=== PATIENT | male | born 1970 | race Caucasian/White ===

== ENCOUNTER 2020-06-03 10:32 | Emergency (ER) | payer BC, SELFPAY ==
[2020-06-03 11:26] VITALS: BP 144/78; PULSE 78; RESP 14; TEMP 37.1; O2SAT 98; BMI 35.6
--- NOTE | 2020-06-03 11:29 | HMH.EDUTC ---
[facility] – [place] Disposition Clinical Impression: Exposure to COVID-19 virus Disposition: Home, Self-Care Condition on Discharge: Good Instructions: DI for COVID-19 (Suspected or Confirmed ), Coronavirus Disease 2019, COVID-19: Testing and Tracing, Preventing the Spread of Coronavirus Discharge Instructions Additional Instructions: *Monitor Temp, Over the counter Motrin or Tylenol as directed/as needed Tylenol every 4 hours and Motrin every 6 hours (as long as your family doctor has told you that you can take it) for fever or pain. and straight to ER if unable to lower temp less than 101.0 after medication given Follow up IMMEDIATELY for new or worsening symptoms or no Noticeable improvement over the next 48-72 hours. 911 for difficulty breathing or swallowing You were tested for today for COVID19 your test result should be back in the next 24-48 hours, you may call to the [facility] to see if your test results are back in the next 48 hours [phone] [facility] hours are 9am-9pm You was given a handout with instructions for Self Quarantine and Self isolation for while you wait on test results and what to do if they are positive If you are positive the Health Dept will be contacting you also Referrals: Carlitos Robledo JR, MD [Primary Care Provider] - Forms: Work/School Release Time of Disposition: 11:30 Medical Decision Making - Gilmer Inquiry Pt receiving controlled substance: No Gilmer was queried for this patient: No Vital Signs: 06/03/20 11:26 06/03/20 11:37 Temperature 98.7 F 98 F Temperature Source Oral Pulse Rate 78 Pulse Rate [Right] 78 Respiratory Rate 14 16 Blood Pressure 144/78 H Blood Pressure [Right Arm] 144/78 H Blood Pressure Mean [Right Arm] 100 Blood Pressure Source Automatic Cuff Blood Pressure Source [Right Arm] Automatic Cuff Blood Pressure Position Sitting Blood Pressure Position [Right Arm] Sitting 02 Sat by Pulse Oximetry 98 Oxygen Delivery Method Room Air Orders (Tests/Meds): ORDERS Category Date Time Status Covid-19 Nasal PCR ([facility]) Routine Lab 06/03/20 11:05 Received [facility] – [place] HPI - General Stated complaint: covid exposure Time Seen by Provider: 06/03/20 11:29 Mode of Arrival: Ambulatory Source of Information: Patient Limitations: No Limitations Description of Symptoms (Recalled from Triage Doc. by RN): covid exposure, no symtpoms HEENT Symptoms (Recalled from RN notes): No Resp Symptoms (Recalled from RN notes): No Skin Symptoms (Recalled from RN notes): No MS Symptoms (Recalled from RN notes): No Functional Status (Recalled from RN notes): na - History of Present Illness Provider Complaint: Patient states that he was recently about someone that tested positive for COVID State that he is not having any symptoms but due to close exposure he wanted to get tested - Worker's Comp Is this a Worker's Comp case?: No H History - Hepatitis A Screen Drug use history?: No High risk sexual behaviors?: No History of sexually transmitted infection?: No Currently employed?: No Childcare worker?: No Do you have indoor plumbing?: Yes Do you have electricity?: Yes Attestation statement:: This patient has been screened for Hepatitis A risk factors. I have reviewed the patient's past medical history: Yes ROS Obtained: Yes All systems reviewed & no additional complaints, Yes Systems reviewed as appropriate & no additional complaints - Constitutional Constitutional: Reports system reviewed and no additional complaints, except as docu, Denies body ache, Denies chills, Denies fever(s), Denies headache(s) - ENT Ears, Nose, Mouth, and Throat: Reports system reviewed and no additional complaints, except as docu - Cardiovascular Cardiovascular: Reports system reviewed and no additional complaints, except as docu - Respiratory Respiratory: Yes system reviewed and no additional complaints, except as docu - Gastrointestinal Gastrointestingal: Reports: system reviewed and no additional
[2020-06-03 11:37] VITALS: BP 144/78; PULSE 78; RESP 16; TEMP 36.6; O2SAT 98
== END 2020-06-03 11:38 | disposition home or self-care (01) ==
PROVIDERS: Emergency Provider Nurse Practitioner; PCP Family Medicine
DX: Z20.822 Contact with and (suspected) exposure to COVID-19 (principal)
CPT/HCPCS: 99202; G0463; U0003

== ENCOUNTER 2020-06-09 10:29 | Emergency (ER) | payer BC, SELFPAY ==
[2020-06-09 10:29] VITALS: BP 148/84; PULSE 85; RESP 14; TEMP 36.8; O2SAT 98; BMI 36.3
--- NOTE | 2020-06-09 11:22 | HMH.EDUTC ---
[facility] – [place] Clinical Impression: Exposure to COVID-19 virus Disposition: Home, Self-Care Condition on Discharge: Good Instructions: DI for COVID-19 (Suspected or Confirmed ), Preventing the Spread of Coronavirus Discharge Instructions Additional Instructions: *Monitor Temp, Over the counter Motrin or Tylenol as directed/as needed Tylenol every 4 hours and Motrin every 6 hours (as long as your family doctor has told you that you can take it) for fever or pain. and straight to ER if unable to lower temp less than 101.0 after medication given Follow up IMMEDIATELY for new or worsening symptoms or no Noticeable improvement over the next 48-72 hours. 911 for difficulty breathing or swallowing You were tested for today for COVID19 your test result should be back in the next 24-48 hours, you may call to the [facility] to see if your test results are back in the next 48 hours [phone] [facility] hours are 9am-9pm You was given a handout with instructions for Self Quarantine and Self isolation for while you wait on test results and what to do if they are positive If you are positive the Health Dept will be contacting you also Referrals: Carlitos Robledo JR, MD [Primary Care Provider] - Time of Disposition: 11:47 Medical Decision Making - Medical Records Medical records reviewed: No: I reviewed the patient's medical records. - Gilmer Inquiry Pt receiving controlled substance: No Vital Signs: 06/09/20 10:29 06/09/20 11:51 Temperature 98.3 F 98.5 F Temperature Source Oral Oral Pulse Rate 85 Pulse Rate [Right] 85 Respiratory Rate 14 14 Blood Pressure 148/84 H Blood Pressure [Right Arm] 148/84 H Blood Pressure Mean [Right Arm] 105 02 Sat by Pulse Oximetry 98 [facility] [place] HPI - General Stated complaint: covid re test Time Seen by Provider: 06/09/20 11:22 Mode of Arrival: Ambulatory Source of Information: Patient Limitations: No Limitations Description of Symptoms (Recalled from Triage Doc. by RN): pt request covid test pt c/o of cough HEENT Symptoms (Recalled from RN notes): No Resp Symptoms (Recalled from RN notes): Yes Skin Symptoms (Recalled from RN notes): No MS Symptoms (Recalled from RN notes): No Functional Status (Recalled from RN notes): wnl - History of Present Illness Provider Complaint: He is here needing a covid test to be allowed to go back to work. He denies any symptoms. - Related Data Allergies Allergy/AdvReac Type Severity Reaction Status Date / Time No Known Allergies Allergy Verified 06/09/20 10:57 - Worker's Comp Is this a Worker's Comp case?: No Is this an [facility] Worker's Comp?: No Is this a [facility] Worker's Comp?: No [facility] History - Hepatitis A Screen Drug use history?: No High risk sexual behaviors?: No History of sexually transmitted infection?: No Currently employed?: No Childcare worker?: No Do you have indoor plumbing?: Yes Do you have electricity?: Yes Attestation statement:: This patient has been screened for Hepatitis A risk factors. I have reviewed the patient's past medical history: Yes ROS Obtained: Yes All systems reviewed & no additional complaints - Constitutional Constitutional: Reports system reviewed and no additional complaints, except as docu - Eyes Eyes: Reports system reviewed and no additional complaints, except as docu - ENT Ears, Nose, Mouth, and Throat: Reports system reviewed and no additional complaints, except as docu - Cardiovascular Cardiovascular: Reports system reviewed and no additional complaints, except as docu - Respiratory Respiratory: Reports system reviewed and no additional complaints, except as docu - Gastrointestinal Gastrointestingal: Reports: system reviewed and no additional complaints, except as docu Physical Exam - General General appearance: alert, in no apparent distress - Head Head exam: atraumatic, normocephalic, normal inspection - Eye Eye exam: Present: normal appearance, PERRL, EOMI - ENT ENT exam:
[2020-06-09 11:51] VITALS: BP 148/84; PULSE 85; RESP 14; TEMP 36.9; O2SAT 98
== END 2020-06-09 11:53 | disposition home or self-care (01) ==
PROVIDERS: Emergency Provider Nurse Practitioner Family; PCP Family Medicine
DX: Z20.822 Contact with and (suspected) exposure to COVID-19 (principal)
CPT/HCPCS: 99202; G0463; U0003

== ENCOUNTER 2020-09-14 11:15 | Emergency (ER) | payer BC, SELFPAY ==
[2020-09-14 11:20] VITALS: BP 146/94; PULSE 110; RESP 14; TEMP 37.5; O2SAT 96; BMI 35.6
[2020-09-14 11:40] LABS: UTC Influenza A Antigen Negative (Negative); UTC Influenza B Antigen Negative (Negative)
--- NOTE | 2020-09-14 11:55 | HMH.EDUTC ---
[facility] – [place] Disposition Clinical Impression: Exposure to COVID-19 virus, Viral syndrome Disposition: Home, Self-Care Condition on Discharge: Good Instructions: DI for Viral Syndrome, DI for COVID-19 (Suspected or Confirmed ), Preventing the Spread of Coronavirus Discharge Instructions Additional Instructions: Drink plenty of fluids. Take tylenol for pain or fever. Return if you begin to have difficulty breathing. Follow up with your regular doctor. GO TO THE ER FOR ANY WORSENING SYMPTOMS Prescriptions: Benzonatate [Tessalon Perle 100mg Cap] 100 mg PO TIDP PRN #30 cap PRN Reason: Cough Transmission Status: Received by [facility] Azithromycin [Z-Angel 250mg Tab*] 250 mg PO UD DOSE PK #6 tab Transmission Status: Received by [facility] Referrals: PCP,No [Primary Care Provider] - Forms: Work/School Release Time of Disposition: 12:03 Medical Decision Making - Medical Records Medical records reviewed: No: I reviewed the patient's medical records. - Gilmer Inquiry Pt receiving controlled substance: No Vital Signs: 09/14/20 11:20 09/14/20 12:02 Temperature 99.5 F 99.5 F Temperature Source Oral Pulse Rate 110 H Pulse Rate [Right Brachial] 110 H Respiratory Rate 14 14 Blood Pressure 146/94 H Blood Pressure [Right Arm] 146/94 H Blood Pressure Mean [Right Arm] 111 Blood Pressure Source [Right Arm] Automatic Cuff Blood Pressure Position [Right Arm] Sitting 02 Sat by Pulse Oximetry 96 Oxygen Delivery Method Room Air - Lab Data Lab results reviewed: Yes: I reviewed the patient's lab results. Lab Results 09/14/20 11:29: Influenza Type A Ag Negative, Influenza Type B Ag Negative [facility] [place] HPI - General Stated complaint: covid test Time Seen by Provider: 09/14/20 11:56 Mode of Arrival: Ambulatory Source of Information: Patient Limitations: No Limitations Description of Symptoms (Recalled from Triage Doc. by RN): PATIENT C/O BODY ACHES AND HEADACHE SINCE YESTERDAY AFTERNOON AND HAD FEVER LAST NIGHT. HEENT Symptoms (Recalled from RN notes): No Resp Symptoms (Recalled from RN notes): No Skin Symptoms (Recalled from RN notes): No MS Symptoms (Recalled from RN notes): Yes Functional Status (Recalled from RN notes): WNL - History of Present Illness Provider Complaint: He states that for the past 2 daays he has had fever up to 101, and body aches. He denies any known sick contacts. - Related Data Previous Rx's Medication Instructions Recorded Azithromycin [Z-Angel 250mg Tab*] 250 mg PO UD DOSE PK #6 tab 09/14/20 Benzonatate [Tessalon Perle 100mg 100 mg PO TIDP PRN #30 cap 09/14/20 Cap] Allergies Allergy/AdvReac Type Severity Reaction Status Date / Time No Known Allergies Allergy Verified 06/09/20 10:57 - Worker's Comp Is this a Worker's Comp case?: No [facility] History - Hepatitis A Screen Drug use history?: No High risk sexual behaviors?: No History of sexually transmitted infection?: No Currently employed?: No Childcare worker?: No Do you have indoor plumbing?: Yes Do you have electricity?: Yes Attestation statement:: This patient has been screened for Hepatitis A risk factors. I have reviewed the patient's past medical history: Yes - Social History Alcohol Intake: never Occupational Status: other ROS Obtained: Yes All systems reviewed & no additional complaints - Constitutional Constitutional: Reports system reviewed and no additional complaints, except as docu - Eyes Eyes: Reports system reviewed and no additional complaints, except as docu - ENT Ears, Nose, Mouth, and Throat: Reports system reviewed and no additional complaints, except as docu - Cardiovascular Cardiovascular: Reports system reviewed and no additional complaints, except as docu - Respiratory Respiratory: Reports system reviewed and no additional complaints, except as docu - Gastrointestinal Gastrointestingal: Reports: system reviewed and no additional complaints
[2020-09-14 12:02] VITALS: BP 146/94; PULSE 110; RESP 14; TEMP 37.5; O2SAT 96
== END 2020-09-14 12:07 | disposition home or self-care (01) ==
PROVIDERS: Emergency Provider Nurse Practitioner Family
DX: Z20.822 Contact with and (suspected) exposure to COVID-19 (principal); B34.9 Viral infection, unspecified
CPT/HCPCS: 87804; 99202; G0463; U0003

== ENCOUNTER 2021-04-13 14:46 | Emergency (ER) | payer BC, SELFPAY ==
--- NOTE | 2021-04-13 14:57 | XR_ITS ---
PROCEDURE: XR ANKLE LT MIN 3V CLINICAL INDICATION: rolled COMPARISON: No exams were available for comparison FINDINGS: No fracture or dislocation. No lytic or blastic change. There is normal mineralization. Mild hypertrophic change of the lateral malleolus. Mild spurring of the anterior distal tibia. Small calcaneal spur. Other findings:None. IMPRESSION: Degenerative changes, no acute finding. Dictated by: Doroteo Freedman MD 04/13/2021 15:44 Doroteo Freedman MD in [place] 04/13/2021 15:44
--- NOTE | 2021-04-13 15:32 | HMH.EDUTC ---
[facility] – [place] Disposition Clinical Impression: Left ankle sprain Qualifiers: Encounter type: initial encounter Involved ligament of ankle: unspecified ligament Qualified Code(s): S93.402A - Sprain of unspecified ligament of left ankle, initial encounter Disposition: Home, Self-Care Condition on Discharge: Good Instructions: Ankle Sprain, DI for Ankle Sprain Additional Instructions: Rest the extremity, apply ice for 15 minutes as tolerated three or four times per day, Wear the stephenie wrap for compression, Elevate the extremity as tolerated while you are resting. Take ibuprofen for pain. I sent in a prescription to your pharmacy. Follow up with Dr. Kebede (podiatry). Sometimes there can be fractures that don't show up well on the first set of x-rays. So, you should follow up if you continue to have symptoms. I put in a referral but you need to call his office and schedule an appointment. Follow up with your regular doctor. GO TO THE ER FOR ANY WORSENING SYMPTOMS Prescriptions: Ibuprofen [Ibuprofen 600mg Tablet] 600 mg PO Q6HP PRN #30 tab PRN Reason: Mild Pain Transmission Status: Received by [id number] Referrals: Carlitos Robledo JR, MD [Primary Care Provider] - Jayshree Kebede DPM [Staff Physician] - Forms: Work/School Release Time of Disposition: 15:35 Medical Decision Making - Medical Records Medical records reviewed: No: I reviewed the patient's medical records. - Gilmer Inquiry Pt receiving controlled substance: No Vital Signs: 04/13/21 16:49 04/13/21 17:53 Temperature 98.3 F 98.3 F Temperature Source Oral Pulse Rate 77 Pulse Rate [Left] 77 Respiratory Rate 16 16 Blood Pressure 154/96 H Blood Pressure [Right Arm] 154/96 H Blood Pressure Mean [Right Arm] 115 02 Sat by Pulse Oximetry 96 - Radiology Data #1 Image(s): Ankle Image Reviewed: Yes I reviewed the patient's radiology image Preliminary Findings: Abnormal, No Fracture Seen PROCEDURE: XR ANKLE LT MIN 3V CLINICAL INDICATION: rolled COMPARISON: No exams were available for comparison FINDINGS: No fracture or dislocation. No lytic or blastic change. There is normal mineralization. Mild hypertrophic change of the lateral malleolus. Mild spurring of the anterior distal tibia. Small calcaneal spur. Other findings:None. IMPRESSION: Degenerative changes, no acute finding. Dictated by: Doroteo Freedman MD 04/13/2021 15:44 Doroteo Freedman MD in [place] 04/13/2021 15:44 [facility] [place] HPI - General Stated complaint: AO 1110, left ankle pain Time Seen by Provider: 04/13/21 15:32 - History of Present Illness Provider Complaint: He states that he was at work when he twisted his left ankle. This caused him to begin having left ankle pain and swelling. He states that walking and bearing weight on it make it worse. - Related Data Previous Rx's Medication Instructions Recorded Azithromycin [Z-Angel 250mg Tab*] 250 mg PO UD DOSE PK #6 tab 09/14/20 Benzonatate [Tessalon Perle 100mg 100 mg PO TIDP PRN #30 cap 09/14/20 Cap] Ibuprofen [Ibuprofen 600mg 600 mg PO Q6HP PRN #30 tab 04/13/21 Tablet] Allergies Allergy/AdvReac Type Severity Reaction Status Date / Time No Known Allergies Allergy Verified 06/09/20 10:57 [facility] History - Hepatitis A Screen Attestation statement:: This patient has been screened for Hepatitis A risk factors. I have reviewed the patient's past medical history: Yes - Social History Alcohol Intake: never Occupational Status: other ROS Obtained: Yes All systems reviewed & no additional complaints - Constitutional Constitutional: Denies chills, Denies fever(s) - Musculoskeletal Musculoskeletal: Reports as per HPI - Integumentary/Breasts Skin/Breast: Denies redness, Denies rash, Denies wounds Physical Exam - General General appearance: alert, in no apparent distress - Head Head exam: atraumatic, normocephalic, normal inspection - Eye Eye exam: Pre
[2021-04-13 16:49] VITALS: BP 154/96; PULSE 77; RESP 16; TEMP 36.8; O2SAT 96; BMI 33.3
[2021-04-13 17:53] VITALS: BP 154/96; PULSE 77; RESP 16; TEMP 36.8
== END 2021-04-13 17:54 | disposition home or self-care (01) ==
PROVIDERS: Emergency Provider Nurse Practitioner Family; PCP Family Medicine
DX: S93.402A Sprain of unspecified ligament of left ankle, initial encounter (principal); X50.1XXA Overexertion from prolonged static or awkward postures, initial encounter; Y92.69 Other specified industrial and construction area as the place of occurrence of the external cause; Y99.0 Civilian activity done for income or pay
CPT/HCPCS: 29515; 73610; 99202; G0463

== ENCOUNTER 2021-07-18 09:13 | Emergency (ER) | payer BC, SELFPAY ==
[2021-07-18 09:15] VITALS: BP 158/81; PULSE 103; RESP 17; TEMP 37.4; O2SAT 98; BMI 36.3
--- NOTE | 2021-07-18 09:38 | HMH.EDUTC ---
[facility] [place] Clinical Impression: Otitis media Qualifiers: Otitis media type: unspecified Laterality: left Qualified Code(s): H66.92 - Otitis media, unspecified, left ear Disposition: Home, Self-Care Condition on Discharge: Good Instructions: Sinusitis, DI for Sinusitis, Meclizine Additional Instructions: *Monitor Temp, Over the counter Motrin or Tylenol as directed/as needed Tylenol every 4 hours and Motrin every 6 hours (as long as your family doctor has told you that you can take it) for fever or pain. and straight to ER if unable to lower temp less than 101.0 after medication given *Warm salt water gargles may help to soothe the throat *Throat Lozenges *Warm fluids like tea with honey may help to soothe the throat *Sleep elevated *Humidifier/Vaporizer Follow up IMMEDIATELY for new or worsening symptoms or no Noticeable improvement over the next 48-72 hours. 911 for difficulty breathing or swallowing You were tested for today for COVID19 your test result should be back in the next 24-48 hours, you may check your results on the [facility] [employer] health Portal if you have trouble logging on or seeing your results you may call support If you are positive someone from the hospital will be calling you Make sure to take your Vitamins Vit. C Vit D and Zinc if you can take them Prescriptions: Meclizine HCl [Meclizine 25mg Tab] 25 mg PO Q8HP PRN #15 tab PRN Reason: Dizziness Transmission Status: [facility] Amoxicillin/Potassium Clav [Augmentin 875-125 Tablet] 1 tab PO Q12H 10 Days #20 tab Transmission Status: Pending to [id number] methylPREDNISolone [Medrol 4mg tab] 4 mg PO DIRECTED #21 tab Transmission Status: Pending to [id number] Referrals: Carlitos Robledo JR, MD [Primary Care Provider] - As needed Forms: Work/School Release Time of Disposition: 09:50 Medical Decision Making - Gilmer Inquiry Pt receiving controlled substance: No Gilmer was queried for this patient: No Vital Signs: 07/18/21 09:15 Temperature 99.4 F Temperature Source Oral Pulse Rate [Right Brachial] 103 H Respiratory Rate 17 Blood Pressure [Right Arm] 158/81 H Blood Pressure Mean [Right Arm] 106 Blood Pressure Source [Right Arm] Automatic Cuff Blood Pressure Position [Right Arm] Sitting 02 Sat by Pulse Oximetry 98 Oxygen Delivery Method Room Air - Lab Data Lab results reviewed: Yes: I reviewed the patient's lab results. Orders (Tests/Meds): ORDERS Category Date Time Status Covid-19 Nasal PCR ([facility]) Routine Lab 07/18/21 09:22 Received [facility] [place] - General Stated complaint: fever, sporadic dizziness Time Seen by Provider: 07/18/21 09:38 Mode of Arrival: Ambulatory Source of Information: Patient Limitations: No Limitations Description of Symptoms (Recalled from Triage Doc. 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
[2021-07-18 09:50] VITALS: BP 158/81; PULSE 103; RESP 17; TEMP 37.4; O2SAT 98
[2021-07-18 09:52] LABS: UTC Influenza A Antigen Negative (Negative)
[2021-07-18 09:53] LABS: UTC Influenza B Antigen Negative (Negative)
== END 2021-07-18 09:56 | disposition home or self-care (01) ==
PROVIDERS: Emergency Provider Nurse Practitioner; PCP Family Medicine
DX: H66.92 Otitis media, unspecified, left ear (principal); R42 Dizziness and giddiness; R00.0 Tachycardia, unspecified; J01.90 Acute sinusitis, unspecified; R50.9 Fever, unspecified; M79.10 Myalgia, unspecified site; R23.2 Flushing; Z20.822 Contact with and (suspected) exposure to COVID-19; Z79.899 Other long term (current) drug therapy
CPT/HCPCS: 87804; 99202; 99212; 99213; C9803; G0463; U0003; U0005

== ENCOUNTER 2021-10-29 19:09 | Emergency (ER) | payer BC, SELFPAY ==
--- NOTE | 2021-10-29 19:19 | XR_ITS ---
PROCEDURE INFORMATION: Exam: XR Left Ribs with PA Chest Exam date and time: 10/29/2021 7:16 PM Age: 51 years old Clinical indication: Injury or trauma; Fall; Rib area, left side; Blunt trauma TECHNIQUE: Imaging protocol: XR Left ribs with PA chest. Views: 3 views COMPARISON: No relevant prior studies available. FINDINGS: Lungs: Visualized lungs are clear. Pleural spaces: No pleural effusion. No pneumothorax. Heart/Mediastinum: Within normal limits. Bones/joints: No acute fracture or malalignment. Soft tissues: Unremarkable. IMPRESSION: No acute findings. No evidence of displaced rib fracture.
[2021-10-29 19:50] VITALS: BP 138/90; PULSE 89; RESP 19; TEMP 36.8; O2SAT 96; BMI 34.2
--- NOTE | 2021-10-29 20:25 | HMH.EDUTC ---
[facility] [place] Disposition Clinical Impression: Rib pain on left side Disposition: Home, Self-Care Condition on Discharge: Good Instructions: DI for Rib Contusion, How To Perform RICE (Rest, Ice, Compress, Elevate), Acetaminophen (Alternative Therapy) Additional Instructions: *Ibuprofen cory 6 hours with meal as needed for pain/inflammation if you can take it if not take Tylenol *Not additional anti-inflammatory like motrin, aleve, advil with the above amount of ibuprofen. You can still take Tylenol every 4 hours as needed if you need something else for pain *Ice 20 minutes every 2 hours for the first 48 hours after the initial injury followed by moist heat every 20 minutes 3-4 times a day to affected area *Keep this area active, no movement leads to more stiffness, However take it easy and avoid heavy lifting pushing or pulling *Follow up with you family doctor if no improvement for further treatment Over the counter Lidocaine patches may help with pain and discomfort Referrals: Carlitos Robledo JR, MD [Primary Care Provider] - As needed Time of Disposition: 20:34 Medical Decision Making - Gilmer Inquiry Pt receiving controlled substance: No Gilmer was queried for this patient: No Vital Signs: 10/29/21 19:50 Temperature 98.3 F Temperature Source Oral Pulse Rate [Right Brachial] 89 Respiratory Rate 19 Blood Pressure [Right Arm] 138/90 Blood Pressure Mean [Right Arm] 106 Blood Pressure Source [Right Arm] Automatic Cuff Blood Pressure Position [Right Arm] Sitting 02 Sat by Pulse Oximetry 96 Oxygen Delivery Method Room Air - Radiology Data #1 Image(s): Chest (with left ribs) Image Reviewed: Yes I have reviewed radiologist's interpretation IMPRESSION: No acute findings. No evidence of displaced rib fracture. [facility] [place] HPI - General Stated complaint: AO fell 1530 hurt rib Time Seen by Provider: 10/29/21 20:25 Mode of Arrival: Ambulatory Source of Information: Patient Limitations: No Limitations Description of Symptoms (Recalled from Triage Doc. by RN): PATIENT STATES THAT HE WAS TAKING OUT THE TRASH AND SOMETHING HIT HIM IN HIS LEFT RIB AREA HEENT Symptoms (Recalled from RN notes): No Resp Symptoms (Recalled from RN notes): No Skin Symptoms (Recalled from RN notes): No MS Symptoms (Recalled from RN notes): Yes Functional Status (Recalled from RN notes): wnl - History of Present Illness Provider Complaint: Patient states that he was taking the trash out this evening when he hit his left ribs on the edge of the trash can States that he has been having pain in left ribs ever since about 4pm that is worse when he moves certain ways Denies any other injury Denies chest pain - Related Data Previous Rx's Medication Instructions Recorded Amoxicillin/Potassium Clav 1 tab PO Q12H 10 Days #20 tab 07/18/21 [Augmentin 875-125 Tablet] Meclizine HCl [Meclizine 25mg Tab] 25 mg PO Q8HP PRN #15 tab 07/18/21 methylPREDNISolone [Medrol 4mg 4 mg PO DIRECTED #21 tab 07/18/21 tab] Allergies Allergy/AdvReac Type Severity Reaction Status Date / Time No Known Allergies Allergy Verified 06/09/20 10:57 - Worker's Comp Is this a Worker's Comp case?: No [facility] History - Hepatitis A Screen Attestation statement:: This patient has been screened for Hepatitis A risk factors. I have reviewed the patient's past medical history: Yes - Social History Alcohol Intake: never Occupational Status: other ROS Obtained: Yes All systems reviewed & no additional complaints, Yes Systems reviewed as appropriate & no additional complaints - Constitutional Constitutional: Reports system reviewed and no additional complaints, except as docu, Denies body ache, Denies chills, Denies fever(s) - Eyes Eyes: Reports system reviewed and no additional complaints, except as docu - ENT Ears, Nose, Mouth, and Throat: Reports system reviewed and no additional complaints, except as docu - Cardiovascular Cardiovascular: Reports sy
[2021-10-29 20:36] VITALS: BP 138/90; PULSE 89; RESP 19; TEMP 36.8; O2SAT 96
== END 2021-10-29 20:40 | disposition home or self-care (01) ==
PROVIDERS: Emergency Provider Nurse Practitioner; PCP Family Medicine
DX: S20.212A Contusion of left front wall of thorax, initial encounter (principal); W22.8XXA Striking against or struck by other objects, initial encounter; Y92.018 Other place in single-family (private) house as the place of occurrence of the external cause
CPT/HCPCS: 71101; 99212; G0463

== ENCOUNTER 2021-10-31 18:51 | Emergency (ER) | payer BC, SELFPAY ==
--- NOTE | 2021-10-31 19:09 | HMH.EDUTC ---
[facility] [place] Disposition Clinical Impression: Exposure to COVID-19 virus Disposition: Home, Self-Care Condition on Discharge: Good Instructions: DI for COVID-19 (Suspected or Confirmed ), Preventing the Spread of Coronavirus Discharge Instructions Additional Instructions: Drink plenty of fluids. Take tylenol for pain or fever. Return if you begin to have difficulty breathing. Follow up with your regular doctor. GO TO THE ER FOR ANY WORSENING SYMPTOMS Quarantine until you know the results of your covid-19 test. If it is positive, the health department should call you and give you further instructions about your length of Quarantine and other things. Notify your school or workplace of your results and follow their instructions regarding return to work/school. Referrals: Carlitos Robledo JR, MD [Primary Care Provider] - Time of Disposition: 19:37 Medical Decision Making - Medical Records Medical records reviewed: No: I reviewed the patient's medical records. - Gilmer Inquiry Pt receiving controlled substance: No Vital Signs: 10/31/21 19:21 10/31/21 19:41 Temperature 98.5 F 98.5 F Temperature Source Oral Pulse Rate 81 Pulse Rate [Left Radial] 81 Respiratory Rate 18 18 Blood Pressure 156/87 H Blood Pressure [Right Arm] 156/87 H Blood Pressure Mean [Right Arm] 110 02 Sat by Pulse Oximetry 94 L Orders (Tests/Meds): ORDERS Category Date Time Status Covid-19 Nasal PCR ([facility]) Routine Lab 10/31/21 19:12 Received [facility] [place] HPI - General Stated complaint: covid test Time Seen by Provider: 10/31/21 19:09 - History of Present Illness Provider Complaint: A member of his family tested positive for covid-19 today. He denies any symptoms. - Related Data Previous Rx's Medication Instructions Recorded Amoxicillin/Potassium Clav 1 tab PO Q12H 10 Days #20 tab 07/18/21 [Augmentin 875-125 Tablet] Meclizine HCl [Meclizine 25mg Tab] 25 mg PO Q8HP PRN #15 tab 07/18/21 methylPREDNISolone [Medrol 4mg 4 mg PO DIRECTED #21 tab 07/18/21 tab] Allergies Allergy/AdvReac Type Severity Reaction Status Date / Time No Known Allergies Allergy Verified 06/09/20 10:57 [facility] History - Hepatitis A Screen Attestation statement:: This patient has been screened for Hepatitis A risk factors. I have reviewed the patient's past medical history: Yes - Social History Alcohol Intake: never Occupational Status: other ROS Obtained: Yes All systems reviewed & no additional complaints - Constitutional Constitutional: Denies chills, Denies fever(s) - Eyes Eyes: Denies eye discharge - ENT Ears, Nose, Mouth, and Throat: Denies dizziness, Denies otalgia, Denies sore throat Physical Exam - General General appearance: alert, in no apparent distress - Head Head exam: atraumatic, normocephalic, normal inspection - Eye Eye exam: Present: normal appearance, PERRL, EOMI - ENT ENT exam: Present: normal exam, normal oropharynx, mucous membranes moist, TM's normal bilaterally, normal external ear exam - Neck Neck exam: Present: normal inspection, full ROM, trachea midline. Absent: meningismus, lymphadenopathy - Chest Chest inspection: Present: normal inspection, symmetric chest wall rise. Absent: tenderness - Respiratory Respiratory exam: Present: normal lung sounds bilaterally. Absent: respiratory distress - Cardiovascular Cardiovascular exam: Present: regular rate, normal rhythm. Absent: JVD - Abdominal Exam Abdominal exam: Present: soft, normal bowel sounds. Absent: distention, tenderness, guarding - Extremities Exam Extremities exam: Present: normal inspection, full ROM, normal capillary refill. Absent: calf tenderness - Back Exam Back exam: Present: normal inspection. Absent: tenderness - Neurological Exam Neurological exam: Present: alert, oriented X3 - Psychiatric Psychiatric exam: Present: normal affect, normal mood - Skin Skin exam: Present: warm
[2021-10-31 19:21] VITALS: BP 156/87; PULSE 81; RESP 18; TEMP 36.9; O2SAT 94; BMI 33.9
[2021-10-31 19:41] VITALS: BP 156/87; PULSE 81; RESP 18; TEMP 36.9
== END 2021-10-31 19:46 | disposition home or self-care (01) ==
PROVIDERS: Emergency Provider Nurse Practitioner Family; PCP Family Medicine
DX: Z20.822 Contact with and (suspected) exposure to COVID-19 (principal)
CPT/HCPCS: 99212; C9803; G0463; U0003; U0005

== ENCOUNTER 2022-02-20 14:12 | Emergency (ER) | payer BC, SELFPAY ==
--- NOTE | 2022-02-20 14:33 | XR_ITS ---
FINAL REPORT CLINICAL HISTORY: rolled right ankle, pain COMPARISON: April 13, 2021 FINDINGS: LEFT ANKLE: Three views of the left ankle were obtained. There is no acute fracture or dislocation. The joint spaces and mortise are intact. There is soft tissue edema particularly over the lateral malleolus. An ankle joint effusion is present. There is a small plantar spur. IMPRESSION: No acute bony abnormality. Reviewed, Interpreted and Dictated by Beltran Mccloud MD Transcribed by Chilango Kim Authenticated and [facility]
--- NOTE | 2022-02-20 14:33 | XR_ITS ---
FINAL REPORT CLINICAL HISTORY: rolled right ankle, pain FINDINGS: 3 views of the left foot were obtained. There is no acute fracture or dislocation. There is moderate joint space narrowing at the 1st IP joint. There is a small plantar spur. A moderate ankle joint effusion is noted. IMPRESSION: No acute bony abnormality. Reviewed, Interpreted and Dictated by Beltran Mccloud MD Transcribed by Chilango Kim Authenticated and . [facility]
[2022-02-20 14:40] VITALS: BP 159/91; PULSE 101; RESP 18; TEMP 36.9; O2SAT 98; BMI 33.7
--- NOTE | 2022-02-20 14:41 | EXP.UTC ---
Discharge Plan Disposition Patient Disposition: Home, Self-Care Condition: Good Prescriptions Prescriptions: New ibuprofen [IBU] 800 mg tablet 800 mg PO Q8HP PRN (Reason: Moderate Pain) Qty: 30 0RF No Action methylprednisolone 4 MG tablet 4 mg PO DIRECTED Qty: 21 0RF Rx Instructions: Take as directed on package instructions amoxicillin-pot clavulanate 1 EACH tablet 1 tab PO Q12H 10 Days Qty: 20 0RF meclizine 25 MG tablet,chewable 25 mg PO Q8HP PRN (Reason: Dizziness) Qty: 15 0RF Referrals Follow up/Referrals: Provider,Referral, MD [Primary Care Provider] - See instructions Activity Restrictions/Add. Instructions Additional Instructions/Restrictions: Rest the extremity, apply ice for 15 minutes as tolerated three or four times per day, Wear the stephenie wrap for compression, Elevate the extremity as tolerated while you are resting. Take ibuprofen for pain. I sent in a prescription to your pharmacy. Follow up with Dr. Kebede (podiatry). Sometimes there can be fractures that don't show up well on the first set of x-rays. So, you should follow up if you continue to have symptoms. I put in a referral but you need to call her office and schedule an appointment. Follow up with your regular doctor. GO TO THE ER FOR ANY WORSENING SYMPTOMS Clinical Impressions Clinical Impression: Left ankle sprain Discharge ED Provider: Howard Chamberlain [facility] General Stated complaint: LEFT ANKLE ROLLED IT Time Seen by Provider: 02/20/22 14:41 History of Present Illness Provider Complaint: He states that he twisted his left ankle yesterday. He is having left ankle and foot pain. Related Data Previous Rx's Medication Instructions Recorded amoxicillin 875 mg-potassium 1 tab PO Q12H 10 days #20 tabs 07/18/21 clavulanate 125 mg tablet meclizine 25 mg chewable tablet 25 mg PO Q8HP PRN Dizziness #15 07/18/21 tabs methylprednisolone 4 mg tablet 4 mg PO DIRECTED #21 tabs 07/18/21 ibuprofen 800 mg tablet (IBU) 800 mg PO Q8HP PRN Moderate Pain 02/20/22 #30 tabs Allergies Allergy/AdvReac Type Severity Reaction Status Date / Time No Known Allergies Allergy Verified 06/09/20 10:57 [facility] Social History Smoking Status: Never smoker alcohol intake: never current occupational status: other Travel in the last 8 weeks: None ROS Obtained: Yes All systems reviewed & no additional complaints except as documented Constitutional Constitutional: Denies chills and Denies fever(s) Integumentary/Breasts Skin/Breast: Denies redness, Denies rash and Denies wounds Neurologic Neurologic: Denies paresthesias Physical Exam General General appearance: alert and in no apparent distress Head Head exam: atraumatic, normocephalic and normal inspection Eye Eye exam: Present normal appearance, PERRL and EOMI ENT ENT exam: Present normal exam, normal oropharynx, mucous membranes moist, TM's normal bilaterally and normal external ear exam Neck Neck exam: Present normal inspection, full ROM and trachea midline; Absent meningismus or lymphadenopathy Chest Chest inspection: Present normal inspection and symmetric chest wall rise; Absent tenderness Respiratory Respiratory exam: Present normal lung sounds bilaterally; Absent respiratory distress Cardiovascular Cardiovascular exam: Present regular rate and normal rhythm; Absent JVD Abdominal Exam Abdominal exam: Present soft and normal bowel sounds; Absent distention, tenderness or guarding Extremities Exam Extremities exam: Present normal capillary refill; Absent calf tenderness Expanded Lower Extremity Exam Left: Ankle exam: Present full ROM and tenderness; Absent swelling, abrasion, laceration, ecchymosis, deformity, crepitus, dislocation, erythema, tenderness over talofibular lig or anterior draw sign Foot/toe exam: Present full ROM and tenderness; Absent swelling, abrasion, laceration
[2022-02-20 15:40] VITALS: BP 159/91; PULSE 101; RESP 18; TEMP 36.9; O2SAT 98
== END 2022-02-20 15:40 | disposition home or self-care (01) ==
PROVIDERS: Emergency Provider Nurse Practitioner Family
DX: S93.402A Sprain of unspecified ligament of left ankle, initial encounter (principal)
CPT/HCPCS: 73610; 73630; 99213; G0463

== ENCOUNTER 2022-06-24 12:40 | Emergency (ER) | payer OTHER, SELFPAY ==
--- NOTE | 2022-06-24 12:48 | XR_ITS ---
PROCEDURE INFORMATION: Exam: XR Right Shoulder Exam date and time: 06/24/2022 12:54 PM Age: 51 years old Clinical indication: Injury or trauma; Fall; Blunt trauma (contusions or hematomas); Shoulder; Right TECHNIQUE: Imaging protocol: Radiologic exam of the Right shoulder. Views: 2 or more views. COMPARISON: No relevant prior studies available. FINDINGS: Bones/joints: No acute fracture. Small ossicle at the acromial clavicular joint. No significant degenerative joint disease. Soft tissues: Soft tissue swelling overlying the shoulder. IMPRESSION: 1. No acute fracture. Small ossicle at the acromial clavicular joint. No significant degenerative joint disease. 2. Soft tissue swelling overlying the shoulder.
[2022-06-24 13:15] VITALS: BP 146/86; PULSE 76; RESP 19; TEMP 36.7; O2SAT 98; BMI 34.4
--- NOTE | 2022-06-24 13:58 | EXP.UTC ---
Discharge Plan Disposition Patient Disposition: Home, Self-Care Condition: Good Prescriptions Prescriptions: New ibuprofen [IBU] 800 mg tablet 800 mg PO TIDP PRN (Reason: Moderate Pain) Qty: 20 0RF methocarbamol 500 mg tablet 500 mg PO Q8H PRN (Reason: muscle spasm) Qty: 15 0RF No Action methylprednisolone 4 MG tablet 4 mg PO DIRECTED Qty: 21 0RF Rx Instructions: Take as directed on package instructions amoxicillin-pot clavulanate 1 EACH tablet 1 tab PO Q12H 10 Days Qty: 20 0RF meclizine 25 MG tablet,chewable 25 mg PO Q8HP PRN (Reason: Dizziness) Qty: 15 0RF ibuprofen [IBU] 800 mg tablet 800 mg PO Q8HP PRN (Reason: Moderate Pain) Qty: 30 0RF Referrals Follow up/Referrals: Provider,Referral, MD [Primary Care Provider] - See instructions Activity Restrictions/Add. Instructions Additional Instructions/Restrictions: *Ibuprofen cory 6 hours with meal as needed for pain/inflammation *Not additional anti-inflammatory like motrin, aleve, advil with the above amount of ibuprofen. You can still take Tylenol every 4 hours as needed if you need something else for pain *Ice 20 minutes every 2 hours for the first 48 hours after the initial injury followed by moist heat every 20 minutes 3-4 times a day to affected area *Muscle relaxer every 8 hours as needed for muscle spasms but remember, it WILL cause drowsiness You cannot take it and drive, operate machinery or care for small children. *Keep this area active, no movement leads to more stiffness, However take it easy and avoid heavy lifting pushing or pulling *Follow up with you family doctor if no improvement for further treatment Clinical Impressions Clinical Impression: Right shoulder pain Instructions Patient Instructions: DI for Shoulder Pain, DI for Muscle Spasm, Ibuprofen Discharge ED Provider[place] Miranda Zav[place] [facility] [place] Stated complaint: AO@home 06/23 RT shoulder pain Mode of Arrival: Ambulatory Source of Information: Patient Limitations: No Limitations Time Seen by Provider: 06/24/22 13:59 Description of Symptoms (Recalled from Triage Doc. by RN): PATIENT REPORTS FALLING LAST NIGHT AND LANDING ON RIGHT SHOULDER HEENT Symptoms (Recalled from RN notes): No Resp Symptoms (Recalled from RN notes): No Skin Symptoms (Recalled from RN notes): No MS Symptoms (Recalled from RN notes): Yes Functional Status (Recalled from RN notes): WNL History of Present Illness Provider Complaint: Patient states that he fell last night and landed on his right shoulder states that since then he has been having spasm like pain in his shoulder that at times will shoot down his arm States that he has been still able to move it just hurts at times when he does Related Data Previous Rx's Medication Instructions Recorded amoxicillin 875 mg-potassium 1 tab PO Q12H 10 days #20 tabs 07/18/21 clavulanate 125 mg tablet meclizine 25 mg chewable tablet 25 mg PO Q8HP PRN Dizziness #15 07/18/21 tabs methylprednisolone 4 mg tablet 4 mg PO DIRECTED #21 tabs 07/18/21 ibuprofen 800 mg tablet (IBU) 800 mg PO Q8HP PRN Moderate Pain 02/20/22 #30 tabs ibuprofen 800 mg tablet (IBU) 800 mg PO TIDP PRN Moderate Pain 06/24/22 #20 tabs methocarbamol 500 mg tablet 500 mg PO Q8H PRN muscle spasm #15 06/24/22 tabs Allergies Allergy/AdvReac Type Severity Reaction Status Date / Time No Known Allergies Allergy Verified 06/09/20 10:57 Worker's Comp Is this a Worker's Comp case?: No [facility] Disclaimer: The information contained in this section may have been updated after the patient was seen, as this information can be updated by other users. Social History (Updated 02/20/22 @ 23:11 by Howard Chamberlain APRN) Smoking Status: Never smoker alcohol intake: never current occupational status: other Travel in the last 8 weeks: None ROS Obtained: Yes All systems reviewed & no additional complaints except as documented and Yes Systems reviewed a
[2022-06-24 14:14] VITALS: BP 146/86; PULSE 76; RESP 19; TEMP 36.7; O2SAT 98
== END 2022-06-24 14:16 | disposition home or self-care (01) ==
PROVIDERS: Emergency Provider Nurse Practitioner
DX: M25.511 Pain in right shoulder (principal); W19.XXXA Unspecified fall, initial encounter
CPT/HCPCS: 73030; 99212; 99213; G0463

== ENCOUNTER → 2022-07-19 12:43 | Outpatient (CLI) | payer OTHER, SELFPAY ==
[2022-07-19 13:58] VITALS: BMI 33.5
--- NOTE | 2022-07-25 15:03 | DIET.NUTRFU ---
Patient called RD to review BS over the last couple days 110-130 with today being 155 and he seemed concerned. He was also complaining of a HARDIN and not feeling well which may have contributed to increase BS. provider did give him a goal of 110-130 but definitely below 200, the is RD agreed. Also reviewed low BS, call provide if 40 or below. Has blood draw for A1c in August
== END ==
PROVIDERS: PCP Nurse Practitioner Family; Visit Provider Nurse Practitioner Family
DX: Z71.3 Dietary counseling and surveillance (principal); E78.00 Pure hypercholesterolemia, unspecified
CPT/HCPCS: 97802

== ENCOUNTER 2022-07-31 17:55 | Emergency (ER) | payer OTHER, SELFPAY ==
[2022-07-31 18:30] VITALS: BP 158/83; PULSE 74; RESP 20; TEMP 37.5; O2SAT 96; BMI 32.8
[2022-07-31 18:56] LABS: UTC Influenza A Antigen Negative (Negative); UTC Influenza B Antigen Negative (Negative)
--- NOTE | 2022-07-31 19:32 | EXP.UTC ---
Discharge Plan Disposition Patient Disposition: Home, Self-Care Condition: Good Prescriptions Prescriptions: New benzonatate 100 mg capsule 100 mg PO TID PRN (Reason: cough) Qty: 30 0RF fluticasone propionate [Flonase Allergy Relief] 50 mcg/actuation spray,suspension 1 spray intranasal DAILY Qty: 16 0RF Rx Instructions: administer into each nostril Referrals Follow up/Referrals: Shayla Peterson APRN [Primary Care Provider] - See instructions Activity Restrictions/Add. Instructions Additional Instructions/Restrictions: *Monitor Temp, Over the counter Motrin or Tylenol as directed/as needed Tylenol every 4 hours and Motrin every 6 hours (as long as your family doctor has told you that you can take it) for fever or pain. and straight to ER if unable to lower temp less than 101.0 after medication given *Warm salt water gargles may help to soothe the throat *Throat Lozenges? *Warm fluids like tea with honey may help to soothe the throat? *Sleep elevated *Humidifier/Vaporizer *Flonase 2 sprays in each nostril daily but be aware that it may take 2-3 days before you notice improvement Follow up IMMEDIATELY for new or worsening symptoms or no Noticeable improvement over the next 48-72 hours. 911 for difficulty breathing or swallowing You were tested for today for Upper Respiratory Panel with COVID19 your test result should be back in the next 24-48 hours, you may check your results on the [facility] Clinical Impressions Clinical Impression: Viral syndrome Instructions Patient Instructions: Cough, DI for Cough -- Adult, DI for Viral Upper Respiratory Infection -- Adult Discharge ED Provider: Miranda Zavala [facility] [place] General Stated complaint: cough Fever Chills Mode of Arrival: Ambulatory Source of Information: Patient Limitations: No Limitations Time Seen by Provider: 07/31/22 19:32 Description of Symptoms (Recalled from Triage Doc. by RN): PATIENT C/O BODY ACHES, CHILLS AND FEVER HEENT Symptoms (Recalled from RN notes): No Resp Symptoms (Recalled from RN notes): No Skin Symptoms (Recalled from RN notes): No MS Symptoms (Recalled from RN notes): No Functional Status (Recalled from RN notes): WNL History of Present Illness Provider Complaint: Patient states that for the last week he has been having body aches, chills and fever States that he has had a bad cough and seen his PCP 2 days ago and was dx with URI and given Prometh DM but it hasnt helped much State that he is staying up due to the cough so today he came back in again to get checked worried he may have flu or something Related Data Previous Rx's Medication Instructions Recorded benzonatate 100 mg capsule 100 mg PO TID PRN cough #30 caps 07/31/22 fluticasone propionate 50 1 spray intranasal DAILY #16 grams 07/31/22 mcg/actuation nasal spray,suspension (Flonase Allergy Relief) Allergies Allergy/AdvReac Type Severity Reaction Status Date / Time No Known Allergies Allergy Verified 06/09/20 10:57 Worker's Comp Is this a Worker's Comp case?: No PFSH PFS Disclaimer: The information contained in this section may have been updated after the patient was seen, as this information can be updated by other users. Social History (Updated 02/20/22 @ 23:11 by Howard Chamberlain APRN) Smoking Status: Never smoker alcohol intake: never current occupational status: other Travel in the last 8 weeks: None ROS Obtained: Yes All systems reviewed & no additional complaints except as documented and Yes Systems reviewed as appropriate & no additional complaints except as documented Constitutional Constitutional: Reports system reviewed and no additional complaints, except as documented, Reports as per HPI, Reports body ache, Reports chills and Reports fever(s) ENT Ears, Nose, Mouth, and Throat: Reports system reviewed and no additional complaints, except as documented and Reports as per HPI Cardiovascular
[2022-07-31 19:33] VITALS: BP 158/83; PULSE 74; RESP 20; TEMP 37.5; O2SAT 96
== END 2022-07-31 19:55 | disposition home or self-care (01) ==
PROVIDERS: Emergency Provider Nurse Practitioner; PCP Nurse Practitioner Family
DX: B34.9 Viral infection, unspecified (principal); R05.9 Cough, unspecified; R50.9 Fever, unspecified
CPT/HCPCS: 87804; 99212; 99213; C9803; G0463; U0003; U0005

== ENCOUNTER → 2022-08-16 12:58 | Outpatient (CLI) | payer OTHER, SELFPAY ==
--- NOTE | 2022-08-16 13:05 | XR_ITS ---
FINAL REPORT CLINICAL HISTORY: COUGH COMPARISON: 10/29/2021 FINDINGS: Two views of the chest were obtained. The heart size and pulmonary vascularity are within normal limits. The mediastinum is normal. No acute pulmonary abnormality is identified. There is no pneumothorax. The bony thorax is intact. IMPRESSION: No active cardiopulmonary disease. Reviewed, Interpreted and Dictated by Sylvester Doyle III, MD Transcribed by Shayla Oneal Authenticated and [facility]
== END ==
PROVIDERS: PCP Nurse Practitioner Family; Visit Provider Nurse Practitioner Family
DX: R05.9 Cough, unspecified (principal)
CPT/HCPCS: 71046

== ENCOUNTER 2022-08-19 18:40 | Observation (INO) | payer OTHER, SELFPAY ==
--- NOTE | 2022-08-19 | ECG_ITS ---
APPROVED REPORT Exam: Resting ECG HR:108 bpm ECG Measurements Heart Rate 108 AXES AL 150 P 60 QRSd 125 QRS -66 QT 343 T 88 QTc 407 Conclusion SINUS TACHYCARDIA LEFT ANTERIOR FASCICULAR BLOCK [QRS AXIS <= -45, QR IN I, RS IN II] LEFT VENTRICULAR HYPERTROPHY AND ST-T CHANGE [VOLTAGE CRITERIA PLUS ST/T ABNORMALITY] POSSIBLE SEPTAL MYOCARDIAL INFARCTION , OF INDETERMINATE AGE [30 ms Q WAVE IN V1/V2] ABNORMAL ECG UNCONFIRMED REPORT Electronically signed by : Zach Faust MD 08/20/2022 17:28:44
[2022-08-19 18:57] VITALS: BP 124/103; PULSE 109; RESP 16; TEMP 36.7; O2SAT 97; BMI 29.5
--- NOTE | 2022-08-19 18:57 | PC.NURSE ---
covid swab to lab
--- NOTE | 2022-08-19 18:57 | PC.NURSE ---
Dr. Najera at BS
[2022-08-19 19:00] LABS: POC Glucose,Bedside 153 (70-110)
--- NOTE | 2022-08-19 19:03 | XR_ITS ---
PROCEDURE INFORMATION: Exam: XR Chest Exam date and time: 08/19/2022 7:28 PM Age: 51 years old Clinical indication: Cough; Additional info: Cough, AMS TECHNIQUE: Imaging protocol: Radiologic exam of the chest. Views: 1 view. COMPARISON: CR XR CHEST 2V 08/16/2022 1:12 PM FINDINGS: Lungs: Unremarkable. No consolidation. Pleural spaces: Unremarkable. No pleural effusion. No pneumothorax. Heart/Mediastinum: Unremarkable. No cardiomegaly. Bones/joints: Unremarkable. IMPRESSION: No acute findings.
--- NOTE | 2022-08-19 19:03 | CT_ITS ---
PROCEDURE INFORMATION: Exam: CT Head Without Contrast Exam date and time: 08/19/2022 7:20 PM Age: 51 years old Clinical indication: Stroke-like symptoms; Altered mental status/memory loss; Additional info: AMS TECHNIQUE: Imaging protocol: Computed tomography of the head without contrast. Radiation optimization: All CT scans at this facility use at least one of these dose optimization techniques: automated exposure control; mA and/or kV adjustment per patient size (includes targeted exams where dose is matched to clinical indication); or iterative reconstruction. Other technique: STROKE PROTOCOL was implemented. REPORTING DATA: Count of CT and Cardiac NM exams in prior 12 months: This patient has received 0 known CTs and 0 known cardiac nuclear medicine studies in the 12 months prior to the current study. COMPARISON: No relevant prior studies available. FINDINGS: Brain: There is no evidence of infarct, carrizales-white matter differentiation is preserved. There is no hemorrhage or extra-axial collection. There is no mass. Cerebral ventricles: There is no hydrocephalus. 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 No hydrocephalus. Paranasal sinuses: Visualized sinuses are unremarkable. No fluid levels. Mastoid air cells: Visualized mastoid air cells are well aerated. Bones/joints: Unremarkable. No acute fracture. Soft tissues: Unremarkable. IMPRESSION: 1. 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 2. No acute intracranial lesion or injury ASSESSMENT: ASPECTS ([place] Stroke Program Early CT Score) is 10.
--- NOTE | 2022-08-19 19:05 | HMH.EDGENADL ---
Discharge Plan Disposition Patient Disposition: Admitted as Observation Condition: Fair Prescriptions Prescriptions: No Action benzonatate 200 mg capsule 200 mg PO TIDP PRN (Reason: Cough) Label Comments: TAKE 1 CAPSULE BY MOUTH THREE TIMES DAILY FOR 7 DAYS NEEDED metformin 500 mg tablet 500 mg PO DAILY Label Comments: TAKE 1 TABLET BY MOUTH ONCE DAILY cetirizine 10 mg tablet 10 mg PO DAILY Label Comments: TAKE 1 TABLET BY MOUTH ONCE DAILY FOR 30 DAYS fluticasone propionate 50 mcg/actuation spray,suspension 1 spray INTRANASAL DAILY Label Comments: USE 1 SPRAY(S) IN EACH NOSTRIL ONCE DAILY Jardiance 10 mg tablet 10 mg PO DAILY Label Comments: TAKE 1 TABLET BY MOUTH ONCE DAILY vitamin A 3,000 mcg (10,000 unit) Capsule 3,000 mcg PO DAILY Referrals Follow up/Referrals: Shayla Peterson APRN [Primary Care Provider] - See instructions Clinical Impressions Clinical Impression: Encephalopathy, Hyponatremia Discharge ED Provider: Arthur Najera General Adult HPI General Chief complaint: Altered Mental Status Stated complaint: confusion, resp virus on diagnosed on 08/16 Time Seen by Provider: 08/19/22 18:55 History of Present Illness HPI narrative: History obtained from patient and . Chief complaint is altered mental status and generalized weakness that started today. He has been sick for the past 3 weeks. He has had a nonproductive cough. The week before last he had high fevers, but those resolved. He saw his primary care provider last . He was diagnosed with a respiratory virus. He was prescribed an antihistamine but did not start taking it until today. His does not know whether these current symptoms started after that medication was started from before. He did not start the medication until today because he was already taking an ural-sou-jsmpjhi histamine which he has run out of. Denies headache. Denies any pain including neck pain, chest pain, abdominal pain. 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 He is diabetic. states he is not eating or drinking much today. Recent prescriptions are for cetirizine and benzonatate. Related Data Home Medications Medication Instructions Recorded Confirmed benzonatate 200 mg capsule 200 mg PO TIDP PRN Cough 08/19/22 08/19/22 cetirizine 10 mg tablet 10 mg PO DAILY Allergic rhinitis 08/19/22 08/19/22 empagliflozin 10 mg tablet 10 mg PO DAILY Diabetes 08/19/22 08/19/22 (Jardiance) fluticasone propionate 50 1 spray intranasal DAILY Allergic 08/19/22 08/19/22 mcg/actuation nasal rhinitis spray,suspension metformin 500 mg tablet 500 mg PO DAILY Diabetes 08/19/22 08/19/22 vitamin A 3,000 mcg (10,000 unit) 3,000 mcg PO DAILY Supplement 08/19/22 08/19/22 capsule Allergies Allergy/AdvReac Type Severity Reaction Status Date / Time No Known Allergies Allergy Verified 06/09/20 10:57 [facility] Disclaimer: The information contained in this section may have been updated after the patient was seen, as this information can be updated by other users. Social History Smoking Status: Never smoker alcohol intake: never current occupational status: other Travel in the last 8 weeks: None ROS Obtained: Yes Systems reviewed as appropriate & no additional complaints except as documented Constitutional Constitutional: Reports fever(s), Denies headache(s), Reports malaise and Reports weakness ENT Ears, Nose, Mouth, and Throat: Denies headache(s), Denies nasal discharge and Denies sore throat Cardiovascular Cardiovascular: Denies chest pain Respiratory Respiratory: Denies shortness of breath, Reports cough and Reports non-productive cough Gastrointestinal Gastrointestingal: Denies abdominal pain, constipation, diarrhea or vomiting Genitourinary Male Genitourinary: Denies d
[2022-08-19 19:07] LABS: Coronavirus 19, PCR Not Detected (NotDetected); Influenza A, PCR Not Detected (NotDetected); Influenza B, PCR Not Detected (NotDetected)
[2022-08-19 19:11] LABS: Basophils # 0.2 K/mm3 (0-0.2); Basophils % 1.8 % (0.1-2.0); Eosinophils # 0.2 K/mm3 (0.0-0.4); Eosinophils % 1.8 % (0.1-12.0); Hematocrit 48.1 % (42.0-52.0); Hemoglobin 15.9 g/dL (14.1-18.0); Lymphocytes # 2.7 K/mm3 (0.7-4.5); Lymphocytes % 27.9 % (10-50); Mean Corpuscular Hemoglobin 30.5 pg (27.0-31.2); Mean Corpuscular Volume 92.4 fl (80-94); Mean Platelet Volume 7.9 fl (7.4-10.4); Monocytes # 0.6 K/mm3 (0.1-1.0); Neutrophils % 62.5 % (37.0-80.0); Platelet Count 441 K/mm3 (142-424); Red Blood Count 5.21 M/mm3 (4.60-6.20); Red Cell Distribution Width 13.7 % (11.5-17.5); White Blood Count 9.6 K/mm3 (4.8-10.8)
[2022-08-19 19:13] LABS: Chloride 102 mmol/L (98-107)
[2022-08-19 19:14] LABS: Potassium 3.9 mmoL/L (3.5-5.1); Sodium 127 mmol/L (136-145)
--- NOTE | 2022-08-19 19:15 | PC.NURSE ---
Pt gone to RAD via stretcher
[2022-08-19 19:16] LABS: Alanine Aminotransferase 33 U/L (12-78); Alkaline Phosphatase 141 U/L (38-126); Aspartate Amino Transferase 31 U/L (17-59); Bilirubin,Total 0.5 mg/dl (0.2-1.3); Blood Urea Nitrogen 16 mg/dl (9-20); Creatinine Clearance Estimated 140 mL/min (50-200); Estimated Glomerular Filt Rate 88 ml/min (>60); GFR (African American) 107 ML/MIN (>60)
[2022-08-19 19:17] LABS: Albumin Level 4.2 g/dl (3.5-5.0); Albumin/Globulin Ratio 0.9 (1.1-1.8); Anion Gap -2.1 mEq/L (5-15); Calcium 8.5 mg/dl (8.4-10.2); Carbon Dioxide 31 mmol/L (22.0-30.0); Globulin 4.7 g/dL (1.3-3.2); Glucose 152 mg/dl (74-100); Total Protein,Serum 8.9 g/dl (6.3-8.2)
[2022-08-19 19:22] LABS: Ethyl Alcohol < 10 mg/dl (0-10)
--- NOTE | 2022-08-19 19:25 | PC.NURSE ---
Pt back from RAD
[2022-08-19 19:28] LABS: Ammonia < 9 umol/L (9-30)
[2022-08-19 19:30] LABS: Troponin I < 0.01 ng/ml (0.00-0.034)
[2022-08-19 19:31] VITALS: BP 138/81; PULSE 111; RESP 19; O2SAT 92
--- NOTE | 2022-08-19 19:41 | PC.NURSE ---
Dr. Najera s/w FRANCISCO
[2022-08-19 19:48] LABS: C-Reactive Protein 8.7 mg/L (0-4)
--- NOTE | 2022-08-19 19:49 | PC.NURSE ---
Assisted patient to bedside with urinal. Steadily unsteady with x1 assist. Patient had to be directed with each step from standing to using the urinal. This is not his baseline according to spouse at bedside.
[2022-08-19 19:50] LABS: Microscopic, Urine URINE MICROSCOPIC (MICROSCOPIC)
[2022-08-19 19:53] LABS: NT Pro Brain Natriuretic Pep. 52.9 pg/mL (0-125)
[2022-08-19 19:57] LABS: Erythrocyte Sedimentation Rate 11 mm/hr (0-20)
[2022-08-19 19:57] LABS: Appearance,Urine CLEAR (Clear); Bilirubin,Urine Negative (Negative); Blood, Urine Negative (Negative); Color,Urine YELLOW (Yellow); Glucose,Urine (UA) 3+ (Negative); Ketones,Urine Negative (Negative); Leukocyte Esterase,Urine Negative (Negative); Nitrate,Urine Negative (Negative); Protein,Urine Negative (Negative); Urobilinogen,Urine 0.2 EU/dl (0.2)
--- NOTE | 2022-08-19 19:59 | PC.NURSE ---
Dr. Christianne rehman
[2022-08-19 20:00] VITALS: BP 138/81; PULSE 103; RESP 24; O2SAT 95
[2022-08-19 20:01] LABS: Procalcitonin 0.104 ng/mL (0.0-2.0)
--- NOTE | 2022-08-19 20:02 | PC.NURSE ---
Dr. Najera speaking with Dr. Faust
[2022-08-19 20:09] LABS: Barbiturates Screen,Urine Negative ng/ml (<200)
[2022-08-19 20:10] LABS: Amphetamine/Metha Screen,Urine Negative ng/ml (<1000); Benzodiazepines Screen,Urine Negative ng/ml (<200)
[2022-08-19 20:11] LABS: Cannabinoid Screen,Urine Negative ng/ml (<50)
[2022-08-19 20:12] LABS: Cocaine Screen,Urine Negative ng/ml (<300); Methadone Screen,Urine Negative ng/ml (<300)
[2022-08-19 20:13] LABS: Opiate Screen,Urine Negative ng/ml (<300)
[2022-08-19 20:14] LABS: Phencyclidine Screen,Urine Negative ng/ml (<25)
--- NOTE | 2022-08-19 20:24 | PC.NURSE ---
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
[2022-08-19 20:33] VITALS: BP 121/77; PULSE 97; RESP 20; TEMP 36.6; O2SAT 96
[2022-08-19 20:44] LABS: Bacteria,Urine Trace /lpf; Squamous Epithelial Cell,Urine Occasional #/hpf (0-5)
[2022-08-19 20:50] VITALS: BP 135/82; PULSE 101; RESP 18; TEMP 36.5; O2SAT 96; BMI 29.0
[2022-08-19 21:16] LABS: POC Glucose,Bedside 163 (70-110)
[2022-08-19 22:38] VITALS: O2SAT 98
--- NOTE | 2022-08-19 23:21 | PC.NURSE ---
Pt. asked to have his scuds removed. Pt's states she wants the bed alarm off while she is in the room to help. She states she is aware of the reasoning for its use.
--- NOTE | 2022-08-20 03:21 | PC.NURSE ---
DR. Faust text to be made aware pt. hasn't urinated since 21:00 last night. Bladderscan shows 527 ml in bladder.
--- NOTE | 2022-08-20 03:38 | PC.NURSE ---
Pt. urinated 300 ml out.
--- NOTE | 2022-08-20 03:58 | PC.NURSE ---
Pt's stayed the night to help redirect his confusion. He has been up several times to urinate and couldn't. This is documented in my previous note. He seems to be a little better at following some directions this am. No other changes noted.
[2022-08-20 04:00] VITALS: BP 114/62; PULSE 94; RESP 20; TEMP 36.8; O2SAT 90; BMI 29.0
[2022-08-20 05:47] LABS: POC Glucose,Bedside 144 (70-110)
[2022-08-20 06:28] LABS: Anion Gap 10.2 mEq/L (5-15); Blood Urea Nitrogen 13 mg/dl (9-20); Calcium 8.4 mg/dl (8.4-10.2); Carbon Dioxide 26 mmol/L (22.0-30.0); Chloride 104 mmol/L (98-107); Creatinine Clearance Estimated 155 mL/min (50-200); Estimated Glomerular Filt Rate 101 ml/min (>60); GFR (African American) 122 ML/MIN (>60); Glucose 146 mg/dl (74-100); Potassium 4.2 mmoL/L (3.5-5.1); Sodium 136 mmol/L (136-145)
--- NOTE | 2022-08-20 07:10 | HMH.PHAINT1 ---
Pharmacy Intervention Comments: MEDICATION RECONCILIATION COMPLETED ON PATIENT USING EXTERNAL FILL HISTORY FROM PHARMACY. -DWAYNE FERNANDEZ, JOCELYND
[2022-08-20 08:00] VITALS: BP 136/76; PULSE 89; RESP 18; TEMP 35.9; O2SAT 92
--- NOTE | 2022-08-20 08:18 | FL_ITS ---
FINAL REPORT CLINICAL HISTORY: . MS CHANGES 50 SECONDS FLUORO TIME FINDINGS: LUMBAR PUNCTURE AND FLUOROSCOPY HISTORY: Altered mental status ATTENDING PHYSICIAN: Dr. Mccloud PHYSICIAN RIVET BUCKER: Griffin Aragon PA-C PROCEDURE: After informed consent was obtained and timeout procedure performed, the patient was placed in the prone position in the fluoroscopic suite. The L4-L5 level of the lumbar spine was localized under fluoroscopic guidance and marked on the skin appropriately. The patient was then prepped and draped in the usual sterile fashion and the skin was anesthetized with 1% Lidocaine. A lumbar puncture was then performed under direct fluoroscopic guidance at the L4-L5 level using a 20-gauge 3 1/2'' needle. The patient was subsequently rolled into the left lateral decubitus position and opening pressure was measured at 9 cm of water. Approximately 12 ml of clear cerebrospinal fluid was removed and sent to the laboratory for studies. The patient tolerated the procedure well and there were no immediate complications. IMPRESSION: Technically successful lumbar puncture as above. Reviewed, Interpreted and Dictated by Beltran Mccloud MD Transcribed by SYDNEE West Authenticated and [facility]
--- NOTE | 2022-08-20 08:22 | EXP.HP ---
History of Present Illness *Admission Date: 08/19/22 *Reason for visit:: Mental status changes *History of present illness: 51-year-old male with type 2 diabetes, Usher syndrome with legal blindness and history of recent upper respiratory infection presented to the emergency department yesterday with a 24-hour history of increasing confusion and diminished activity levels. His notes that he did been in normal state of somewhat compromised health until a couple of days ago when she noticed that he was not talking much. They went to a restaurant for filomena yesterday and she had to guide him about the restaurant because he simply did not know where to walk, above and beyond his normal visual acuity problems. 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 She is noticed no seizure activity, facial asymmetry, arm or leg asymmetry, but he was unable to answer basic questions and she brought him to the emergency department. In the ER work-up revealed mild hyponatremia but really otherwise work-up was negative except for the fact that he was confused and disoriented. Admitted to hospital for further evaluation. reports that he had a cough for a couple of weeks, has been treated with supportive care including promethazine with codeine cough syrup, Tessalon Perles, Zyrtec, and his cough is somewhat better, the Zyrtec is the newest medicine that was started a couple of days ago. He also began Jardiance therapy on August 16 for uncontrolled diabetes, this was added to his metformin. [facility] Disclaimer: The information contained in this section may have been updated after the patient was seen, as this information can be updated by other users. Social History (Updated 08/19/22 @ 21:33 by David Kemp RN) Smoking Status: Never smoker alcohol intake: never current occupational status: other Travel in the last 8 weeks: None Review of Systems Review of Systems Review of systems:: unable to obtain Constitutional Constitutional: Denies headache(s) and Reports weakness ENT Ears, Nose, Mouth, and Throat: Denies headache(s) *Musculoskeletal Musculoskeletal: Denies numbness *Neurologic Neurologic: Reports confusion, Denies headache(s), Denies numbness and Reports weakness Psychiatric Psychiatric: Reports confusion Meds Home Medications and Allergies Home Medications Medication Instructions Recorded Confirmed Type benzonatate 200 mg capsule 200 mg PO TIDP PRN Cough 08/19/22 08/19/22 History cetirizine 10 mg tablet 10 mg PO DAILY Allergy symptoms 08/19/22 08/19/22 History empagliflozin 10 mg tablet 10 mg PO DAILY Diabetes 08/19/22 08/19/22 History (Jardiance) fluticasone propionate 50 1 spray intranasal DAILY Allergy 08/19/22 08/19/22 History mcg/actuation nasal symptoms spray,suspension metformin 500 mg tablet 500 mg PO DAILY Diabetes 08/19/22 08/19/22 History vitamin A 3,000 mcg (10,000 unit) 3,000 mcg PO DAILY Supplement 08/19/22 08/19/22 History capsule promethazine-DM 6.25 mg-15 mg/5 mL 5 ml PO Q6HP PRN Cough 08/20/22 08/20/22 History oral syrup New Prescriptions to Start Prescriptions: Allergies Allergy/AdvReac Type Severity Reaction Status Date / Time No Known Allergies Allergy Verified 06/09/20 10:57 Exam Data for Last 24 hours Vital signs and Labs for Last 24 Hours: Temp Pulse Resp BP Pulse Ox 96.7 F L 89 18 136/76 92 L 08/20/22 08:00 08/20/22 08:00 08/20/22 08:00 08/20/22 08:00 08/20/22 08:00 Laboratory Results - last 24 hr 08/19/22 18:52: POC Glucose 153 H 08/19/22 18:54: SARS-CoV-2 (PCR) Not detected, Influenza A Untype (PCR) Not detected, Influenza Type B (PCR) Not detected 08/19/22 18:54: WBC 9.6, RBC 5.21, Hgb 15.9, Hct 48.1, MCV 92.4, MCH 30.5, MCHC 33.0, RDW 13.7, Plt Count 441 H, MPV 7.9, Neut % (Auto) 62.5, Lymph % (A
[2022-08-20 09:09] LABS: Vitamin B12 385 pg/mL (239-931)
[2022-08-20 09:40] LABS: Glucose,CSF 78 mg/dl (40-70)
--- NOTE | 2022-08-20 10:01 | MR_ITS ---
FINAL REPORT CLINICAL HISTORY: MS CHANGES COMPARISON: CT performed 08/19/2022 FINDINGS: Multi planar MR imaging was obtained through the brain without contrast. Again seen is ermelinda cisterna magna. The midline structures appear intact. There is no evidence of Chiari malformation. On T2 and flair axial images the brain parenchyma is homogeneous. On diffusion-weighted images there is no evidence of restricted diffusion. The visualized paranasal sinuses demonstrate normal signal voids. The seventh and eighth nerve root complexes are intact. IMPRESSION: No acute intracranial abnormality. Reviewed, Interpreted and Dictated by Beltran Mccloud MD Transcribed by Wendy Rod Authenticated and [facility]
[2022-08-20 11:56] LABS: Appearance,CSF Clear (Clear); Volume,CSF 3 mL
[2022-08-20 11:57] LABS: Red Blood Cell,CSF 391 cells/uL (0); White Blood Cell,CSF 7 cells/uL (0-5)
[2022-08-20 11:58] LABS: Mononuclear WBCs,CSF 3 %
[2022-08-20 11:59] LABS: Polynuclear WBCs,CSF 1 %
[2022-08-20 12:02] LABS: Appearance,CSF Clear (Clear); Red Blood Cell,CSF 225 cells/uL (0); Volume,CSF 4 mL; White Blood Cell,CSF 8 cells/uL (0-5)
[2022-08-20 12:05] LABS: Mononuclear WBCs,CSF 0 %; Polynuclear WBCs,CSF 0 %
[2022-08-20 12:31] LABS: POC Glucose,Bedside 136 (70-110)
[2022-08-20 14:41] VITALS: BMI 28.8
[2022-08-20 15:43] VITALS: BP 126/85; PULSE 103; RESP 20; TEMP 37.7; O2SAT 92
--- NOTE | 2022-08-20 18:27 | PC.NURSE ---
Attempted to in and out cath twice but unsuccessful as patient is confused and uncooperative. Dr. Faust notified. UA obtained after patient able to clean in clean urinal and sent to lab. VS stable, patient remained on room air. Patient still confused to place, time and situation but alert. Lung sounds clear, no other changes noted.
[2022-08-20 20:00] VITALS: BP 137/86; PULSE 108; RESP 18; TEMP 36.4; O2SAT 93
[2022-08-20 21:53] LABS: POC Glucose,Bedside 144 (70-110)
[2022-08-21 04:00] VITALS: BP 133/76; PULSE 100; RESP 18; TEMP 36.4; O2SAT 94; BMI 29.9
--- NOTE | 2022-08-21 05:01 | PC.NURSE ---
The patient is still confused and disoriented with minimal verbal communication. He is able to ambulate to the bathroom with x1 assist. He is on room air and vital signs have remained stable throughout the shift. He is still getting normal saline infusion to correct hyponatremia. He is on a diabetic diet but feeding remains difficult due to his altered mental status.
[2022-08-21 06:41] LABS: Basophils # 0.2 K/mm3 (0-0.2); Basophils % 1.5 % (0.1-2.0); Eosinophils # 0.1 K/mm3 (0.0-0.4); Eosinophils % 0.9 % (0.1-12.0); Hematocrit 48.2 % (42.0-52.0); Hemoglobin 15.2 g/dL (14.1-18.0); Lymphocytes # 2.2 K/mm3 (0.7-4.5); Lymphocytes % 22.3 % (10-50); Mean Corpuscular HGB Conc 31.5 g/dL (31.8-35.4); Mean Corpuscular Hemoglobin 30.3 pg (27.0-31.2); Mean Platelet Volume 7.9 fl (7.4-10.4); Monocytes # 0.7 K/mm3 (0.1-1.0); Monocytes % 6.6 % (1.7-9.3); Neutrophils # 6.9 K/mm3 (1.8-7.8); Neutrophils % 68.8 % (37.0-80.0); Platelet Count 369 K/mm3 (142-424); Red Blood Count 5.02 M/mm3 (4.60-6.20); Red Cell Distribution Width 13.6 % (11.5-17.5); White Blood Count 10.1 K/mm3 (4.8-10.8)
[2022-08-21 06:49] LABS: Anion Gap 11.9 mEq/L (5-15); Blood Urea Nitrogen 14 mg/dl (9-20); Calcium 8.4 mg/dl (8.4-10.2); Carbon Dioxide 25 mmol/L (22.0-30.0); Chloride 104 mmol/L (98-107); Creatinine Clearance Estimated 160 mL/min (50-200); Estimated Glomerular Filt Rate 101 ml/min (>60); GFR (African American) 122 ML/MIN (>60); Glucose 162 mg/dl (74-100); Potassium 3.9 mmoL/L (3.5-5.1); Sodium 137 mmol/L (136-145)
[2022-08-21 07:44] LABS: POC Glucose,Bedside 149 (70-110)
--- NOTE | 2022-08-21 07:45 | EXP.DC.SUM ---
General Admission date:: 08/19/22 Discharge date: 08/21/22 HPI HPI HPI: 51-year-old male with type 2 diabetes, Usher syndrome with legal blindness and history of recent upper respiratory infection presented to the emergency department yesterday with a 24-hour history of increasing confusion and diminished activity levels. His notes that he did been in normal state of somewhat compromised health until a couple of days ago when she noticed that he was not talking much. They went to a restaurant for filomena yesterday and she had to guide him about the restaurant because he simply did not know where to walk, above and beyond his normal visual acuity problems. 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 She is noticed no seizure activity, facial asymmetry, arm or leg asymmetry, but he was unable to answer basic questions and she brought him to the emergency department. In the ER work-up revealed mild hyponatremia but really otherwise work-up was negative except for the fact that he was confused and disoriented. Admitted to hospital for further evaluation. reports that he had a cough for a couple of weeks, has been treated with supportive care including promethazine with codeine cough syrup, Tessalon Perles, Zyrtec, and his cough is somewhat better, the Zyrtec is the newest medicine that was started a couple of days ago. He also began Jardiance therapy on August 16 for uncontrolled diabetes, this was added to his metformin. Hospital Course Hospital Course Hospital Course: Patient was admitted, confusion noted. Extensive work-up was undertaken including a multiplicity of lab testing, CSF testing and MRI of brain. These were nondiagnostic. Some cultures are still pending, but he was noted to have a mild hypothyroidism. He was also noted to have very mild hyponatremia. This was corrected with saline infusions. He had had a new medication, several doses of Benadryl and some Zyrtec at home and this was discontinued. The patient improved as noted by nursing staff and per my exam. This morning he is almost back to his baseline. Plan will be get him home so he is in a more comfortable environment and so his visual and hearing impairments will not be as upsetting to him. We will follow him up in 5 days in the office. My working diagnosis is that the antihistamines caused a significant mental status change on top of his mild hypothyroidism. We will start Synthroid 50 mcg daily. His has already cleared out all antihistamines in the house and I am gone over with her what constitutes an antihistamine and that if he has cold symptoms he can take plain Mucinex or Robitussin without other ingredients. I will also asked them to hold Jardiance-although I do not think this was an offending agent-it certainly was new and we can reevaluate this in the office. Exam Data for Last 24 hours Vital signs and Labs for Last 24 Hours: Temp Pulse Resp BP Pulse Ox 97.6 F 100 H 18 133/76 94 L 08/21/22 04:00 08/21/22 04:00 08/21/22 04:00 08/21/22 04:00 08/21/22 04:00 Laboratory Results - last 24 hr 08/20/22 05:52: Vitamin B12 385, TSH 12.80 H 08/20/22 09:09: CSF Volume 3, CSF Appearance Clear, CSF WBC 7 H, CSF RBC 391, CSF Mononuclear WBCs % 3, CSF Polynuclear WBCs % 1 08/20/22 09:09: CSF Volume 4, CSF Appearance Clear, CSF WBC 8 H, CSF RBC 225, CSF Mononuclear WBCs % 0, CSF Polynuclear WBCs % 0 08/20/22 09:09: CSF Glucose 78 H, CSF Total Protein 88.0 H 08/20/22 11:29: POC Glucose 136 H 08/20/22 21:09: POC Glucose 144 H 08/21/22 06:10: WBC 10.1, RBC 5.02, Hgb 15.2, Hct 48.2, MCV 96.0 H, MCH 30.3, MCHC 31.5 L, RDW 13.6, Plt Count 369, MPV 7.9, Neut % (Auto) 68.8, Lymph % (Auto) 22.3, [place] % (Auto) 6.6, Eos % (Auto) 0.9, Baso % (Auto) 1.5, Neut # (Auto) 6.9, Lymph # (Auto) 2.2, [place] # (Auto) 0.7, Eos # (Au
--- NOTE | 2022-08-21 08:43 | PC.NURSE ---
PT D/C THIS MORNING, LEFT FLOOR WITH AND STAFF VIA W/C AT 0823. NO C/O OR QUESTIONS NOTED AFTER D/C INSTRUCTIONS PROVIDED.
[2022-08-21 16:44] LABS: Treponema pallidum Ab (FTA-ABS Non Reactive (Non Reactive)
--- NOTE | 2022-08-22 13:09 | CARE MANAGER ---
Spoke with patient for post-discharge phone interview. MD told patient to not use antihistamines, gave patient some promthazine DM at home, encouraged her to use Mucinex per MD recommendation. She verbalized understanding of the same.
[2022-08-22 14:15] LABS: CAP Mandated Reflex to Culture Not Indicated (.); Cryptococcus Antigen, CSF Negative (Negative)
[2022-08-24 07:55] LABS: Enterovirus,CSF PCR Negative (Negative)
[2022-08-28 10:17] LABS: Vitamin A 37.5 ug/dL (20.1-62.0)
== END 2022-08-21 08:23 | disposition home or self-care (01) ==
LOC: ER 20:07 → 2ND 20:26
PROVIDERS: Admitting Provider Internal Medicine Adolescent Medicine; Emergency Provider Emergency Medicine; PCP Nurse Practitioner Family; Visit Provider Internal Medicine Adolescent Medicine
DX: G93.40 Encephalopathy, unspecified (principal); E87.1 Hypo-osmolality and hyponatremia; E11.65 Type 2 diabetes mellitus with hyperglycemia; H35.52 Pigmentary retinal dystrophy; Z79.84 Long term (current) use of oral hypoglycemic drugs; E03.9 Hypothyroidism, unspecified; Z79.899 Other long term (current) drug therapy; L10.4 Pemphigus erythematosus
CPT/HCPCS: 36415; 62270; 70450; 70551; 71045; 80048; 80053; 80305; 81001; 82140; 82607; 82945; 82962; 83880; 84145; 84155; 84443; 84484; 84590; 85025; 85651; 86140; 86780; 87040; 87070; 87086; 87205; 87252; 87498; 87899; 89051; 93005; 99285; C9803; G0378; U0003; U0005

== ENCOUNTER → 2022-12-27 12:27 | Outpatient (CLI) | payer OTHER, SELFPAY | PROVIDERS: PCP Internal Medicine Adolescent Medicine; Visit Provider Nurse Practitioner Family | DX: R94.6 Abnormal results of thyroid function studies (principal) ==

== ENCOUNTER → 2022-12-28 08:47 | Outpatient (CLI) | payer OTHER, SELFPAY ==
--- NOTE | 2022-12-28 09:12 | MR_ITS ---
FINAL REPORT CLINICAL HISTORY: ABNORMAL LAB RESULTS hyperthyroid 22ml prohance COMPARISON: 08/20/2022 FINDINGS: MRI BRAIN WITHOUT AND WITH CONTRAST, ATTENTION PITUITARY FOSSA TECHNIQUE: Multiplanar imaging was performed of the brain with and without Gadolinium infusion. Study included high-resolution imaging of the sella, without and with contrast administration. Diffusion sequences show no signal abnormalities to indicate acute infarct or other process. Imaging of the pituitary fossa shows normal size of the pituitary gland. No abnormal signal changes are seen. There is no abnormal enhancement. Pituitary stalk is essentially midline. Optic chiasm is unremarkable. Visualized brain parenchyma displays normal signal without evidence of mass, hemorrhage or edema. No extra-axial abnormal findings are seen. The ventricles and cisterns appear normal. No abnormal enhancing lesions are identified on the post infusion images. IMPRESSION: Unremarkable MRI with special attention to the pituitary gland without lesion Reviewed, Interpreted and Dictated by Mahad Valverde MD Transcribed by Winter Calzada Authenticated and [facility]
[2022-12-28 09:22] LABS: Blood Urea Nitrogen 20 mg/dl (9-20); Estimated Glomerular Filt Rate 78 ml/min (>60); GFR (African American) 94 ML/MIN (>60)
[2022-12-28 10:16] LABS: Triiodothryronine (T3) Uptake 40 % (23.5-40.5)
[2022-12-28 10:53] LABS: Free Thyroxine Index 2.6 ug/dL (5.93-13.13); T4 (Thyroxine) 6.6 ug/dl (5.53-11.0)
[2022-12-29 08:16] LABS: Prolactin 12.2 ng/mL (4.0-15.2); Thyroid Peroxidase Antibodies >600 IU/mL (0-34)
[2022-12-29 13:09] LABS: Adrenocorticotropic Hormone 14.1 pg/mL (7.2-63.3)
[2022-12-31 16:06] LABS: Thyroglobulin Level 18.7 IU/mL (0.0-0.9)
== END ==
PROVIDERS: PCP Nurse Practitioner Family; Visit Provider Nurse Practitioner Family
DX: R56.9 Unspecified convulsions (principal); R94.6 Abnormal results of thyroid function studies
CPT/HCPCS: 36415; 70553; 82024; 82533; 82565; 84146; 84436; 84443; 84479; 84520; 86376; 86800; A9576

== ENCOUNTER 2023-09-11 16:10 | Outpatient (CLI) | payer OTHER, SELFPAY ==
--- NOTE | 2023-09-11 16:15 | XR_ITS ---
FINAL REPORT CLINICAL HISTORY: Right shoulder pain COMPARISON: None FINDINGS: RIGHT SHOULDER: 3 views of the right shoulder were obtained. There is no acute fracture or dislocation. There is mild AC joint degenerative change. There is a 7 mm loose body superior to the AC joint. There is no soft tissue abnormality. IMPRESSION: No acute bony abnormality. Reviewed, Interpreted and Dictated by Sylvester Doyle III, MD Transcribed by Shayla Oneal Authenticated and [facility]
--- NOTE | 2023-09-11 16:15 | XR_ITS ---
FINAL REPORT CLINICAL HISTORY: Right upper arm pain COMPARISON: None FINDINGS: Two views of the right humerus were obtained. There is no acute fracture or dislocation. The joint spaces are well preserved. There is no acute soft tissue abnormality. IMPRESSION: No acute abnormality identified. Reviewed, Interpreted and Dictated by Sylvester Doyle III, MD Transcribed by Shayla Oneal Authenticated and . [facility]
== END 2023-09-11 23:59 | disposition home or self-care (01) ==
LOC: RAD 16:11
PROVIDERS: PCP Internal Medicine Adolescent Medicine; Visit Provider Internal Medicine Adolescent Medicine
DX: M25.511 Pain in right shoulder (principal)
CPT/HCPCS: 73030; 73060

== ENCOUNTER 2023-10-23 09:51 | Emergency (ER) | payer OTHER, SELFPAY ==
[2023-10-23 10:43] VITALS: BP 0/0; PULSE 0; RESP 0; TEMP -17.7; TEMP 0
== END 2023-10-23 10:43 | disposition left against medical advice (07) ==
PROVIDERS: Emergency Provider Nurse Practitioner Family; PCP Internal Medicine Adolescent Medicine
DX: Z53.21 Procedure and treatment not carried out due to patient leaving prior to being seen by health care provider (principal)

== ENCOUNTER 2023-11-08 16:03 | Outpatient (CLI) | payer OTHER, SELFPAY ==
--- NOTE | 2023-11-08 16:08 | MR_ITS ---
FINAL REPORT CLINICAL HISTORY: ARTHRITIS OF RIGHT SHOULDER REGION. FELL ON SHOULDER 3 WKS AGO. LIMITED ROM FINDINGS: Multiplanar MR imaging of the right shoulder was performed without contrast.There is motion artifact on many sequences. There is an intrasubstance tear of the distal supraspinatus tendon measuring less than 50%. No full-thickness tendon tear identified. There is mild AC joint arthrosis with a small amount of fluid in the subacromial/subdeltoid bursa. There is abnormal signal in the superior labrum worrisome for SLAP tear. The long head of the biceps tendon is intact. There is no evidence of fracture, bone bruise or marrow edema. A small glenohumeral joint effusion is identified. The musculature is intact. There is no evidence of soft tissue mass. IMPRESSION: Intrasubstance tear of the distal supraspinatus tendon measuring less than 50%. No full-thickness tendon tear identified. Mild AC joint arthrosis with subacromial/subdeltoid bursitis. Abnormal signal in the superior labrum worrisome for SLAP tear. Reviewed, Interpreted and Dictated by Sylvester Doyle III, MD Transcribed by Wendy Rod Authenticated and [facility]
== END 2023-11-08 23:59 | disposition home or self-care (01) ==
LOC: RAD 16:04
PROVIDERS: PCP Internal Medicine Adolescent Medicine; Visit Provider Internal Medicine Adolescent Medicine
DX: M25.511 Pain in right shoulder (principal); M24.011 Loose body in right shoulder; M19.011 Primary osteoarthritis, right shoulder
CPT/HCPCS: 73221

== ENCOUNTER 2024-02-20 16:00 | Outpatient (RCR) | payer OTHER, SELFPAY | END 2024-02-20 16:05 | disposition home or self-care (01) | LOC: PT 16:00 | PROVIDERS: Visit Provider Orthopaedic Surgery | DX: M75.01 Adhesive capsulitis of right shoulder (principal) | CPT/HCPCS: 97014; 97016; 97110; 97140; 97163; 97164; G0283 ==

== ENCOUNTER 2024-03-20 07:00 | Outpatient (CLI) | payer OTHER, SELFPAY ==
[2024-03-20 07:51] LABS: Hemoglobin A1C 7.7 % (4.0-6.0)
[2024-03-20 08:09] LABS: Albumin Level 4.5 g/dl (3.5-5.0); Chloride 100 mmol/L (98-107); Sodium 139 mmol/L (136-145)
[2024-03-20 08:10] LABS: Potassium 4.4 mmoL/L (3.5-5.1)
[2024-03-20 08:12] LABS: Alanine Aminotransferase 42 U/L (12-78); Albumin/Globulin Ratio 1.4 (1.1-1.8); Alkaline Phosphatase 129 U/L (38-126); Anion Gap 12.4 mEq/L (5-15); Aspartate Amino Transferase 28 U/L (17-59); Bilirubin,Total 0.7 mg/dl (0.2-1.3); Blood Urea Nitrogen 13 mg/dl (9-20); Calcium 9.6 mg/dl (8.4-10.2); Carbon Dioxide 31 mmol/L (22.0-30.0); Cholesterol 112 mg/dl (140-200); Estimated Glomerular Filt Rate 78 ml/min (>60); GFR (African American) 94 ML/MIN (>60); Globulin 3.3 g/dL (1.3-3.2); Glucose 188 mg/dl (74-100); Total Protein,Serum 7.8 g/dl (6.3-8.2); Triglycerides 217 mg/dl (30-150); VLDL Cholesterol 43 mg/dL (0-40)
[2024-03-20 08:13] LABS: Chol/HDL Ratio 5.6 (1-3.5); HDL Cholesterol 20 mg/dl (40-60)
[2024-03-20 08:24] LABS: Direct LDL Cholesterol 60.61 mg/dL (100-129)
[2024-03-20 08:43] LABS: Thyroid Stimulating Hormone 4.82 uIU/mL (0.465-4.68)
== END 2024-03-20 23:59 | disposition home or self-care (01) ==
LOC: LAB 07:04
PROVIDERS: PCP Nurse Practitioner Family; Visit Provider Nurse Practitioner Family
DX: E03.9 Hypothyroidism, unspecified (principal); E06.3 Autoimmune thyroiditis; E11.9 Type 2 diabetes mellitus without complications; E78.2 Mixed hyperlipidemia; Z79.84 Long term (current) use of oral hypoglycemic drugs
CPT/HCPCS: 36415; 80053; 80061; 83036; 84443

== ENCOUNTER 2024-09-18 09:31 | Outpatient (CLI) | payer MEDICARE, SELFPAY ==
--- OUTSIDE RECORDS SUMMARY | 2024-09-18 09:34 | XMS_ITS ---
Care Plan - [facility], [facility] Created on: September 18, 2024 Lai Caballero : 1970 Sex: Male Author Organization [facility] , [facility] Address [address] [place] [id number] Phone Care Team Providers Care Asset Protection Lead Name Role Phone Chantal MONTES, Bulmaro Coughlin Unavailable [phone]
--- OUTSIDE RECORDS SUMMARY | 2024-09-18 09:34 | XMS_ITS ---
Author Organization [facility] , [facility] Address [address] [place] [id number] Phone Care Team Providers Care Weekend Caregiver Name Role Phone Chantal MONTES, Bulmaro Coughlin Unavailable [phone] Problems Includes: Active, inactive, and resolved Problems All Visits Onset Date Resolved Date Provider Condition S tatus Joint Pain, Localized in the Right Shoulder 12/16/2023 Bulmaro rendon MD Active Last Documented On 4 1:52PM ; [facility] Plan of Treatment Instructions to patient Lose weight Last Documented On 4 8:26AM ; [facility] Lose weight Last Documented On 4 2:24PM ; [facility] Assessments Includes: Assessments for all patient encounters Findings Encounter Date Overweight Follow Up with Bulmaro agustin MD 02/22/2024 Last Documented On 4 1:53PM ; [facility] Overweight Physician Specified with Bulmaro Cornejo MD 12/16/2023 Last Documented On 4 1:38PM ; [facility] Instructions Includes: Instructions for all patient encounters Instructions to patient Lose weight Last Documented On 4 8:26AM ; [facility] Lose weight Last Documented On 4 2:24PM ; [facility] Medical Equipment - Implanted Devices Includes: Current and historical Devices No Medical Equipment Recorded Medications Includes: Current and historical Medications Current Medications (continue as prescribed) Rosuvastatin Calcium 10 MG O ral Tablet 12/13/2023 Provider: Shayla tan APRN Diagnosis: Last Documented On 4 1:53PM By Erin Donnelly ; [facility] metFORMIN HCl 500 MG Oral Tablet 12/09/2023 Provider : Shayla Elli Kristen WHISTLE [place]UNK Diagnosis: Last Documented On 4 1:53PM By Erin Donnelly ; [facility] hydrOXYzine HCl 25 MG Oral Tablet 12/01/2023 Provide r: Shayla Peterson WH[place]UNK Diagnosis: Last Documented On 4 1:53PM By Erin Donnelly ; [facility] FreeStyle Lite Test In Vitro Strip 11/24/2023 Provid er: Shayla Peterson ADI Diagnosis: Last Documented On 4 1:53PM By Erin Donnelly ; [facility] Levothyroxine Sodium 175 MCG Oral Tablet 11/17/2023 Provider: LEBRON ESTEVES MD (E) Diagnosis: Last Documented On 4 1:53PM By Erin Donnelly ; [facility] Sertraline HCl 50 MG Oral Tablet 11/10/2023 Provider : Shayla Peterson APRN Diagnosis: Last Documented On 4 1:53PM By Erin Donnelly ; [facility] Cetirizine HCl 10 MG Oral Tablet 11/06/2023 Provider : Diagnosis: Last Documented On 4 1:53PM By Erin Donnelly ; [facility] Past Medications on file Cetirizine HCl 10 MG Oral Tablet 12/06/2023 - 12/16/19 Provider: Diagnosis: Last Documented On 4 1:53PM By Erin Donnelly ; [facility] Sertraline HCl 50 MG Oral Tablet 12/06/2023 - 12/16/2023 Provider: Shayla cash WHISTLE [place]UNK Diagnosis: Last Documented On 4 1:53PM By Erin Donnelly ; [facility] Medications Administered Includes: Administered Medications in patient's chart No Administered Medications Recorded Vital Signs Includes: Vital Signs from 09/19/2023 through 09/18/2024 Vital Name 02/22/2024 08:31A 12/16/2023 02: 10P Height (in) 72 72 Weight (lb) 250 240 Body Mass Index 33.9 32.5 Body Surface Area 2.3 2.3 Note: ab kld Last Documented: On 02/22/2024 8:31AM ; [facility], [facility] On 12/16/2023 2:10PM ; [facility], [facility] Results Includes: Results from 09/19/2023 through 09/18/2024 No Results Recorded For Specified Dates History of Present Illness History of Present Illness not supported for this document type No History of Present Illness Recorded Social History Description Last Updated Alcohol use 12/16/2023 Last Documented On 4 1:38PM ; [facility], [facility] Caffeine use 12/16/2023 Last Documented On 4 1:38PM ; [facility] Not a current smoker. 12/16/2023 Last Documented On 4 1:38PM ; [facility] Not exercising regularly 12/16/2023 Last Documented On 4 1:38PM ; [facility] Not using drugs 12/16/2023 Last Documented On 4 1:38PM ; [facility], [facility] Recent change in diet low sugar/carb Last Documented On 4 1:38PM ; [facility], [facility] Smoking Status Unknown Procedures and Surgical History Includes: Procedures from 09/19/2023 through 09/18/2024 Procedures Code Diagnosis Performing Provider Service Location Service Date DRAIN/INJECT, JOINT/BURSA (RIGHT) Adhesive capsulitis of right shoulder Bulmaro Cornejo MD [facility] 12/16/2023 Last Documented On 4 10:49AM ; [facility] Triamcinolone/Kenalog, 10mg per cc [id number] Adhesive capsulitis of right shoulder Bulmaro Cornejo MD [facility] 12/16/2023 Last Documented On 4 10:49AM ; [facility] Surgical History Last Updated History of hernia repair 12/16/2023 Last Documented On 4 1:38PM ; [facility], [facility] Medical History Includes: Medical History in patient's chart Description Last Updated History of depression 12/16/2023 Last Documented On 4 1:38PM ; [facility], [facility] History of diabetes mellitus 12/16/2023 Last Documented On 4 1:38PM ; [facility] History of Heartburn / Acid Reflux 12/15 Last Documented On 4 1:38PM ; [facility] History of Thyroid Disease 12/16/2023 Last Documented On 4 1:38PM ; [facility], [facility] Family History Includes: Family History in patient's chart Description Last Updated Diabetes mellitus 12/16/2023 Last Documented On 4 1:38PM ; [facility] Family history of cancer 12/16/2023 Last Documented On 4 1:38PM ; [facility] Review of Systems Review of Systems not supported for this document type No Review of Systems Recorded Mental Status Description No anxiety Functional Status No Functional Status Recorded Physical Exam Physical Exam not supported for this document type No Physical Exam Recorded Allergies Includes: Active, inactive, and resolved Allergies No Known Allergies Encounters Includes: Encounters from 09/19/2023 through 09/18/2024 Encounter Provider Location Date Check-In Time Check-Out Time Diagnosis Follow Up Bulmaro Cornejo MD [facility] 02/22/20 24 8:26AM 8:39AM Overweight Physician Specified Bulmaro Cornejo MD [facility] 12/16/19 24 1:50PM 2:00PM Overweight Insurance Includes: Active Insurance Policies Plan Name Member ID Group # Subscriber Relationship Effect anabel Dates 1 - [facility] [id number] Lai Caballero Self Clinical Notes Includes: Signed Clinical Notes starting from 05/17/2022 * Progress note Date Encounter Last Documented by 02/22/2024 Follow Up Last documented on 02/26/2024; 1:53 PM, Bulmaro Cornejo MD; [facility] Active Problems & Conditions - Joint Pain, Localized in the Right Shoulder Chief Complaint The Chief Complaint is: Right shoulder pain. Referred Here Referred by Dr. Theodore. History of Present Illness Lai Caballero is a 53 year old male. - Symptoms catching. - Allergy list reviewed - Problem list reviewed - Medication list reviewed - Previous history of new onset pain 10/2023 Injury is not work related or an automotive accident - Sharp pain Symptoms - Patient pain level from 1-10: 8 - Yes, previous treatment. Dr. Faust - - Review of medications documented Patient is here for follow-up of his adhesive capsulitis. He had injection about 2 months ago. He states he is markedly better. His sugars have been improving. With his initial diagnosis he says his sugar, A1c was up in the 11-11.5 range. Is now into the high 80s. He knows he still has significant work to do to improve this. His interval follow-up with his corporate services manager has actually lengthened secondary to this some of his compliance that is ongoing. Current Medication - Cetirizine HCl 10 MG Oral Tablet 30 days, 0 refills - FreeStyle Lite Test In Vitro Strip 50 days, 0 refills - hydrOXYzine HCl 25 MG Oral Tablet 10 days, 0 refills - Levothyroxine Sodium 175 MCG Oral Tablet 30 days, 0 refills - metFORMIN HCl 500 MG Oral Tablet 30 days, 0 refills - Rosuvastatin Calcium 10 MG Oral Tablet 30 days, 0 refills - Sertraline HCl 50 MG Oral Tablet 30 days, 0 refills Past Medical/Surgical History Diagnoses: Heartburn / Acid Reflux Thyroid Disease. Diabetes mellitus. Depression Surgical: - Hernia repair Social History Not a current smoker. Current diet: Recent change in diet low sugar/carb. Caffeine use: Caffeine use. Alcohol: Alcohol use. Drug Use: Not using drugs. Habits: Not exercising regularly. Allergies - No Known Allergies Family History Cancer Diabetes mellitus Review Of Systems Systemic: Not feeling tired, no recent weight loss, and no recent weight gain. Head: No headache and no sinus pain. Eyes: Vision problems. No Cataracts. Glasses/Contacts. No Glaucoma. Otolaryngeal: Hearing loss. No tinnitus. Cardiovascular: No chest pain or discomfort, no palpitations, no Hypertension, and no High Cholesterol. Pulmonary: No daytime asthma symptoms and no chronic cough. No wheezing. Gastrointestinal: No heartburn and no abdominal pain. No Indigestion, no Peptic Ulcer, no GI Stomach Bleed, no Ulcers, and no Acid Reflux. Endocrine: No hot flashes and no muscle weakness. Diabetes. No Hypothyroid. Hyperthyroid. Hematologic: No easy bleeding, no tendency for easy bruising, and no Anemia. Musculoskeletal: No Arthritis and no lower back pain. No soft tissue swelling. Pain localized to one or more joints. Neurological: No dizziness, no convulsions, and no numbness. Psychological: No anxiety and no emotional lability. Depression. No insomnia. Not crying for no reason. Skin: No dry skin. No Ulcers, no Scars, and no rash. Allergic and Immunologic: No complaint of seasonal allergic reaction. Physical Findings - Vitals taken 02/22/2024 08:31 am ab Height 72 in Weight 250 lbs Body Mass Index 33.9 kg/m2 Body Surface Area 2.3 m2 Alert and oriented ? - 3 mood and affect are appropriate. Skin over the shoulder is intact. Active and passive forward elevation are limited. Active and passive external rotation are limited active and passive internal rotation are limited- however markedly improved improved compared to previous. Strength intact to supra and infraspinatus. Subscap testing limited secondary to loss of internal rotation. Fingers are warm and well perfused. Assessment - Overweight Primary idiopathic adhesive capsulitis in a 53-year-old gentleman with concomitant diabetes who is improving his sugar control Previous Tests Imaging: X-Ray: An X-ray was performed. CT Scan: CT scan. Counseling/Education - Tobacco non-user - Use of tobacco assessment performed - Lose weight Plan Plan at this point for him to continue with home-based stretching protocol. I will continue to work on his sugars. I will see him back as needed Notes This dictation was done with voice recognition software and may contain errors and omissions. * Progress note Date Encounter Last Documented by 12/16/2023 Physician Specified Last grace crawley on 12/22/2023; 1:38 PM, Bulmaro Cornejo MD; [facility], [facility] Active Problems & Conditions - Joint Pain, Localized in the Right Shoulder Referred Here Referred by Dr. Theodore. History of Present Illness Lai Caballero is a 53 year old male. - Symptoms catching. - Allergy list reviewed - Problem list reviewed - Medication list reviewed - Previous history of new onset pain 10/2023 Injury is not work related or an automotive accident - Sharp pain Symptoms - Patient pain level from 1-10: 8 - Yes, previous treatment. Dr. Faust - - Review of medications documented Patient is here for his right shoulder. He is noted increasing tightness and stiffness in the shoulder. He has a diabetic. He has noted a improvement in his overall glucose control however he does state that his sugars still present a problem that he is working on and trying to attain better glucose control overall. Current Medication - Cetirizine HCl 10 MG Oral Tablet 30 days, 0 refills - FreeStyle Lite Test In Vitro Strip 50 days, 0 refills - hydrOXYzine HCl 25 MG Oral Tablet 10 days, 0 refills - Levothyroxine Sodium 175 MCG Oral Tablet 30 days, 0 refills - metFORMIN HCl 500 MG Oral Tablet 30 days, 0 refills - Rosuvastatin Calcium 10 MG Oral Tablet 30 days, 0 refills - Sertraline HCl 50 MG Oral Tablet 30 days, 0 refills Past Medical/Surgical History Diagnoses: Heartburn / Acid Reflux Thyroid Disease. Diabetes mellitus. Depression Surgical: - Hernia repair Social History Not a current smoker. Current diet: Recent change in diet low sugar/carb. Caffeine use: Caffeine use. Alcohol: Alcohol use. Drug Use: Not using drugs. Habits: Not exercising regularly. Allergies - No Known Allergies Family History Cancer Diabetes mellitus Review Of Systems Systemic: Not feeling tired, no recent weight loss, and no recent weight gain. Head: No headache and no sinus pain. Eyes: Vision problems. No Cataracts. Glasses/Contacts. No Glaucoma. Otolaryngeal: Hearing loss. No tinnitus. Cardiovascular: No chest pain or discomfort, no palpitations, no Hypertension, and no High Cholesterol. Pulmonary: No daytime asthma symptoms and no chronic cough. No wheezing. Gastrointestinal: No heartburn and no abdominal pain. No Indigestion, no Peptic Ulcer, no GI Stomach Bleed, no Ulcers, and no Acid Reflux. Endocrine: No hot flashes and no muscle weakness. Diabetes. No Hypothyroid. Hyperthyroid. Hematologic: No easy bleeding, no tendency for easy bruising, and no Anemia. Musculoskeletal: No Arthritis and no lower back pain. No soft tissue swelling. Pain localized to one or more joints. Neurological: No dizziness, no convulsions, and no numbness. Psychological: No anxiety and no emotional lability. Depression. No insomnia. Not crying for no reason. Skin: No dry skin. No Ulcers, no Scars, and no rash. Allergic and Immunologic: No complaint of seasonal allergic reaction. Physical Findings - Vitals taken 12/16/2023 02:10 pm kld Height 72 in Weight 240 lbs Body Mass Index 32.5 kg/m2 Body Surface Area 2.3 m2 Alert and oriented ? - 3 mood and affect are appropriate. Skin over the shoulder is intact. Active and passive forward elevation are limited. Active and passive external rotation are limited active and passive internal rotation are limited. Strength intact to supra and infraspinatus. Subscap testing limited secondary to loss of internal rotation. Fingers are warm and well perfused. Tests MRI of the shoulder demonstrates a low-grade partial-thickness supraspinatus tear. There is degenerative signal in the superior labrum consistent with the type 1 slap tear. There is thickening of the rotator interval consistent with frozen shoulder. Assessment - Overweight 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 Previous Tests Imaging: X-Ray: An X-ray was performed. CT Scan: CT scan. Counseling/Education - Tobacco non-user - Use of tobacco assessment performed - Lose weight Plan StartCited - Other Therapy/Physical Therapy: Shoulder Instructions: See PT order attached EndCited Plan will be for an intra-articular injection of corticosteroids. I did tell this patient that it could transiently elevate his sugars in the short term. He states he will be modifying his medications in addition to have strict dietary control to help improve this occurrence. We will also send him physical therapy for capsular stretching and mobility. We will see him back as scheduled Procedure note: Right shoulder: The risk and benefits of the injection were outlined to the patient. They understand these and wished to proceed. The anterior portion of the shoulder over the glenohumeral joint was prepped with alcohol and Betadine. Using a 27-gauge needle and 5 cc syringe I pierced the skin breaching the anterior joint capsule. I then aspirated to confirm no presence of a vascular bed I then injected a solution of 40 mg Kenalog / 2 cc of lidocaine/2 cc of Marcaine into the joint. The patient tolerated this procedure well. Notes This dictation was done with voice recognition software and may contain errors and omissions.
--- OUTSIDE RECORDS SUMMARY | 2024-09-18 09:34 | XMS_ITS | Clinical Summary ---
Author Organization [facility] , [facility] Address [address] [place] [phone] Phone Care Team Providers Care Precision Layout Worker Name Role Phone Chantal MONTES, Bulmaro Coughlin Unavailable Unavail able Reason for Visit and Chief Complaint Physician Specified Problems Includes: Problems addressed during this encounter and other active Problems Current Visit Onset Date Resolved Date Provider Jass Baron Joint Pain, Localized in the Right Shoulder 12/16/2023 Bulmaro rendon MD Active Last Documented On 4 1:52PM ; [facility] Plan of Treatment Plan will be for an intra-articular injection [...] joint. The patient tolerated this procedure well. - Last Documented On 12/22/2023 1:38PM ; [facility], [facility] Pending Tests Order Diagnosis Results Due Ordering P rovider Therapy - Physical Therapy Shoulder 12/16/23 Bulmaro Cornejo MD Last Documented On 4 1:38PM ; [facility], [facility] Instructions to patient Lose weight Last Documented On 4 2:24PM ; [facility], [facility] Assessments Includes: Assessments from this encounter Findings - Overweight - Last Documented On 12/22/2023 1:38PM ; [facility], [facility] 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 - Last Documented On 12/22/2023 1:38PM ; [facility], [facility] Instructions Includes: Instructions from this encounter Instructions to patient Lose weight Last Documented On 4 2:24PM ; [facility], [facility] Medical Equipment - Implanted Devices Includes: Current Devices No Medical Equipment Recorded Medications Includes: Medications discussed during this encounter and other current Medications Discontinued / Stopped on this date on 12/06/2023 Cetirizine HCl 10 MG Oral Tablet Provider : Diagnosis: Last Documented On 4 1:53PM By Erin Donnelly ; [facility], [facility] Sertraline HCl 50 MG Oral Tablet Provider : Shayla Peterson APRN Diagnosis: Last Documented On 4 1:53PM By Erin Donnelly ; [facility], [facility] Current Medications (continue as prescribed) Rosuvastatin Calcium 10 MG O ral Tablet 12/13/2023 Provider: Shayla tan APRN Diagnosis: Last Documented On 4 1:53PM By Erin Donnelly ; [facility], [facility] metFORMIN HCl 500 MG Oral Tablet 12/09/2023 Provider : Shayla Peterson APRN Diagnosis: Last Documented On 4 1:53PM By Erin Donnelly ; [facility], [facility] hydrOXYzine HCl 25 MG Oral Tablet 12/01/2023 Provide r: Shayla Peterson APRN Diagnosis: Last Documented On 4 1:53PM By Erin Donnelly ; [facility], [facility] FreeStyle Lite Test In Vitro Strip 11/24/2023 Provid er: Shayla Peterson APRN Diagnosis: Last Documented On 4 1:53PM By Erin Donnelly ; [facility], [facility] Levothyroxine Sodium 175 MCG Oral Tablet 11/17/2023 Provider: LEBRON ESTEVES MD (E) Diagnosis: Last Documented On 4 1:53PM By Erin Donnelly ; [facility], [facility] Sertraline HCl 50 MG Oral Tablet 11/10/2023 Provider : Shayla Peterson APRN Diagnosis: Last Documented On 4 1:53PM By Erin Donnelly ; [facility] Cetirizine HCl 10 MG Oral Tablet 11/06/2023 Provider : Diagnosis: Last Documented On 4 1:53PM By Erin Donnelly ; [facility] Medications Administered Includes: Administered Medications from this encounter No Administered Medications Recorded Vital Signs Includes: Vital Signs from this encounter Vital Name 12/16/2023 02:10P Height (in) 72 Weight (lb) 240 Body Mass Index 32.5 Body Surface Area 2.3 Note: kld Last Documented: On 12/16/2023 2:10PM ; [facility] Results Includes: Results discussed during this encounter No Results Recorded For Specified Dates History of Present Illness Includes: History of Present Illness from this encounter RUCHI Caballero is a 53 year old male. [...] trying to attain better glucose control overall. Social History Description Last Updated Alcohol use 12/16/2023 Last Documented On 4 1:38PM ; [facility] Caffeine use 12/16/2023 Last Documented On 4 1:38PM ; [facility] Not a current smoker. 12/16/2023 Last Documented On 4 1:38PM ; [facility] Not exercising regularly 12/16/2023 Last Documented On 4 1:38PM ; [facility] Not using drugs 12/16/2023 Last Documented On 4 1:38PM ; [facility] Recent change in diet low sugar/carb Last Documented On 4 1:38PM ; [facility] Smoking Status Unknown Procedures and Surgical History Includes: Procedures from this encounter Procedures Code Diagnosis Performing Provider Service Location Service Date DRAIN/INJECT, JOINT/BURSA (RIGHT) Adhesive capsulitis of right shoulder Bulmaro Cornejo MD [facility] 12/16/2023 Last Documented On 4 10:49AM ; [facility] Triamcinolone/Kenalog, 10mg per cc [id number] Adhesive capsulitis of right shoulder Bulmaro Cornejo MD [facility] 12/16/2023 Last Documented On 4 10:49AM ; [facility] an X-ray was performed [id number] Last Documented On 4 2:22PM ; [facility] [place] scan [id number] Last Documented On 4 2:22PM ; [facility] Surgical History Last Updated History of hernia repair 12/16/2023 Last Documented On 4 1:38PM ; [facility] Medical History Includes: Medical History addressed during this encounter Description Last Updated History of depression 12/16/2023 Last Documented On 4 1:38PM ; [facility] History of diabetes mellitus 12/16/2023 Last Documented On 4 1:38PM ; [facility] History of Heartburn / Acid Reflux 12/15 Last Documented On 4 1:38PM ; [facility] History of Thyroid Disease 12/16/2023 Last Documented On 4 1:38PM ; [facility] Family History Includes: Family History addressed during this encounter Description Last Updated Diabetes mellitus 12/16/2023 Last Documented On 4 1:38PM ; [facility] Family history of cancer 12/16/2023 Last Documented On 4 1:38PM ; [facility] Review of Systems Includes: Review of Systems from this encounter Systemic: Not feeling tired, no recent weight [...] Immunologic: No complaint of seasonal allergic reaction. Mental Status Includes: Mental Status from this encounter Description No anxiety Functional Status Includes: Functional Status from this encounter No Functional Status Recorded Physical Exam Includes: Physical Exam from this encounter Allergies Includes: Active Allergies No Known Allergies Encounters Encounter Provider Location Date Check-In Time Check-Out Time Diagnosis Physician Specified Bulmaro Cornejo MD [facility] 12/16/19 24 1:50PM 2:00PM Overweight Insurance Includes: Active Insurance Policies Plan Name Member ID Group # Subscriber Relationship Effect anabel Dates 1 - [employer] [facility] [id number] Lai Caballero Self Clinical Notes Includes: Clinical Notes from this encounter * Progress note Date Encounter Last Documented by 12/16/2023 Physician Specified Last grace crawley on 12/22/2023; 1:38 PM, Bulmaro Cornejo MD; [facility], [facility] Active Problems & Conditions - Joint [...]
--- OUTSIDE RECORDS SUMMARY | 2024-09-18 09:34 | XMS_ITS | Clinical Summary ---
Author Organization [facility] , [facility] Address [address] [place] [phone] Phone Care Team Providers Care Operations Staff Specialist Security Name Role Phone Chantal MONTES, Bulmaro Coughlin Unavailable Unavail able Reason for Visit and Chief Complaint The Chief Complaint is: right shoulder pain Problems Includes: Problems addressed during this encounter and other active Problems All Visits Onset Date Resolved Date Provider Condition S tatus Joint Pain, Localized in the Right Shoulder 12/16/2023 Bulmaro rendon MD Active Last Documented On 4 1:52PM ; [facility], [facility] Plan of Treatment Plan at this point for him to continue with home-based stretching protocol. I will continue to work on his sugars. 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-old gentleman with concomitant diabetes who is improving his sugar control - Last Documented On 02/26/2024 1:53PM ; [facility], [facility] Instructions Includes: Instructions from this encounter Instructions to patient Lose weight Last Documented On 4 8:26AM ; [facility], [facility] Medical Equipment - Implanted Devices Includes: Current Devices No Medical Equipment Recorded Medications Includes: Medications discussed during this encounter and other current Medications Current Medications (continue as prescribed) Rosuvastatin Calcium 10 MG O ral Tablet 12/13/2023 Provider: Shayla tan APRN Diagnosis: Last Documented On 4 1:53PM By Erin Donnelly ; [facility], [facility] metFORMIN HCl 500 MG Oral Tablet 12/09/2023 Provider : Shayla Peterson APRN Diagnosis: Last Documented On 4 1:53PM By Erin Donnelly ; [facility] hydrOXYzine HCl 25 MG Oral Tablet 12/01/2023 Provide r: Shayla Peterson ADI Diagnosis: Last Documented On 4 1:53PM By Erin Donnelly ; [facility] FreeStyle Lite Test In Vitro Strip 11/24/2023 Provid er: Shayla Calloway Kristen JOSHI Diagnosis: Last Documented On 4 1:53PM By Erin Donnelly ; [facility] Levothyroxine Sodium 175 MCG Oral Tablet 11/17/2023 Provider: LEBRON ESTEVES MD (E) Diagnosis: Last Documented On 4 1:53PM By Erin Donnelly ; [facility] Sertraline HCl 50 MG Oral Tablet 11/10/2023 Provider : Shayla Peterson APRN Diagnosis: Last Documented On 4 1:53PM By Erin Donnelly ; [facility], [facility] Cetirizine HCl 10 MG Oral Tablet 11/06/2023 Provider : Diagnosis: Last Documented On 4 1:53PM By Erin Donnelly ; [facility], [facility] Medications Administered Includes: Administered Medications from this encounter No Administered Medications Recorded Vital Signs Includes: Vital Signs from this encounter Vital Name 02/22/2024 08:31A Height (in) 72 Weight (lb) 250 Body Mass Index 33.9 Body Surface Area 2.3 Note: ab Last Documented: On 02/22/2024 8:31AM ; [facility], [facility] Results Includes: Results discussed during this encounter [...] improve this. His interval follow-up with his business office representative has actually lengthened secondary to this some of his compliance that is ongoing. Social History Description Last Updated Alcohol use 12/16/2023 Last Documented On 4 8:26AM ; [facility], [facility] Caffeine use 12/16/2023 Last Documented On 4 8:26AM ; [facility], [facility] Not a current smoker. 12/16/2023 Last Documented On 4 8:26AM ; [facility], [facility] Not exercising regularly 12/16/2023 Last Documented On 4 8:26AM ; [facility], [facility] Not using drugs 12/16/2023 Last Documented On 4 8:26AM ; [facility], [facility] Recent change in diet low sugar/carb Last Documented On 4 8:26AM ; [facility], [facility] Smoking Status Unknown Procedures and Surgical History Includes: Procedures from this encounter Procedures Code Diagnosis Performing Provider Service L ocation Service Date an X-ray was performed [id number] Last Documented On 4 8:26AM ; [facility], [facility] [place] [id number] Last Documented On 4 8:26AM ; [facility], [facility] Surgical History Last Updated History of hernia repair 12/16/2023 Last Documented On 4 8:26AM ; [facility], [facility] Medical History Includes: Medical History addressed during this encounter Description Last Updated History of depression 12/16/2023 Last Documented On 4 8:26AM ; [facility], [facility] History of diabetes mellitus 12/16/2023 Last Documented On 4 8:26AM ; [facility], [facility] History of Heartburn / Acid Reflux 12/15 Last Documented On 4 8:26AM ; [facility], [facility] History of Thyroid Disease 12/16/2023 Last Documented On 4 8:26AM ; [facility] Family History Includes: Family History addressed during this encounter Description Last Updated Diabetes mellitus 12/16/2023 Last Documented On 4 8:26AM ; [facility] Family history of cancer 12/16/2023 Last Documented On 4 8:26AM ; [facility] Review of Systems Includes: Review of Systems [...] Time Diagnosis Follow Up Bulmaro Cornejo MD [facility] 4 8:26AM 8:39AM Overweight Insurance Includes: Active Insurance Policies Plan Name Member ID Group # Subscriber Relationship Effect anabel Dates 1 - [employer]na [facility] [id number] Lai Caballero Self Clinical Notes Includes: Clinical Notes from this encounter * Progress note Date Encounter Last Documented by 02/22/2024 Follow Up Last documented on 02/26/2024; 1:53 PM, Bulmaro Cornejo MD; [facility], [facility] Active Problems & Conditions - Joint [...] improve this. His interval follow-up with his business office representative has actually lengthened secondary to this some [...]
--- OUTSIDE RECORDS SUMMARY | 2024-09-18 09:34 | XMS_ITS | Data Portability ---
Author Organization [facility] ARTIE Arteaga SEBASTIAN CLOSED Address [address] [facility] [facility] [place] [address] Care Team Providers Care Municipal Court Judge Name Role Phone LISE MAKI Referring Provider [phone] ANTOINETTE PIZARRO Primary Care Provider [phone] Assessment No assessment recorded. Plan of Treatment Reminders Order Date Submit Date Provider Last Modified By Organization Details Last Modified Time Details Appointments None record ed. Lab None record ed. Referral None record ed. Procedures None record ed. Surgeries None record ed. Imaging None record ed. Medication Orders None record ed. Patient TargetsNo targets recorded. Patient Instructions Encounter Date Encounter Id Patient Instructions Last Modified By Organization Details Last Modified Time 09/20/2022 [id number] 1. Trach replace d in office today.?? 2. We will refer to commissary officer at [facility] for their opinion and possible decannulation. estephania Not available 09/20/2022 18:16:23 Extensive discussion with patient and his . Tracheostomy care demonstrated with patient and and both were able to duplicate cannulation with the tracheostomy tube. Trach hygiene was explained [email or web address] Not available 09/20/2022 18:16:51 10/04/2022 [id number] 1. Discussed proper trach hygiene. 2. 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 Problems No Known Problems Procedures Surgical History Date Name Laterality Status Provider Name and Address Organization Details Recorded Time 09/21/19 23 Op Note completed JESSICA PENA MD [facility] [place], [address], [facility] 09/20/2022 18:15:23 09/21/19 23 Laryngoscopy Flex completed JESSICA PENA MD [address] [place], [address], [facility] 09/20/2022 18:13:25 09/08/19 23 Tracheostomy inner cannula completed [facility] 09/20/2022 08:31:18 procedure on finger completed [facility] 09/20/2022 08:31:50 hernia repair completed [facility] 09/20/2022 08:31:57 Imaging Results None recorded. Procedure Notes None recorded. Medical Equipment None Reported. Allergies No known drug allergies Medications Name Sig Start Date Stop Date Status Note LastModified by Organization Details LastModified Time methocarbam ol 500 mg tablet TAKE 1 TABLET BY MOUTH EVERY 8 HOURS NEEDED FOR MUSCLE SPASM 09/20 completed Not Available Not Available Not Available metformin 500 mg tablet TAKE 1 TABLET BY MOUTH ONCE DAILY 09/20 completed Not Available Not Available Not Available promethazin e-DM 6.25 mg-15 mg/5 mL oral syrup TAKE 5 ML BY MOUTH EVERY 6 HOURS NEEDED FOR COUGH FOR 10 DAYS active Not Available Not Available No t Available ipratropium 0.5 mg-albutero l 3 mg (2.5 mg base)/3 mL nebulizatio n soln USE 3ML VIA NEBULIZER EVERY 6 HOURS NEEDED FOR SHORTNESS OF BREATH OR WHEEZING active Not Available Not Available No t Available cetirizine 10 mg tablet TAKE 1 TABLET BY MOUTH ONCE DAILY FOR 30 DAYS active Not Available Not Available No t Available ibuprofen 800 mg tablet TAKE 1 TABLET BY MOUTH THREE TIMES DAILY NEEDED FOR MODERATE PAIN active Not Available Not Available No t Available benzonatate 200 mg capsule TAKE 1 CAPSULE BY MOUTH THREE TIMES DAILY NEEDED FOR 7 DAYS active Not Available Not Available No t Available levetiracet am 500 mg tablet TAKE 1 TABLET BY MOUTH EVERY 12 HOURS active Not Available Not Available No t Available FreeStyle Lancets 28 gauge USE 1 TO CHECK GLUCOSE ONCE DAILY active Not Available Not Available No t Available Euthyrox 100 mcg tablet TAKE 1 TABLET BY MOUTH IN THE MORNING FOR 30 DAYS active Not Available Not Available No t Available alprazolam 0.5 mg tablet TAKE 1 TABLET BY MOUTH TWICE DAILY NEEDED FOR SLEEP OR ANXIETY FOR 7 DAYS active Not Available Not Available No t Available benzonatate 100 mg capsule TAKE 1 CAPSULE BY MOUTH THREE TIMES DAILY NEEDED FOR COUGH active Not Available Not Available No t Available levothyroxi ne 50 mcg tablet TAKE 1 TABLET BY MOUTH ONCE DAILY 09/20 completed Not Available Not Available Not Available pantoprazol e 40 mg tablet,nanda yed release TAKE 1 TABLET BY MOUTH ONCE DAILY FOR 30 DAYS active Not Available Not Available No t Available hydroxyzine HCl 25 mg tablet TAKE 2 TABLETS BY MOUTH EVERY 8 HOURS NEEDED FOR ITCHING FOR 30 DAYS active Not Available Not Available No t Available fluticasone propionate 50 mcg/actuati on nasal spray,suspe nsion USE 1 SPRAY(S) IN EACH NOSTRIL ONCE DAILY active Not Available Not Available No t Available sertraline 50 mg tablet TAKE 1 TABLET BY MOUTH ONCE DAILY FOR 30 DAYS active Not Available Not Available No t Available cyclobenzap rine 5 mg tablet TAKE 1 TABLET BY MOUTH TWICE DAILY NEEDED FOR MUSCLE SPASM FOR 14 DAYS 09/20 completed Not Available Not Available Not Available FreeStyle Lite Meter kit USE DIRECTED active Not Available Not Available No t Available FreeStyle Lite Strips USE 1 STRIP TO CHECK GLUCOSE ONCE DAILY active Not Available Not Available No t Available Jardiance 10 mg tablet TAKE 1 TABLET BY MOUTH ONCE DAILY active Not Available Not Available No t Available Vitals Date Recorded Body height Body mass index (BMI) Body weight Body temperature Provider Name and Address Organization Details Last Updated DateTime 09/20/2022 185.42 cm 29 kg/m2 63542.32 g 97.3 [degF] [facility] 09/20/2022 08:39:55 Date Recorded Body height Body mass index (BMI) Body weight Body temperature Heart rate Systolic blood pressure Diastolic blood pressure Provider Name and Address Organization Details Last Updated DateTime 3 185.42 cm 29.4 kg/m2 437059. 1 g 97.7 [degF] 92 /min 128 mm[Hg] 75 mm[Hg] [facility] 15:18:10 Social History Question Answer Notes LastModified by Organization D etails LastModified Time What Is Your Level Of Alcohol Consumption? None [email or web address] Information not available 09/20/2022 Sex: Unknown Functional Status None recorded. Mental Status None recorded. Family History Relationship Description Onset Age of this Age Resolved Age Notes LastModified by Organization Details LastModified Time Sister Diabetes mellitus [email or web address] Not available 09/20 08:30:10 Sister Disorder of thyroid gland [email or web address] Not available 09/20 08:30:18 Medical History Condition Response Anxiety Disorder Y Diabetes Y Thyroid Problems Y Past Encounters Encounter ID Performer Location Encounter Start Date Encounter Closed Date Diagnosis/Indication Diagnosis SNOMED-CT Code Diagnosis ICD10 Code Diagnosis Note [id number] JESSICA PENA MD [facility] [address] [place] [address] 09/20/2022 08:10:20 09/20/2022 09:40:29 Tracheostomy present 400470668 Z93.0 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 significan t Health Concerns Section Related Observation LastModified by Organization Detai ls LastModified Time None Recorded Concern Status LastModified by Organization Details LastModified Time None Recorded Advance Directives Directive None Recorded Payers Encounter Date Sequence Insurance Name Policy Number Policy Huff Covered Member ID Huff Member ID Guarantor Name 09/20/2022 1 [employer] [facility] (MEDICAID HMO) Lai Caballero [id number] Lai Caballero 10/04/2022 1 [employer] [facility] (MEDICAID HMO) Lai Caballero [id number] Lai Caballero Notes Date Note Type Note Provider Name and Address Organization Details Recorded Time 09/20/2022 text/html Lai was recently seen as a hospital consultation after 2 failed extubations. He is accompanied by his who assists with his history. For some unknown reason he had sudden dyspnea and was intubated. There were some other issues in terms of confusion and other medical problems. Underwent tracheostomy tube placement by general surgery on 09/07/2022. A cuffed tracheostomy tube was placed. Today he presents for tracheostomy tube change and reassessment. [facility] [place], [address], [facility] 09/20/2022 18:19:23 10/04/2022 text/html Lai is a 52 year old male who visits us in office today to follow up on his trache. Lai states that he still gets coughing attacks occasionally but has otherwise been doing well since his last visit. JESSICA PE[facility] [place], [address], [facility] 10/04/2022 18:14:30
--- NOTE | 2024-09-18 09:36 | US_ITS ---
FINAL REPORT CLINICAL HISTORY: DM, PAIN COMPARISON: None FINDINGS: ANKLE-BRACHIAL PRESSURE INDICES Pressure indices are as follows: RIGHT LOWER EXTREMITY: Ankle-brachial pressure index: 1.15 Comments: Normal LEFT LOWER EXTREMITY: Ankle-brachial pressure index: 1.42 Comments: Normal CONCLUSION: No evidence of significant obstructive peripheral vascular disease of the lower extremities Reviewed, Interpreted and Dictated by Beltran Mccloud MD Transcribed by Winter Calzada Authenticated and [facility]
== END 2024-09-18 23:59 | disposition home or self-care (01) ==
LOC: RT 09:32
PROVIDERS: PCP Internal Medicine Adolescent Medicine; Visit Provider Internal Medicine Adolescent Medicine
DX: M79.2 Neuralgia and neuritis, unspecified (principal); E11.9 Type 2 diabetes mellitus without complications
CPT/HCPCS: 93923

== ENCOUNTER 2024-11-20 08:09 | Outpatient (CLI) | payer MEDICARE, MEDICAID, SELFPAY ==
--- OUTSIDE RECORDS SUMMARY | 2024-09-28 12:15 | XMS_ITS ---
Author Organization [facility] Address [address] [place] [address] Care Team Providers Care Medication Aide Name Role Phone Chase Peterson Primary Care Provider [phone] CHASE PETERSON JACKELYN Unavailable Unavaila ble Allergies No Known Allergies REASON FOR VISIT 6 month check up Medications Medication SIG (Take, Route, Frequency, Duration) Notes Start Date End Date Status Rosuvastatin Calcium 10 MG 1 tab(s) orally once a day for 30 day(s) Active Allergy Relief (Cetirizine) 10 MG 1 tab(s) orally once a day for 30 days Active metFORMIN HCl 500 MG 1 tab(s) orally once a day for 90 days Active Pantoprazole Sodium 40 MG Take 1 tablet by mouth once daily for 90 Active Sertraline HCl 50 MG 1 tablet Orally Once a day for 90 days 09/09/2024 Active Famotidine 40 MG 1 tab(s) orally once a day (at bedtime) for 90 days Active Levothyroxine Sodium 137 MCG 1 tab(s) orally once a day for 30 days 01/01/2023 Active TEST STRIPS AND LANCETS NA ONCE A DAY NA ONCE A DAY for 30 DAYS E11.9 *Please review for potential replacement for e-prescription and drug interaction check* 07/20/2022 Active Diclofenac Sodium 1 % 2 gram applied topically 4 times a day for 30 days 12/12/2023 Active rOPINIRole HCl 0.25 MG 1 tab(s) orally at night as needed for restless legs for 30 days 02/08/2024 Active Multivitamin 1 TAB ONCE A DAY *Please review and pick correct strength-formulati on from [employer] options. If intended option is not shown, discontinue and re-order from Quick Search* Active Vitamin A 10,000 UNITS 1 TAB PO QD *Please review and pick correct strength-formulati on from [employer] options. If intended option is not shown, discontinue and re-order from Quick Search* Active Vitamin C 1000 MG 1 tab(s) orally once a day Active GLUCOMETER E11.9 *Please review for potential replacement for e-prescription and drug interaction check* 07/20/2022 Active Flonase Allergy Relief 50 MCG/ACT as directed in each nostril once a day for 30 days 08/16/2022 Active hydrOXYzine HCl 25 MG 1 tab orally every morning and once a day as needed for anxiety for 90 days Active Jardiance 25 MG 1 tablet Orally Once a day for 90 days 09/28/2024 Active Xanax 0.5 MG 1 tab(s) orally twice a day as needed for anxiety 10/18/2022 Active Ozempic (2 MG/DOSE) 8 MG/3ML inject 2mg Subcutaneous 09/10/2024 Active Social History Tobacco Use: Social History Observation Description Date Details (start date - stop date) Never Smoker NA - NA Smoking: Question Answer Notes Are you a: nonsmoker Vital Signs Temperature 98.0 degrees Fahrenheit 09/29/19 25 Blood pressure systolic 116 mm Hg 09/29/19 25 Blood pressure diastolic 84 mm Hg 025 Heart Rate 92 /min 09/28/2024 Height 6ft 1in in 09/28/2024 Weight 252 lbs 09/28/2024 BMI 33.24 kg/m2 09/28/2024 Encounters Encounter Location Date Provider Diagnosis [facility] [place] [address] [place] [address] 09/28/2024 Chase Peterson Type 2 diabetes mellitus without complication, without long-term current use of insulin E11.9 ; JOCELIN (generalized anxiety disorder) F41.1 ; Hypothyroidism, unspecified hypothyroidism type E03.9 and RLS (restless legs syndrome) G25.81 Assessments Encounter Date Diagnosis (ICD Code) Assessment Notes Treatment Notes Treatment Clinical Notes Section Notes 09/28/2024 Type 2 diabetes mellitus without complication, without long-term current use of insulin (ICD-10 - E11.9) Rec increase Jardiance to 25mg daily, FU with endo again as scheduled and with us in 6 months. Continue CC diet and exercise as tolerated. 09/28/2024 JOCELIN (generalized anxiety disorder) (ICD-10 - F41.1) immproved on current regimen, continue to minimize use of xanax 09/28/2024 Hypothyroidism, unspecified hypothyroidism type (ICD-10 - E03.9) per endocrine 09/28/2024 RLS (restless legs syndrome) (ICD-10 - G25.81) continue requip 09/28/2024 Other Plan Of Treatment Medication Medication Name Sig Start Date Stop Date Notes hydrOXYzine HCl 25 MG 1 tab orally every morning and once a day as needed for anxiety for 90 days Jardiance 25 MG 1 tablet Orally Once a day for 90 days 09/28/2024 Xanax 0.5 MG 1 tab(s) orally twic e a day as needed for anxiety 10/18/2022 Jardiance 10 MG Take 1 tablet by once daily Ozempic (2 MG/DOSE) 8 MG/3ML inject 2mg Subcutaneous 09/10 Treatment Notes Assessment Notes Type 2 diabetes mellitus wit hout complication, without long-term current use of insulin Rec increase Jardiance to 25mg daily, FU with endo again as scheduled and with us in 6 months. Continue CC diet and exercise as tolerated. Next Appt Details Follow Up: 6 Months, Reason: Provider Name:Chase Pa ce, 03/29/2025 04:15:00 PM, [address] [facility] [address] [facility], [address], [place], [address], Progress Notes * Lai CABALLERODOB: [birth year] (54 yo M)Acc No.[id number]:09/28/2024 Progress Notes Patient: Yang VAZQUEZXANDERSalvatoreLai Provider: NOA Peres :1970 A ge:54 Y S ex:Male Date:09/28/2024 Address:[address] [place], [place] [id number] Subjective: * Chief Complaints: * 1 . 6 month check up. * HPI: g en: 54-year-old male with type 2 diabetes, autoimmune hypothyroidism, anxiety presents today to follow-up on chronic disease. Needs refills on his routine medications. He is following with endocrinology now for his thyroid disease and diabetes. Still taking Ozempic weekly, up to 2mg per week, A1C not at goal but down from high of 9.9. Goal is to get A1C < 6.5 and stop metformin if possible. Has endocrine FU again in about 4 months. Has been compliant with all of his medications. He has had neurology follow-up and weaned off of Keppra which he tolerated well so far. Doing better since resuming sertraline. Only using xanax occasionally. FSBS 134 this morning. Doing better with dietary changes. * ROS: R ESPIRATORY: no S hortness of breath. n o C ough. ? C ARDIOLOGY: no C hest pain. C ONSTITUTIONAL: no L oss of appetite. n o F ever. n o W eakness. D ERMATOLOGY: no R juan francisco. G ASTROENTEROLOGY: Heartburn y es. n o V omiting. n o D iarrhea. n o C onstipation. M USCULOSKELETAL: See HPI Y es. J oint stiffness y es. J oint pain y es. N EUROLOGY: no S eizures. I nsomnia y es. n o M jarad loss. P SYCHOLOGY: no D epression. A nxiety i mproved with daily zoloft . 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 * Surgical History: h ernia repair , tracheotomy 09/2022. * Hospitalization/Major Diagno stic Procedure: t racheotomy 09/2022. * Family History: F ather: , cancer, unknown kind but possibly lung, 2003, smoker. M other: , dementia. P aternal Grand Father: . P aternal Grand Mother: . M aternal Grand Father: . M aternal Grand Mother: . P aternal uncle: . P aternal aunt: , dementia. S iblings: alive. C vladislav: alive. 1 sister(s) - healthy. 3 son(s) - healthy. . * Social History: S moking A re you a: n onsmoker. R ecreational drug use: no. Exercise: yes. Home smoke detector use: yes. Caffeine: yes, frequency: daily. Living Will: No. Alcohol: socially. Sexually active: yes. Travel outside [place]: no. * Medications: T aking Multivitamin 1 TAB ONCE A DAY , Notes to Pharmacist: *Please review and pick correct strength-formulation from [employer] options. If intended option is not shown, discontinue and re-order from Quick Search*, Taking Vitamin A 10,000 UNITS 1 TAB PO QD , Notes to Pharmacist: *Please review and pick correct strength-formulation from [employer] options. If intended option is not shown, [...] day as needed for anxiety , Taking Levothyroxine Sodium 137 MCG Tablet [...] topically 4 times a day , Taking rOPINIRole HCl 0.25 MG Tablet 1 tab(s) orally at night as needed for restless legs , Taking hydrOXYzine HCl 25 MG Tablet 1 tab orally every morning and once a day as needed for anxiety , Taking Famotidine 40 MG Tablet 1 tab(s) orally once a day (at bedtime) , Taking Rosuvastatin Calcium 10 MG Tablet 1 tab(s) orally once a day , Taking Jardiance 10 MG Tablet Take 1 tablet by mouth once daily , Taking Allergy Relief (Cetirizine) 10 MG Tablet 1 tab(s) orally once a day , Taking metFORMIN HCl 500 MG Tablet 1 tab(s) orally once a day , Taking Pantoprazole Sodium 40 MG Tablet Delayed Release Take 1 tablet by mouth once daily , Taking Sertraline HCl 50 MG Tablet 1 tablet Orally Once a day , Taking Ozempic (2 MG/DOSE) 8 MG/3ML Solution Pen-injector inject 2mg Subcutaneous , Medication List reviewed and reconciled with the patient * Allergies: N .K.D.A. Objective: * Vitals: N urse: be, Pain: 0, Temp: 98.0, RR: 16, HR: 92, BP: 116/84, Ht: 6ft 1in, Wt: 252, BMI:33.24. * Examination: G eneral Examination: General P leasant and Cooperative, NAD on RA,. Chest: n ormal shape and expansion. Heart: R egular Rate and Rhythm, no murmur, rubs or gallops. HEENT: g lasses/hearing aides. Lungs: L CTAB, No wheezes, crackles or rhonchi, Good air movement,. Skin: w ithout acute rashes. Extremities: n o clubbing, no edema,. Psych N ormal Mood/Affect. Assessment: * Assessment: 1. T ype 2 diabetes mellitus without complication, without long-term current use of insulin - E11.9 (Primary) 2 . G AD (generalized anxiety disorder) - F41.1 3 . H ypothyroidism, unspecified hypothyroidism type - E03.9 4 . R LS (restless legs syndrome) - G25.81 Plan: * Treatment: 2. G AD (generalized anxiety disorder) Continue Xanax Tablet, 0.5 MG, 1 tab(s), orally, twice a day as needed for anxiety; R efill hydrOXYzine HCl Tablet, 25 MG, 1 tab, orally, every morning and once a day as needed for anxiety, 90 days, 90, Refills 1. Clinical Notes: immproved on current regimen, continue to minimize use of xanax 3. H ypothyroidism, unspecified hypothyroidism type Clinical Notes: per endocrine 4. R LS (restless legs syndrome) Clinical Notes: continue requip * Follow Up: 6 Months * * Sign off status: Completed true * Provider: NOA Peres Date: 0 09/28/2024 Generated for Jenaro jensen/Guero/Devorah on: 0 11/20/2024 08:11 AM EDT History and Physical Notes * Examination Category Sub-Category Detail Notes Category Not es General Examination HEENT: glasses/hearing aides Heart: Regular Rate and Rhy thm, no murmur, rubs or gallops Lungs: LCTAB, No wheezes, c rackles or rhonchi, Good air movement, Extremities: no clubbing, no abimbola a, Skin: without acute rashes Chest: normal shape and exp ansion General Pleasant and Coopera tive, NAD on RA, Psych Normal Mood/Affect
--- OUTSIDE RECORDS SUMMARY | 2024-11-16 11:15 | XMS_ITS ---
Author Organization [facility] PE D [place] Address [address] [facility] [address] [facility] [address] [place] [address] Care Team Providers Care Tender Labor Name Role Phone Chase Peterson Primary Care Provider CHASE PETERSON Unavailable Unavaila ble Allergies No Known Allergies Reason For Referral Reason echo Diagnosis 1 SOB (shortness of br eath) (R06.02) Referral Organization [facility] ELEAZAR JONES Referring Provider First Name Chase Referring Provider Last Name Kristen Referring Provider Speciality Family Pra ctice Referred Organization [facility] Referred Address [address] [facility] [address] [facility], [place], [place],[address], Referred Provider Specialty Diagnostic R adiology General Notes Vy Barrientos 2024 10:13:08 AM >sent to [facility] to schedule Referral Priority Routine REASON FOR VISIT Shortness of breath, light headed-off and on for 3-4 days Medications Medication SIG (Take, Route, Frequency, Duration) Notes Start Date End Date Status Diclofenac Sodium 1 % 2 gram applied topically 4 times a day for 30 days 12/12/2023 Active TEST STRIPS AND LANCETS NA ONCE A DAY NA ONCE A DAY for 30 DAYS E11.9 *Please review for potential replacement for e-prescription and drug interaction check* 07/20/2022 Active Levothyroxine Sodium 137 MCG 1 tab(s) orally once a day for 30 days 01/01/2023 Active Flonase Allergy Relief 50 MCG/ACT as directed in each nostril once a day for 30 days 08/16/2022 Active GLUCOMETER E11.9 *Please review for potential replacement for e-prescription and drug interaction check* 07/20/2022 Active Multivitamin 1 TAB ONCE A DAY *Please review and pick correct strength-formulati on from [employer] options. If intended option is not shown, discontinue and re-order from Quick Search* Active Rosuvastatin Calcium 10 MG 1 tab(s) orally once a day for 30 day(s) Active Jardiance 25 MG 1 tablet Orally Once a day for 90 days 09/28/2024 Active Vitamin C 1000 MG 1 tab(s) orally once a day Active Vitamin A 10,000 UNITS 1 TAB PO QD *Please review and pick correct strength-formulati on from [employer] options. If intended option is not shown, discontinue and re-order from Quick Search* Active hydrOXYzine HCl 25 MG 1 tab orally every morning and once a day as needed for anxiety for 90 days Active Ozempic (2 MG/DOSE) 8 MG/3ML inject 2mg Subcutaneous 09/10/2024 Active Xanax 0.5 MG 1 tab(s) orally twice a day as needed for anxiety 10/18/2022 Active Sertraline HCl 50 MG 1 tablet Orally Once a day for 90 days 09/09/2024 Active Pantoprazole Sodium 40 MG Take 1 tablet by mouth once daily for 90 Active metFORMIN HCl 500 MG 1 tab(s) orally once a day for 90 days Active Allergy Relief (Cetirizine) 10 MG 1 tab(s) orally once a day for 30 days Active Famotidine 40 MG 1 tab(s) orally once a day (at bedtime) for 90 days Active rOPINIRole HCl 0.25 MG 1 tab(s) orally at night as needed for restless legs for 30 days 02/08/2024 Active Social History Tobacco Use: Social History Observation Description Date Details (start date - stop date) Never Smoker NA - NA Smoking: Question Answer Notes Are you a: nonsmoker Vital Signs Temperature 97.8 degrees Fahrenheit 11/17/19 25 Blood pressure systolic 116 mm Hg 11/17/19 25 Blood pressure diastolic 80 mm Hg 025 Heart Rate 98 /min 11/16/2024 Height 6ft 1in in 11/16/2024 Weight 249.8 lbs 11/16/2024 BMI 32.95 kg/m2 11/16/2024 Oximetry 96 11/16/2024 Encounters Encounter Location Date Provider Diagnosis [facility] [place] [address] [place] [address] 11/16/2024 Chase Peterson SOB (shortness of breath) R06.02 and Intermittent chest pain R07.9 Assessments Encounter Date Diagnosis (ICD Code) Assessment Notes Treatment Notes Treatment Clinical Notes Section Notes 11/16/2024 SOB (shortness of breath) (ICD-10 - R06.02) Labs done relatively recently were consistent with his baseline. EKG today with chronic changes, reviewed with Dr. Faust. Recommend echo as noted and additional testing or follow-up based on those results. We did discuss the importance of going to the emergency department if any of the symptoms progress or if new concerns develop 11/16/2024 Intermittent chest pain (ICD-10 - R07.9) Plan Of Treatment Pending Test Test Name Order Date Echocardiogram 11/16/2024 Referrals Referral Date Details 11/16/2024 11/16/2024, echo, [address] [facility], [place], [address], Next Appt Details Follow Up: pending results, Reason: Provider Name:Chase Pa britney, 03/29/2025 04:15:00 PM, [address] [facility] [address] [facility], [address], [place], [address], Progress Notes * Lai CABALLERODOB: [birth year] (54 yo M)Acc No.[id number]:11/16/2024 Progress Notes Patient: Lai ROSALES Provider: NOA Peres :1970 A ge:54 Y S ex:Male Date:11/16/2024 Address:[id number] Subjective: * Chief Complaints: * 1 . Shortness of breath, light headed-off and on for 3-4 days. * HPI: C ardiology: 54-year-old male presents today with some intermittent episodes of shortness of breath and dizziness over the past week or so. Has had 1 episode of chest pain but cannot recall if this was associated with shortness of breath at that time. He denies any changes in his medications, recent illness or other precipitating factors. 54 year old male presents with c/o chest pain. c/o shortness of breath. c/o dizziness. c/o fatigue. Denies : palpitations. D enies : leg edema. D enies : cyanosis. D enies : diaphoresis. * ROS: R ESPIRATORY: See HPI Y es. n o C ough. C ONSTITUTIONAL: no L oss of appetite. n o F ever. n o W eakness. D ERMATOLOGY: no R juan francisco. G ASTROENTEROLOGY: no V omiting. n o D iarrhea. U ROLOGY: no D ifficulty urinating. 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 * Social History: S moking A re you a: n onsmoker. R ecreational drug use: no. Exercise: yes. Home smoke detector use: yes. Caffeine: yes, frequency: daily. Living Will: No. Alcohol: socially. Sexually active: yes. Travel outside [place]: no. * Medications: T aking Multivitamin 1 TAB ONCE A DAY , Notes to Pharmacist: *Please review and pick correct strength-formulation from [employer] options. If intended option is not shown, discontinue and re-order from Quick Search*, Taking Vitamin A 10,000 UNITS 1 TAB PO QD , Notes to Pharmacist: *Please review and pick correct strength-formulation from [employer] options. If intended option is not shown, discontinue and re-order from Quick Search*, Taking Vitamin C 1000 MG Tablet 1 tab(s) orally once a day , Taking GLUCOMETER , Notes to Pharmacist: E11.9 *Please review for potential replacement for e-prescription and drug interaction check*, Taking Flonase Allergy Relief 50 MCG/ACT Suspension as directed in each nostril once a day , Taking Levothyroxine Sodium 137 [...] as needed for restless legs , Taking Famotidine 40 MG Tablet 1 tab(s) orally once a day (at bedtime) , Taking Allergy Relief (Cetirizine) 10 MG Tablet 1 tab(s) orally once a day , Taking metFORMIN HCl 500 MG Tablet 1 tab(s) orally once a day , Taking Pantoprazole Sodium 40 MG Tablet Delayed Release Take 1 tablet by mouth once daily , Taking Sertraline HCl 50 MG Tablet 1 tablet Orally Once a day , Taking Xanax 0.5 MG Tablet 1 tab(s) orally twice a day as needed for anxiety , Taking Ozempic (2 MG/DOSE) 8 MG/3ML Solution Pen-injector inject 2mg Subcutaneous , Taking hydrOXYzine HCl 25 MG Tablet 1 tab orally every morning and once a day as needed for anxiety , Taking Jardiance 25 MG Tablet 1 tablet Orally Once a day , Taking Rosuvastatin Calcium 10 MG Tablet 1 tab(s) orally once a day , Medication List reviewed and reconciled with the patient * Allergies: N .K.D.A. Objective: * Vitals: N urse: jl, Pain: 4, Temp: 97.8, Pulse O2: 96, RR: 20, HR: 98, BP: 116/80, Ht: 6ft 1in, Wt: 249.8, BMI:32.95. * Examination: G eneral Examination: General P leasant and Cooperative, NAD on RA,. Oral cavity: M oist membranes. Heart: R egular Rate and Rhythm, no murmur, rubs or gallops. Lungs: L CTAB, No wheezes, crackles or rhonchi, Good air movement,. Abdomen: S oft, NTND, BSNA, No organomegaly or peritoneal signs.. neck s upple,, no thyromegaly,, no lymphadenopathy,. Psych N ormal Mood/Affect. Assessment: * Assessment: 1. S OB (shortness of breath) - R06.02 (Primary) 2 . I ntermittent chest pain - R07.9 Plan: * Treatment: Clinical Notes: Labs done relatively recently were consistent with his baseline. EKG today with chronic changes, reviewed with Dr. Faust. Recommend echo as noted and additional testing or follow-up based on those results. We did discuss the importance of going to the emergency department if any ofthe symptoms progress or if new concerns develop? Referral To: ?Reason:echo 2.?Intermittent chest pain?Imaging: Echocardiogram* * Procedure Codes: 9 3000 EKG WITH INTERP. * Follow Up: p ending results * * Sign off status: Completed true * Provider: NOA Peres Date: 11/16/2024 Generated for Jenaro jensen/Guero/Devorah on: 0 11/20/2024 08:12 AM EDT History and Physical Notes * HPI (History of Present Illness) Category Sub-Category Detail Notes Category Not es Cardiology shortness of breath chest pain palpitations dizziness leg edema fatigue cyanosis diaphoresis Examination Category Sub-Category Detail Notes Category Not es General Examination Heart: Regular Rate and Rhythm, no murmur, rubs or gallops Lungs: LCTAB, No wheezes, c rackles or rhonchi, Good air movement, Abdomen: Soft, NTND, BSNA, No organomegaly or peritoneal signs. Oral cavity: Moist membranes neck supple,, no thyromeg melinda,, no lymphadenopathy, General Pleasant and Coopera tive, NAD on RA, Psych Normal Mood/Affect Consultation Request Notes Referral Date Referring Provider Referred Provider Not es 11/16/2024 Chase Peterson echo
--- NOTE | 2024-11-20 | CA_ITS ---
APPROVED REPORT EXAM: Comprehensive 2D, Doppler, and color-flow Echocardiogram A Class Lineman: Ruthie Clements RT(R) Ht: 6 ft 1 in Wt: 247lbs BSA: 2.35 BP: 145/87 mmHg Indications: Shortness of air, CP 2D Dimensions LVEF (Hawk's) 53.80 % M: 52 - 72 LV Volume 136.30 mL M: 62 - 150 LV Volume Index 57.8 mL/m2 M: 34 - 74 LA Volume 35.00 mL LA Volume Index 14.83 mL/m2 (M/F) 16-34 EF AP4 54.30 % EF AP2 54.9 % EF BP 53.8 % GL Strain -15.8 % M-Mode Dimensions RVDd 2.82 cm (0.9-2.6) LA Diam 3.58 cm (1.9-4.0) LVDd 5.36 cm (3.5-5.7) LVDs 3.88 cm (3.5-5.7) IVSd 0.91 cm (0.6-1.1) PWd 1.03 cm (0.6-1.1) EF (Teich) 53.10% FS 27.60% EDV (Teich) 138.90 mL ESV (Teich) 65.10 mL LV Diastology E Decel Time 163 (160-240 msec) E/A Ratio 0.7 Mitral Valve MV E Max Camacho. 56.0 (40-130 cm/s) MV A Velocity 75.0 (40-130 cm/s) E/A Ratio 0.74 MV PHT 48.0 ms Left Ventricle The left ventricle is normal size. The left ventricular systolic function is normal. The left ventricular ejection fraction is within the normal range. There is increased LV wall thickness. There is normal LV segmental wall motion. The left ventricular diastolic function is normal. LVEF is 55%. Right Ventricle The right ventricle is normal size. The right ventricular systolic function is normal. Atria The left atrium size is normal. The right atrium size is normal. There is no Doppler evidence of interatrial shunt. Aortic Valve The aortic valve opens well. There is no aortic valvular stenosis. Mild aortic regurgitation is present. Mitral Valve The mitral valve is normal in structure. No evidence of mitral valve stenosis. Trace mitral valve regurgitation noted. Tricuspid Valve Tricuspid valve is grossly normal in structure and function. Trace tricuspid regurgitation. There is insufficient TR jet to estimate RVSP. Pulmonic Valve The pulmonary valve is normal in structure. Trace pulmonic regurgitation. Great Vessels The aortic root is normal in size. IVC is normal in size and collapses >50% with inspiration. Pericardium There is no pericardial effusion. Other Information Study Quality: Fair Conclusion Normal biventricular systolic function. Mild aortic regurgitation. Electronically signed by : Kayla Reed MD 11/23/2024 22:56:04
--- OUTSIDE RECORDS SUMMARY | 2024-11-20 08:12 | XMS_ITS | Clinical Summary ---
Author Organization Healthcare Address [address] [place] [address] Care Team Providers Care Trackman Name Role Phone Zach Faust MD Primary Care Provider + [phone] Allergies No known active allergies Medications ALPRAZolam (Xanax) 0.25 MG tablet Take 0.25 mg by mouth. 3 Active ascorbic acid (Vitamin C) 250 MG tablet Take 1 tablet by mouth 1 (one) time each day. Active benzonatate (Tessalon) 100 MG capsule benzonatate 100 mg capsule TAKE 1 CAPSULE BY MOUTH THREE TIMES DAILY NEEDED FOR COUGH Active cetirizine (ZyrTEC) 10 MG tablet cetirizine 10 mg tablet TAKE 1 TABLET BY MOUTH ONCE DAILY FOR 30 DAYS Active empagliflozin (Jardiance) 10 MG Jardiance 10 mg tablet TAKE 1 TABLET BY MOUTH ONCE DAILY Active fluticasone (Flonase) 50 MCG/ACT nasal spray fluticasone propionate 50 mcg/actuation nasal spray,suspension USE 1 SPRAY(S) IN EACH NOSTRIL ONCE DAILY Active guaiFENesin (Mucinex) 600 MG 12 hr tablet Take 2 tablets by mouth twice a day. 3 Active ibuprofen 800 MG tablet ibuprofen 800 mg tablet TAKE 1 TABLET BY MOUTH THREE TIMES DAILY NEEDED FOR MODERATE PAIN Active ipratropium-al buterol (Duo-Neb) 0.5-2.5 mg/3 mL nebulizer solution ipratropium 0.5 mg-albuterol 3 mg (2.5 mg base)/3 mL nebulization soln USE 3ML VIA NEBULIZER EVERY 6 HOURS NEEDED FOR SHORTNESS OF BREATH OR WHEEZING 3 Active levETIRAcetam (Keppra) 500 MG tablet levetiracetam 500 mg tablet TAKE 1 TABLET BY MOUTH EVERY 12 HOURS 3 Active levothyroxine (Euthyrox) 100 MCG tablet Euthyrox 100 mcg tablet TAKE 1 TABLET BY MOUTH IN THE MORNING FOR 30 DAYS 3 Active metFORMIN (Glucophage) 500 MG tablet 3 Active levothyroxine (Synthroid, Levoxyl) 112 MCG tablet TAKE 1 TABLET BY MOUTH ONCE DAILY FOR 30 DAYS 3 Active pantoprazole (Protonix) 40 MG EC tablet TAKE 1 BY MOUTH ONCE DAILY 3 Active promethazine-d extromethorpha n (Phenergan-DM) 6.25-15 MG/5ML syrup promethazine-DM 6.25 mg-15 mg/5 mL oral syrup TAKE 5 ML BY MOUTH EVERY 6 HOURS NEEDED FOR COUGH FOR 10 DAYS Active sertraline (Zoloft) 50 MG tablet sertraline 50 mg tablet TAKE 1 TABLET BY MOUTH ONCE DAILY FOR 30 DAYS 3 Active Vitamin A 3 MG (03501 UT) capsule Take 10,000 Units by mouth 1 (one) time each day. Active Active Problems No known active problems Social History Tobacco Use Types Packs/Day Years Used Date Smoking Tobacco: Never Smokeless Tobacco: Former Tobacco Cessation:Counseling Given: Not Answered Sex and Gender Information Value Date Recorded Sex Assigned at Not on file Legal Sex Male 1:45 PM EDT Gender Identity Not on file Sexual Orientation Not on file Last Filed Vital Signs Vital Sign Reading Time Taken Comments Blood Pressure 121/83 11/23/2022 10:56 AM EDT Pulse 98 11/23/2022 10:56 AM EDT Temperature - - Respiratory Rate - - Oxygen Saturation - - Inhaled Oxygen Concentration - - Weight 103 kg (226 lb) 11/23/2022 10:56 AM EDT Height 185.4 cm (6' 1 ) 11/23/2022 10:56 AM EDT Body Mass Index 29.82 11/23/2022 10:56 AM EDT Plan of Treatment Health Maintenance Due Date Last Done Comments [facility]-Depression Screening 1968 [facility]-/Child/Adol SDOH Screenings 1968 [facility]- SDOH Screenings 1986 [facility]-Adult SDOH Screenings 1986 [facility]-DTaP,Tdap,and Td Vaccine s (1 - Tdap) 09/18/1987 [facility]-Hepatitis B Vaccines (1 of 3 - 19+ 3-dose series) 09/18/1987 CT Colonography 2013 Colonoscopy 2013 FIT-DNA 2013 FIT 2013 FOBT 2013 Sigmoidoscopy 2013 [facility]-Colorectal Cancer Screening 2013 [facility]-Zoster Vaccines (2 of 2) 01/06/2023 11/11/2022 [id number] Vaccine ( season) 2024 04/29/2021, 09/16/2020, 08/19/2020 [facility]-Influenza Vaccine (Seaso n Ended) 2025 05/11/2022 [facility]-Diabetes: Hemoglobin A1C Discontinued 08/23/2022 [facility]-Pneumococcal Vaccine: 50 + Years Completed 11/11/2022 HPV Vaccines Aged Out No longer eligi ble based on patient's age to complete this topic [facility]-HIB Vaccines Aged Out No longer e ligible based on patient's age to complete this topic [facility]-Hepatitis A Vaccines Aged Out No longer eligible based on patient's age to complete this topic [facility]-IPV Vaccines Aged Out No longer e ligible based on patient's age to complete this topic [facility]-Rotavirus Vaccines Aged Out No lo nger eligible based on patient's age to complete this topic Insurance [employer]ET[employer] [facility] MEDICAID Care Teams Trackman Relationship Specialty Start Date End Date Zach Faust MD [address] [place] [address] PCP - General Internal Medicine 09/18/22
--- OUTSIDE RECORDS SUMMARY | 2024-11-20 08:12 | XMS_ITS | Data Portability ---
Author Organization [facility] ARTIE Arteaga GHENT CLOSED Address [address] [place] [address] Care Team Providers Care Slip Injector And Applicator Name Role Phone GLYNN LISE Referring Provider [phone] ANTOINETTE PIZARRO Primary Care Provider Assessment No assessment recorded. Plan of Treatment [...] By Organization Details Last Modified Time 09/20/2022 [id number] 1. Trach replace d in office today. 2. We will refer to tag marker at [facility] for their opinion and possible decannulation. [email or web address] Not available 09/20/2022 18:16:23 Extensive discussion with patient and his . Tracheostomy care demonstrated with patient and and both were able to duplicate cannulation with the tracheostomy tube. Trach hygiene was explained estephania Not available 09/20/2022 18:16:51 10/04/2022 [id number] 1. Discussed proper trach hygiene. 2. 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 Problems No Known Problems Procedures Surgical History Date Name Laterality Status Provider Name and Address Organization Details Recorded Time 09/21/19 23 Op Note completed JESSICA PENA MD [address] [place], [address], [facility] 09/20/2022 18:15:23 09/21/19 23 Laryngoscopy Flex completed JESSICA PENA MD [address] [place], [address], [facility] 09/20/2022 18:13:25 09/08/19 23 Tracheostomy inner cannula completed [facility] 09/20/2022 08:31:18 procedure on finger completed [facility] 09/20/2022 08:31:50 hernia repair completed [facility] 09/20/2022 08:31:57 Imaging Results None [...] Updated DateTime 09/20/2022 185.42 cm 29 kg/m2 90543.32 g 97.3 [degF] [facility] 09/20/2022 08:39:55 Date Recorded Body height Body mass index (BMI) Body weight Body temperature Heart rate Systolic blood pressure Diastolic blood pressure Provider Name and Address Organization Details Last Updated DateTime 185.42 cm 29.4 kg/m2 047969. 1 g 97.7 [degF] 92 /min 128 mm[Hg] 75 mm[Hg] [facility] 15:18:10 Social History None recorded. Functional Status Question Answer Note LastModified by Organization D etails LastModified Time What is your level of alcohol consumption? None Information not available 09/20/2022 Mental Status None recorded. Family History Relationship Description Onset Age of this Age Resolved Age Notes LastModified by Organization Details LastModified Time Sister Diabetes mellitus [email or web address] Not available 09/20 08:30:10 Sister Disorder of thyroid gland [email or web address] Not available 09/20 08:30:18 Medical History Condition Response Anxiety Disorder Y Thyroid Problems Y Diabetes Y Past Encounters Encounter ID Performer Location Encounter Start Date Encounter Closed Date Diagnosis/Indication Diagnosis SNOMED-CT Code Diagnosis ICD10 Code Diagnosis Note [id number] JESSICA PENA MD [facility] [address] [place] [address] 09/20/2022 08:10:20 09/20/2022 09:40:29 Tracheostomy present 495666614 Z93.0 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 [id number] JESSICA PENA MD [facility] [address] [place] [address] 10/04/2022 14:32:30 10/04/2022 16:01:58 Tracheostomy present 334290721 Z93.0 Placed by general surgery 09/07/2022 after 2 failed extubation attempts in ICU 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 Sensorineu ral hearing loss of bilateral ears 164173407 H90.3 Wears bilateral BTE's s ignificant Health Concerns Section Related Observation LastModified by Organization Detai ls LastModified Time None Recorded Concern Status LastModified by Organization Details LastModified Time None Recorded Advance Directives Directive None Recorded Payers Insurance Date Sequence Insurance Name Policy Number Policy Huff Covered Member ID Huff Member ID Guarantor Name 11/27/2022 1 [facility] (MEDICAID HMO) Lai Caballero [id number] Lai Caballero Notes Date Note Type Note [...] tube change and reassessment. [facility] [place] [address], [facility] 09/20/2022 18:19:23 10/04/2022 text/html Lai is a 52 year old male who visits us in office today to follow up on his trache. Lai states that he still gets coughing attacks occasionally but has otherwise been doing well since his last visit. [facility] [place], [address], [facility] 10/04/2022 18:14:30
--- OUTSIDE RECORDS SUMMARY | 2024-11-20 08:13 | XMS_ITS | Patient Health Record ---
Author Organization [facility] Address [address] [place] [address] Care Team Providers Care Merchandise Examiner Name Role Phone Chase Peterson Primary Care Provider CHASE PETERSON Unavailable Unavaila Zach Alegre Unavailable [phone] Migration, Provider Unavailable Unavailable Allergies No Known Allergies Results Component Value Reference Range Notes HEMOGLOBIN A1c (496) Reviewed date:12/13/2023 02:19:54 PM Interpretation: Performing Lab:ROBERTO, [facility] Alonsoe[address] [facility] CenterToluTwtuPH[address] Lai Daniels Notes/Report: FASTING: YES FASTING:YES NON-FASTING; NON-FASTING; NON-FASTING; NON-FASTING; NON-FAST HEMOGLOBIN A1c 7.9 <5.7 % of total Hgb For someone without known diabetes, a hemoglobin A1c value of 6.5% or greater indicates that they may have diabetes and this should be confirmed with a follow-up test. For someone with known diabetes, a value <7% indicates that their diabetes is well controlled and a value greater than or equal to 7% indicates suboptimal control. A1c targets should be individualized based on duration of diabetes, age, comorbid conditions, and other considerations. Currently, no consensus exists regarding use of hemoglobin A1c for diagnosis of diabetes for children. This test was performed on the [employer] christina c503 platform. Effective 08/07/23, a change in test platforms from the [employer] Order [employer]patcher to the Archie christina c503 may have shifted HbA1c results compared to historical results. Based on laboratory validation testing conducted at [facility], the Archie platform relative to the Velasquez platform had an average increase in HbA1c value of < or = 0.3%. This difference is within accepted variability established by the National Glycohemoglobin Standardization Program. Note that not all individuals will have had a shift in their results and direct comparisons between historical and current results for testing conducted on different platforms is not recommended. CBC (INCLUDES DIFF/PLT) (639 9) Reviewed date:12/13/2023 02:20:05 PM Interpretation: Performing Lab:ROBERTO [facility] Pvad2876 [facility], [place] VjqzQY[address] Lai Daniels Notes/Report: NON-FASTING; NON-FASTING; NON-FASTING; NON-FASTING; NON-FAST FASTING:YES FASTING: YES WHITE BLOOD CELL COUNT 9.0 3.8-10.8 Thousand/ uL RED BLOOD CELL COUNT 5.67 4.20-5.80 Million/uL HEMOGLOBIN 17.0 13.2-17.1 g/dL HEMATOCRIT 50.6 38.5-50.0 % MCV 89.2 80.0-100.0 fL MCH 30.0 27.0-33.0 pg MCHC 33.6 32.0-36.0 g/dL RDW 12.9 11.0-15.0 % PLATELET COUNT 332 140-400 Thousand/uL MPV 9.7 7.5-12.5 fL ABSOLUTE NEUTROPHILS 5580 3521-2830 cells/uL ABSOLUTE LYMPHOCYTES 2412 850-3900 cells/uL ABSOLUTE MONOCYTES 675 200-950 cells/uL ABSOLUTE EOSINOPHILS 252 15-500 cells/uL ABSOLUTE BASOPHILS 81 0-200 cells/uL NEUTROPHILS 62 LYMPHOCYTES 26.8 MONOCYTES 7.5 EOSINOPHILS 2.8 BASOPHILS 0.9 COMPREHENSIVE METABOLIC PANE L (07045) Reviewed date:12/13/2023 02:20:17 PM Interpretation: Performing Lab:ROBERTO [facility] Dxmi8435 [facility], [place] RcddWX[address] Lai Daniels Notes/Report: FASTING: YES FASTING:YES NON-FASTING; NON-FASTING; NON-FASTING; NON-FASTING; NON-FAST GLUCOSE 175 65-99 mg/dL Fasting reference interval For someone without known diabetes, a glucose value >125 mg/dL indicates that they may have diabetes and this should be confirmed with a follow-up test. UREA NITROGEN (BUN) 17 7-25 mg/dL CREATININE 1.07 0.70-1.30 mg/dL EGFR 82 > OR = 60 mL/min/1.73m2 BUN/CREATININE RATIO SEE NOTE: 6-22 (calc) Not Reported: BUN and Creatinine are within reference range. SODIUM 136 135-146 mmol/L POTASSIUM 4.4 3.5-5.3 mmol/L CHLORIDE 100 98-110 mmol/L CARBON DIOXIDE 25 20-32 mmol/L CALCIUM 9.5 8.6-10.3 mg/dL PROTEIN, TOTAL 7.8 6.1-8.1 g/dL ALBUMIN 4.4 3.6-5.1 g/dL GLOBULIN 3.4 1.9-3.7 g/dL (calc) ALBUMIN/GLOBULIN RATIO 1.3 1.0-2.5 (calc) BILIRUBIN, TOTAL 0.5 0.2-1.2 mg/dL ALKALINE PHOSPHATASE 129 35-144 U/L AST 16 10-35 U/L ALT 25 9-46 U/L LIPID PANEL, STANDARD (7600) Reviewed date:12/13/2023 02:19:30 PM Interpretation: Performing Lab:ROBERTO, [facility] Atyw6732 [facility], [facility], [facility] CenterWzsnRW[address] Lai Daniels Notes/Report: NON-FASTING; NON-FASTING; NON-FASTING; NON-FASTING; NON-FAST FASTING:YES FASTING: YES CHOLESTEROL, TOTAL 163 <200 mg/dL HDL CHOLESTEROL 26 > OR = 40 mg/dL TRIGLYCERIDES 402 <150 mg/dL If a non-fasting specimen was collected, consider repeat triglyceride testing on a fasting specimen if clinically indicated. Manpreet et al. J. of Clin. Lipidol. 2015;9:129-169. LDL-CHOLESTEROL LDL cholesterol not calculated. Triglyceride levels greater than 400 mg/dL invalidate calculated LDL results. Reference range: <100 Desirable range <100 mg/dL for primary prevention; <70 mg/dL for patients with CHD or diabetic patients with > or = 2 CHD risk factors. LDL-C is now calculated using the Ryne-Raymond calculation, which is a validated novel method providing better accuracy than the Friedewald equation in the estimation of LDL-C. Ryne SS et al. RIVERA. 2013;310(19): 8560-1453 (http://education.QuestDiag nostics.com/faq/OBF043) CHOL/HDLC RATIO 6.3 <5.0 (calc) NON HDL CHOLESTEROL 137 <130 mg/dL (calc) For patients with diabetes plus 1 major ASCVD risk factor, treating to a non-HDL-C goal of <100 mg/dL (LDL-C of <70 mg/dL) is considered a therapeutic option. Microalbumin (In-House) Reviewed date:12/13/2023 02:34:05 PM Interpretation: Performing Lab: Notes/Report: ALB 30mg CRE 100mg A:C <30mg TSH W/REFLEX TO FT4 (13861) Reviewed date:12/13/2023 02:19:44 PM Interpretation: Performing Lab:ROBERTO, [facility] Alonso[address]osv[address] Garcia, [place] AlonsoHewtLG[address] Lai Daniels Notes/Report: NON-FASTING; NON-FASTING; NON-FASTING; NON-FASTING; NON-FAST FASTING:YES FASTING: YES NON-FASTING; NON-FASTING; NON-FASTING; NON-FASTING; NON-FAST FASTING:YES FASTING: YES TSH W/REFLEX TO FT4 5.69 0.40-4.50 mIU/L T4, FREE 1.3 0.8-1.8 ng/dL M-Comprehensive Metabolic Pa myriam Reviewed date:03/20/2024 10:27:18 AM Interpretation: Performing Lab: Notes/Report: NA 139 136-145 mmol/L K 4.4 3.5-5.1 mmoL/L CL 100 98-107 mmol/L CO2 31 22.0-30.0 mmol/L GAP 12.4 5-15 mEq/L BUN 13 9-20 mg/dl CREATT 1.00 0.66-1.25 mg/dl GFRAA 94 >60 ML/MIN EGFR 78 >60 ml/min GLU 188 74-100 mg/dl CA 9.6 8.4-10.2 mg/dl BILIT 0.7 0.2-1.3 mg/dl AST 28 17-59 U/L ALT 42 12-78 U/L TP 7.8 6.3-8.2 g/dl ALB 4.5 3.5-5.0 g/dl GLOB 3.3 1.3-3.2 g/dL AGRATIO 1.4 1.1-1.8 ALP 129 38-126 U/L M-Hemoglobin A1C Reviewed date:03/20/2024 10:27:19 AM Interpretation: Performing Lab: Notes/Report: HGBA1C 7.7 4.0-6.0 % < 6% Non-Diabetic Level < 7% Controlled Diabetic Level > 8% Poorly Controlled Diabetic Level M-Lipid Panel Reviewed date:03/20/2024 10:27:19 AM Interpretation: Performing Lab: Notes/Report: Patient Fasting? Y TRIG 217 30-150 mg/dl CHOL 112 140-200 mg/dl DLDL 60.61 100-129 mg/dL VLDL 43 0-40 mg/dL HDL 20 40-60 mg/dl CHLHDL 5.6 1-3.5 M-Thyroid Stimulating Hormon e Reviewed date:03/20/2024 10:27:19 AM Interpretation: Performing Lab: Notes/Report: TSH 4.82 0.465-4.68 uIU/mL Ankle/Brachial Index--Segmen daysi BPs Reviewed date:09/24/2024 01:23:31 PM Interpretation: Performing Lab: Notes/Report: HEMOGLOBIN A1c (496) Reviewed date:09/10/2024 02:45:59 PM Interpretation: Performing Lab:CB, [facility] [address], [place] SanchezCfilUX[address] Lai Daniels Notes/Report: NON-FASTING; NON-FASTING; NON-FASTING; NON-FASTING; NON-FAST HEMOGLOBIN A1c 8.3 <5.7 % of total Hgb For someone without known diabetes, a hemoglobin A1c value of 6.5% or greater indicates that they may have diabetes and this should be confirmed with a follow-up test. For someone with known diabetes, a value <7% indicates that their diabetes is well controlled and a value greater than or equal to 7% indicates suboptimal control. A1c targets should be individualized based on duration of diabetes, age, comorbid conditions, and other considerations. Currently, no consensus exists regarding use of hemoglobin A1c for diagnosis of diabetes for children. Microalbumin (In-House) Reviewed date:09/10/2024 09:18:12 AM Interpretation: Performing Lab: Notes/Report: ALB 10mg CRE 50mg A:C <30mg THYROID PANEL WITH TSH (7444 ) Reviewed date:09/10/2024 02:45:59 PM Interpretation: Performing Lab:ROBERTO, [facility] [id number] [address] [facility], [place] AlonsoAvbkYT[address] Lai Daniels Notes/Report: NON-FASTING; NON-FASTING; NON-FASTING; NON-FASTING; NON-FAST T3 UPTAKE 31 22-35 % T4 (THYROXINE), TOTAL 10.0 4.9-10.5 mcg/dL FREE T4 INDEX (T7) 3.1 1.4-3.8 TSH 0.95 0.40-4.50 mIU/L LIPID PANEL, STANDARD (7600) Reviewed date:09/10/2024 02:45:59 PM Interpretation: Performing Lab:ROBERTO Qifang Yznw0200 [facility], [place] LqatNC[address] Lai Daniels Notes/Report: NON-FASTING; NON-FASTING; NON-FASTING; NON-FASTING; NON-FAST CHOLESTEROL, TOTAL 120 <200 mg/dL HDL CHOLESTEROL 26 > OR = 40 mg/dL TRIGLYCERIDES 346 <150 mg/dL If a non-fasting specimen was collected, consider repeat triglyceride testing on a fasting specimen if clinically indicated. Manpreet et al. J. of Clin. Lipidol. 2015;9:129-169. LDL-CHOLESTEROL 58 Reference range: <100 Desirable range <100 mg/dL for primary prevention; <70 mg/dL for patients with CHD or diabetic patients with > or = 2 CHD risk factors. LDL-C is now calculated using the Ryne-Andrade calculation, which is a validated novel method providing better accuracy than the Friedewald equation in the estimation of LDL-C. Ryne SS et al. RIVERA. 2013;310(19): 1838-7280 (http://education.Gewara.com/faq/WYC765) CHOL/HDLC RATIO 4.6 <5.0 (calc) NON HDL CHOLESTEROL 94 <130 mg/dL (calc) For patients with diabetes plus 1 major ASCVD risk factor, treating to a non-HDL-C goal of <100 mg/dL (LDL-C of <70 mg/dL) is considered a therapeutic option. COMPREHENSIVE METABOLIC PANE L (13380) Reviewed date:09/10/2024 02:45:59 PM Interpretation: Performing Lab:ROBERTO, [facility] [id number] [facility] Lai Daniels Notes/Report: NON-FASTING; NON-FASTING; NON-FASTING; NON-FASTING; NON-FAST GLUCOSE 209 65-99 mg/dL Fasting reference interval For someone without known diabetes, a glucose value >125 mg/dL indicates that they may have diabetes and this should be confirmed with a follow-up test. UREA NITROGEN (BUN) 14 7-25 mg/dL CREATININE 0.98 0.70-1.30 mg/dL EGFR 91 > OR = 60 mL/min/1.73m2 BUN/CREATININE RATIO SEE NOTE: 6-22 (calc) Not Reported: BUN and Creatinine are within reference range. SODIUM 137 135-146 mmol/L POTASSIUM 4.2 3.5-5.3 mmol/L CHLORIDE 102 98-110 mmol/L CARBON DIOXIDE 26 20-32 mmol/L CALCIUM 9.3 8.6-10.3 mg/dL PROTEIN, TOTAL 7.8 6.1-8.1 g/dL ALBUMIN 4.5 3.6-5.1 g/dL GLOBULIN 3.3 1.9-3.7 g/dL (calc) ALBUMIN/GLOBULIN RATIO 1.4 1.0-2.5 (calc) BILIRUBIN, TOTAL 0.6 0.2-1.2 mg/dL ALKALINE PHOSPHATASE 118 35-144 U/L AST 22 10-35 U/L ALT 35 9-46 U/L CBC (INCLUDES DIFF/PLT) (639 9) Reviewed date:09/10/2024 02:45:59 PM Interpretation: Performing Lab:CB, [facility] Kaec[address] [facility] Lai Daniels Notes/Report: NON-FASTING; NON-FASTING; NON-FASTING; NON-FASTING; NON-FAST WHITE BLOOD CELL COUNT 10.0 3.8-10.8 Thousand/ uL RED BLOOD CELL COUNT 5.91 4.20-5.80 Million/uL HEMOGLOBIN 17.8 13.2-17.1 g/dL HEMATOCRIT 52.6 38.5-50.0 % MCV 89.0 80.0-100.0 fL MCH 30.1 27.0-33.0 pg MCHC 33.8 32.0-36.0 g/dL For adults, a slight decrease in the calculated MCHC value (in the range of 30 to 32 g/dL) is most likely not clinically significant; however, it should be interpreted with caution in correlation with other red cell parameters and the patient's clinical condition. RDW 11.8 11.0-15.0 % PLATELET COUNT 318 140-400 Thousand/uL MPV 10.4 7.5-12.5 fL ABSOLUTE NEUTROPHILS 6290 3934-3448 cells/uL ABSOLUTE LYMPHOCYTES 2610 850-3900 cells/uL ABSOLUTE MONOCYTES 710 200-950 cells/uL ABSOLUTE EOSINOPHILS 320 15-500 cells/uL ABSOLUTE BASOPHILS 70 0-200 cells/uL NEUTROPHILS 62.9 LYMPHOCYTES 26.1 MONOCYTES 7.1 EOSINOPHILS 3.2 BASOPHILS 0.7 VITAMIN B12 (927) Reviewed date:09/10/2024 02:45:59 PM Interpretation: Performing Lab:ROBERTO, [facility] [address], [facility] CenterXhgiHB[address] Lai Daniels Notes/Report: NON-FASTING; NON-FASTING; NON-FASTING; NON-FASTING; NON-FAST VITAMIN B12 099 375-9468 pg/mL Reason For Referral Reason [place] [facility] Eval and Treat Diagnosis 1 Sensorineural hearin g loss, bilateral (H90.3) Referral Organization [facility] VELASQUEZ Referring Provider First Name Zach Referring Provider Last Name Christianne Referring Provider Speciality Internal M edicine Referred Provider Specialty Audiologists General Notes Vy Barrientos 2024 03:49:19 PM >sent to Hearing and Speech Referral Priority Routine Reason echo Diagnosis 1 SOB (shortness of br eath) (R06.02) Referral Organization [facility] PED ROBERT Referring Provider First Name Chase Referring Provider Last Name Kristen Referring Provider Speciality Family Pra ctice Referred Organization [facility] Referred Address [address], [place], [place],[address], Referred Provider Specialty Diagnostic R adiology General Notes Vy Barrientos 2024 10:13:08 AM >sent to [facility] to schedule Referral Priority Routine Medications Medication SIG (Take, Route, Frequency, Duration) Notes Start Date End Date Status Multivitamin 1 TAB ONCE A DAY *Please review and pick correct strength-formulati on from Medispan options. If intended option is not shown, discontinue and re-order from Quick Search* Active metFORMIN HCl 500 MG 1 tab(s) [...] restless legs for 30 days 02/08/2024 Active Diclofenac Sodium 1 % 2 gram applied topically 4 times a day for 30 days 12/12/2023 Active Rosuvastatin Calcium 10 MG 1 tab(s) orally once a day for 30 day(s) Active TEST STRIPS AND LANCETS NA ONCE A DAY NA ONCE A DAY for 30 DAYS E11.9 *Please review for potential replacement for e-prescription and drug interaction check* 07/20/2022 Active Jardiance 25 MG 1 tablet Orally Once a day for 90 days 09/28/2024 Active Levothyroxine Sodium 137 MCG 1 tab(s) orally once a day for 30 days 01/01/2023 Active hydrOXYzine HCl 25 MG 1 tab orally every morning and once a day as needed for anxiety for 90 days Active Ozempic (2 MG/DOSE) 8 MG/3ML inject 2mg Subcutaneous 09/10/2024 Active Flonase Allergy Relief 50 MCG/ACT as directed in each nostril once a day for 30 days 08/16/2022 Active GLUCOMETER E11.9 *Please review for potential replacement for e-prescription and drug interaction check* 07/20/2022 Active Xanax 0.5 MG 1 tab(s) orally twice a day as needed for anxiety 10/18/2022 Active Vitamin C 1000 MG 1 tab(s) orally once a day Active Sertraline HCl 50 MG 1 tablet Orally Once a day for 90 days 09/09/2024 Active Vitamin A 10,000 UNITS 1 TAB PO QD *Please review and pick correct strength-formulati on from [employer] options. If intended option is not shown, discontinue and re-order from Quick Search* Active Pantoprazole Sodium 40 MG Take 1 tablet by mouth once daily for 90 Active Immunizations Vaccine Route Administration Date Status Comme nts SHINGRIX Unknown 11/11/2022 Administered SHINGRIX Unknown 01/27/2023 Administered Prevnar PCV-20 (Pneumococcal conjugate 20) Unknown 11/11/2022 Administered FLUZONE 6MO - OLDER IM Intramuscular 04/18/2023 Administer ed Boostrix IM Intramuscular 09/09/2024 Administered Social History Tobacco Use: Social History Observation Description Date Details (start date - stop date) Never Smoker NA - NA Smoking: Question Answer Notes Are you a: nonsmoker Problems Problem Type SNOMED Code ICD Code Onset Dates Problem Status W/U Status Risk Notes Problem Autoimmune thyroiditis (01464628) Autoimmune thyroiditis (E06.3) Active confirmed Problem 579461166 Mixed hyperlipidemia (E78.2) Active confirmed Problem Encephalopathy (82140934) Encephalopathy, unspecified (G93.40) Active confirmed Problem 77860002 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 Problem 691961401 Sensorineural hearing loss, bilateral (H90.3) Active confirmed Problem Pemphigus erythematosus (09930603) Pemphigus erythematosus (L10.4) Active confirmed Problem Loose body in joint of shoulder region (371691698) Loose body in right shoulder (M24.011) Active confirmed Problem 77953534 Seizure (R56.9) Active confirmed Problem 87879583 RLS (restless legs syndrome) (G25.81) Active confirmed Problem 547986317 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) Active confirmed Problem 571521052 BMI 33.0-33.9,adult (Z68.33) Active confirmed Problem Hypothyroidism (92027719) Hypothyroidism, unspecified hypothyroidism type (E03.9) Active confirmed Problem 51615883 JOCELIN (generalized anxiety disorder) (F41.1) Active confirmed Problem Shoulder joint pain (432176268) Acute pain of right shoulder (M25.511) Active confirmed Problem Hyperglycemia due to type 2 diabetes mellitus (242330957855892) Diabetes mellitus with hyperglycemia (E11.65) Active confirmed Problem 339356707 Mild episode of recurrent major depressive disorder (F33.0) Active confirmed Problem Tear of right rotator cuff (2377008606027594 3) Rotator cuff tear, right (M75.101) Active confirmed Problem 778468586 Chronic GERD (K21.9) Active confirmed Problem 005402297 Type 2 diabetes mellitus without complication, without long-term current use of insulin (E11.9) Active confirmed Problem Localized, primary osteoarthritis of the shoulder region (944562184) Arthritis of right shoulder region (M19.011) Active confirmed Problem Laboratory test result abnormal (944005407) Abnormal laboratory test result (R89.9) Active confirmed Problem Retinitis pigmentosa (37363996) 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 Problem 008949293 Primary erectile dysfunction (N52.9) Active confirmed Vital Signs Heart Rate 98 /min 11/16/2024 Temperature 97.8 degrees Fahrenheit 11/16/2024 Oximetry 96 11/16/2024 Blood pressure diastolic 80 mm Hg 11/16/2024 Height 6ft 1in in 11/16/2024 Blood pressure systolic 116 mm Hg 11/16/2024 Weight 249.8 lbs 11/16/2024 BMI 32.95 kg/m2 11/16/2024 Encounters Encounter Location Date Provider Diagnosis [facility] [address] [place] [address] 09/05/2024 Provider Migration Chronic GERD K21.9 [facility] [address] [place] [address] 12/12/2023 Chase Peterson Type 2 diabetes mellitus without complication, without long-term current use of insulin E11.9 ; Hypothyroidism, unspecified hypothyroidism type E03.9 ; Chronic GERD K21.9 ; JOCELIN (generalized anxiety disorder) F41.1 and Pain, joint, shoulder, right M25.511 [facility] [place] [address] [place] [address] 01/01/2024 Zach Faust Situational mixed anxiety and depressive disorder F43.23 [facility] [place] [address] [place] [address] 02/08/2024 Chase Peterson RLS (restless legs syndrome) G25.81 [facility] [place] [address] [place] [address] 03/30/2024 Chase Peterson Type 2 diabetes mellitus without complication, without long-term current use of insulin E11.9 ; Hypothyroidism, unspecified hypothyroidism type E03.9 ; JOCELIN (generalized anxiety disorder) F41.1 and Mixed dyslipidemia E78.2 [facility] [place] [address] [place] [address] 09/09/2024 Zach Faust Type 2 diabetes mellitus without complication, without long-term current use of insulin E11.9 ; Peripheral neuropathic pain M79.2 ; Encephalopathy, unspecified G93.40 ; Pigmentary retinal dystrophy H35.52 ; Mixed hyperlipidemia E78.2 ; Primary erectile dysfunction N52.9 ; Pain in right leg M79.604 ; Pain in left leg M79.605 ; Encounter for immunization Z23 ; Mild episode of recurrent major depressive disorder F33.0 and Routine medical exam Z00.00 [facility] [place] [address] [place] [address] 09/28/2024 Chase Kristen Type 2 diabetes mellitus without complication, without long-term current use of insulin E11.9 ; JOCELIN (generalized anxiety disorder) F41.1 ; Hypothyroidism, unspecified hypothyroidism type E03.9 and RLS (restless legs syndrome) G25.81 [facility] [place] [address] [facility] [address] [place] [address] 11/16/2024 Chase Kristen SOB (shortness of breath) R06.02 and Intermittent chest pain R07.9 [facility] [address] [address] 12/09/2023 Chase Kristen [facility] [address] [address] 12/13/2023 Chase Kristen [facility] [place] [address] [place] [address] 12/13/2023 Chase Kristen [facility] [place] [address] [facility] [address] [place] [address] 01/06/2024 Chase Kristen [facility] [address] [place] [address] 01/14/2024 Chase Kristen [facility] [place] [address] [facility] [address] [place] [address] 03/19/2024 Chase Kristen Hypothyroidism, unspecified hypothyroidism type E03.9 ; Autoimmune thyroiditis E06.3 ; Type 2 diabetes mellitus without complication, without long-term current use of insulin E11.9 and Mixed dyslipidemia E78.2 [facility] [address] [place] [address] 04/20/2024 Chase Peterson Chronic GERD K21.9 [facility] [address] [facility] [address] [place], [place] [address] 06/30/2024 Chase Peterson [facility] [address] [place] [address] 08/10/2024 [facility] [address] [place] [address] 09/10/2024 Chase Peterson Assessments Encounter Date Diagnosis (ICD Code) Assessment Notes Treatment Notes Treatment Clinical Notes Section Notes 12/12/2023 Hypothyroidism, unspecified hypothyroidism type (ICD-10 - E03.9) 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 Patient does not think he needs sertraline and is having side effects. Uses lorazepam/Xanax very rarely. Will stop sertraline, follow-up as needed and as regularly scheduled. 02/08/2024 RLS (restless legs syndrome) (ICD-10 - G25.81) Discussed possible etiology of symptoms. Encouraged to scale back his caffeine intake and certainly avoid any in the evening. Also discussed that some antihistamines can have this effect and I encouraged him to stop his nighttime dose of hydroxyzine. Low-dose Requip recommended in the evening as needed. He already has follow-up again in about 4 weeks, return sooner with any concerns. 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 Has been following with endocrinology. We discussed that a lot of his problems would contribute to ED. Not sure if he would be a good candidate for testosterone. Will check neuropathy labs as noted and I will follow these personally 09/09/2024 Peripheral neuropathic pain (ICD-10 - M79.2) Continue current therapy, check labs 09/28/2024 JOCELIN (generalized anxiety disorder) (ICD-10 - F41.1) immproved on current regimen, continue to minimize use of xanax 09/28/2024 Type 2 diabetes mellitus without complication, without long-term current use of insulin (ICD-10 - E11.9) Rec increase Jardiance to 25mg daily, FU with endo again as scheduled and with us in 6 months. Continue CC diet and exercise as tolerated. 11/16/2024 SOB (shortness of breath) (ICD-10 - [...] 11/16/2024 Intermittent chest pain (ICD-10 - R07.9) 09/28/2024 Hypothyroidism, unspecified hypothyroidism type (ICD-10 - E03.9) per endocrine 09/09/2024 Encephalopathy, unspecified (ICD-10 - G93.40) 03/30/2024 JOCELIN (generalized anxiety disorder) (ICD-10 - F41.1) improved overall, no changes recommended 12/12/2023 Chronic GERD (ICD-10 - K21.9) continue PPI, H2 charo 03/19/2024 Type 2 diabetes mellitus without complication, without long-term current use of insulin (ICD-10 - E11.9) 12/12/2023 JOCELIN (generalized anxiety disorder) (ICD-10 - F41.1) continue sertraline, occasional use of xanax 03/19/2024 Mixed dyslipidemia (ICD-10 - E78.2) 09/09/2024 Pigmentary retinal dystrophy (ICD-10 - H35.52) Follows with ophthalmology for eye exam 03/30/2024 Mixed dyslipidemia (ICD-10 - E78.2) improving on rosuvastatin, LFT normal 09/28/2024 RLS (restless legs syndrome) (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 09/09/2024 Pain in right leg (ICD-10 - M79.604) Will get ABIs to make sure we do not have PAD problems 09/09/2024 Pain in left leg (ICD-10 - M79.605) 09/09/2024 Encounter for immunization (ICD-10 - Z23) 09/09/2024 Mild episode of recurrent major depressive disorder (ICD-10 - F33.0) 09/09/2024 Routine medical exam (ICD-10 - Z00.00) Patient is up-to-date with colon screening with Cologuard. No recent falls. Good functional status. notes that she is having some more depression symptoms. Has a history of major depression, probable relapse, see notes below about starting Zoloft. HRA reviewed. Up-to-date with vaccines except needs Tdap today. Non-smoker. 03/30/2024 Other encouraged flu vaccination which he will consider 09/28/2024 Other Plan Of Treatment Pending Test Test Name Order Date Echocardiogram 11/16/2024 F-Rwhy-Idsupzmjxmpon Antibody 12/23/2022 Next Appt Details Provider Name:Chase tan, 03/29/2025 04:15:00 PM, [address], [address], [place], [address], Insurance Providers Payer Name Payer Address Payer Phone Subscriber Number Group Number Insured Name Patient Relationship to Insured Coverage Start Date Coverage End Date [employer] DUAL [address] [address] [place] [address] [id number] Lai Caballero Self - patient is the insured Medications Administered Medication Instructions Date of Administration Dosage Notes Dexamethasone 4mg Injection 08/16/2022 4 mg Medical (General) History Medical History History ICD Code Type 2 diabetes, diagnosed 2022, A1c 11% 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
== END 2024-11-20 23:59 | disposition home or self-care (01) ==
LOC: RT 08:09
PROVIDERS: PCP Internal Medicine Adolescent Medicine; Visit Provider Nurse Practitioner Family
DX: I35.1 Nonrheumatic aortic (valve) insufficiency (principal)
CPT/HCPCS: 93306

== ENCOUNTER 2025-01-21 11:55 | Outpatient (CLI) | payer MEDICARE, MEDICAID, SELFPAY ==
--- OUTSIDE RECORDS SUMMARY | 2023-05-09 14:38 | XMS_ITS | Encounter Summary ---
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 Procedures US Thyroid DukeJuan J MD [address] [address] Phone: tel: fax: [facility] [address] [address] Phone: tel: fax: Referral ID Status Reason Start Date Expiration Date Visits Re quested Visits Authorized [id number] Closed 05/09/2023 05/08/2024 1 1 Encounter Details Date Type Department Care Team (Late st Contact Info) Description 05/09/2023 1:38 PM EST Hospital Encounter [facility] [address] [address] Social History Tobacco Use Types Packs/Day Years Used Date Smoking Tobacco: Never Passive Smoke Exposure: Never Alcohol Use Standard Drinks/Week Comments Not [...] GED or equivalent No 09/01/2022 Preferred Language Telugu 09/01/2022 PHQ-2 Answer Date Recorded Retired PHQ-9: [...] Care Team (Late st Contact Info) Description 02/19/2025 1:45 PM EDT Office Visit [facility] [address] [facility] [address] [place] [phone] Juna J Duke MD [address] [facility] [address] [place] [address] 11/01/2025 1:00 PM EDT Office Visit [facility] [address] [facility] [address] [place] [phone] Aracely Gil MD [address] [facility] [address] [place] [phone] documented as of this encounter Procedures Procedure [...] on filedocumented in this encounter Care Teams Cash Applications Analyst Relationship Specialty Start Date End Date Zach Faust MD [address] [facility] [address] [place] [address] PCP - General Adolescent Medicine 08/23/22 documented as of this encounter
--- OUTSIDE RECORDS SUMMARY | 2025-01-06 05:45 | XMS_ITS ---
Author Organization [facility] Address [address] [place] [address] Care Team Providers Care Shim Plug Cutter Name Role Phone Chase Peterson Primary Care Provider [phone] CHASE PETERSON Unavailable Unavaila Zach Alegre Unavailable [phone] Allergies No Known Allergies Results Component Value Reference Range Notes THYROID PANEL WITH TSH (7444 ) Reviewed date:01/09/2025 11:15:57 AM Interpretation: Performing Lab:[facility] [id number] [facility] HospitalLmozYI[address] Lai Daniels Notes/Report: NON-FASTING; NON-FASTING; NON-FASTING; NON-FASTING; NON-FAST T3 UPTAKE 30 22-35 % T4 (THYROXINE), TOTAL 8.3 4.9-10.5 mcg/dL FREE T4 INDEX (T7) 2.5 1.4-3.8 TSH 1.68 0.40-4.50 mIU/L BASIC METABOLIC PANEL (93592 ) Reviewed date:01/09/2025 11:16:48 AM Interpretation: Performing Lab:[facility] [id number], [facility] HospitalCgrjNJ[address] Lai Daniels Notes/Report: NON-FASTING; NON-FASTING; NON-FASTING; NON-FASTING; NON-FAST GLUCOSE 159 65-99 mg/dL Fasting reference interval For someone without known diabetes, a glucose value >125 mg/dL indicates that they may have diabetes and this should be confirmed with a follow-up test. UREA NITROGEN (BUN) 17 7-25 mg/dL CREATININE 1.01 0.70-1.30 mg/dL EGFR 87 > OR = 60 mL/min/1.73m2 BUN/CREATININE RATIO SEE NOTE: 6-22 (calc) Not Reported: BUN and Creatinine are within reference range. SODIUM 137 135-146 mmol/L POTASSIUM 4.6 3.5-5.3 mmol/L CHLORIDE 101 98-110 mmol/L CARBON DIOXIDE 28 20-32 mmol/L CALCIUM 9.8 8.6-10.3 mg/dL MAGNESIUM (622) Reviewed date:01/09/2025 11:16:37 AM Interpretation: Performing Lab:[facility] [id number], AzumioRwwxIC[address] Lai Daniels Notes/Report: NON-FASTING; NON-FASTING; NON-FASTING; NON-FASTING; NON-FAST MAGNESIUM 2.3 1.5-2.5 mg/dL HEMOGLOBIN A1c (496) Reviewed date:01/09/2025 11:16:24 AM Interpretation: Performing Lab:[facility] [address], CodelearnYzkfCE[address] Lai Daniels Notes/Report: NON-FASTING; NON-FASTING; NON-FASTING; NON-FASTING; NON-FAST HEMOGLOBIN A1c 7.9 <5.7 % For someone without known diabetes, a hemoglobin [...] A1c for diagnosis of diabetes for children. TESTOSTERONE, TOTAL, MALES ( ADULT), IA (873) Reviewed date:01/09/2025 11:15:46 AM Interpretation: Performing Lab:[facility], [facility] [address], Media Time ConseilMbqhWC[address] Lai Daniels Notes/Report: NON-FASTING; NON-FASTING; NON-FASTING; NON-FASTING; NON-FAST TESTOSTERONE, TOTAL, MALES (ADULT), IA 591 250-827 ng/dL Reason For Referral Reason [facility] [place] Diagnosis 1 Primary erectile dys function (N52.9) Referral Organization [facility] Referring Provider First Name Zach Referring Provider Last Name Christianne Referring Provider Speciality Internal M edicine Referred Organization [facility] Referred Address [address] [place],[address],[place] Referred Provider Specialty Urology General Notes FloydVy 2024 12:12:17 PM >sent referral through [facility] portal_ They will call patient to schedule appt for [facility] Dr Fraga Referral Priority Routine REASON FOR VISIT Discuss Toxins in his body Medications Medication SIG (Take, Route, Frequency, Duration) Notes Start Date End Date Status Jardiance 25 MG 1 tablet Orally Once a day; Duration: 90 days 09/28/2024 Active Ozempic (2 MG/DOSE) 8 MG/3ML inject 2mg Subcutaneous 09/10/2024 Acti ve hydrOXYzine HCl 25 MG 1 tab orally every morning and once a day as needed for anxiety; Duration: 90 days Active Xanax 0.5 MG 1 tab(s) orally twic e a day as needed for anxiety; Duration: 30 days 11/27/2024 Active Rosuvastatin Calcium 10 MG 1 tab(s) oral ly once a day; Duration: 30 day(s) Active Sertraline HCl 50 MG 1 tablet Orally Onc e a day; Duration: 90 days 09/09/2024 Active Pantoprazole Sodium 40 MG Take 1 tablet by mouth once daily; Duration: 90 Active metFORMIN HCl 500 MG 1 tab(s) orally onc e a day; Duration: 90 days Active Allergy Relief (Cetirizine) 10 MG 1 tab(s) orally once a day; Duration: 30 days Active Famotidine 40 MG 1 tab(s) orally once a day (at bedtime); Duration: 90 days Active Levothyroxine Sodium 137 MCG 1 tab(s) orally once a day; Duration: 30 days 01/01/2023 Active Flonase Allergy Relief 50 MCG/ACT as directed in each nostril once a day; Duration: 30 days 08/16/2022 Active rOPINIRole HCl 0.25 MG 1 tab(s) orally a t night as needed for restless legs; Duration: 30 days 02/08/2024 Active Diclofenac Sodium 1 % 2 gram applied top ically 4 times a day; Duration: 30 days 12/12/2023 Active TEST STRIPS AND LANCETS NA ONCE A DAY NA ONCE A DAY; Duration: 30 DAYS 07/20/2022 Active GLUCOMETER 07/20/2022 Active Vitamin C 1000 MG 1 tab(s) orally once a day Active Vitamin A 10,000 UNITS 1 TAB PO QD Active Multivitamin 1 TAB ONCE A DAY Active Social History Tobacco Use: Social History Observation Description Date Details (start date - stop date) Never Smoker NA - NA Smoking: Question Answer Notes Are you a: nonsmoker Problems Problem Type SNOMED Code ICD Code Onset Dates Problem Status W/U Status Risk Notes Problem Supraventricular premature beats (43806908) PAC (premature atrial contraction) (I49.1) Active confirmed Problem Ventricular premature complex (disorder) (292900279) PVC (premature ventricular contraction) (I49.3) Active confirmed Vital Signs Temperature 97.6 degrees Fahrenheit 01/07/20 25 Heart Rate 98 /min 01/06/2025 Blood pressure systolic 136 mm Hg 01/07/20 25 Blood pressure diastolic 84 mm Hg 025 Height 6ft 1in in 01/06/2025 Weight 250.6 lbs 01/06/2025 BMI 33.06 kg/m2 01/06/2025 Encounters Encounter Location Date Provider Diagnosis [facility] [address] [facility] [address] [place] [address] 01/06/2025 Zach Faust PAC (premature atria l contraction) I49.1 ; PVC (premature ventricular contraction) I49.3 ; Primary erectile dysfunction N52.9 and Diabetes mellitus with hyperglycemia E11.65 Assessments Encounter Date Diagnosis (ICD Code) Assessment Notes Treatment Notes Treatment Clinical Notes Section Notes 01/06/2025 PAC (premature atrial contraction) (ICD-10 - I49.1) Premature beats heard -> will order EKG + mag + BMP + TSH -if significant PAC/PVC burden on EKG, can consider holter monitor placment EKG reviewed. EKG normal sinus, nonactionable , PAC burden is not extensive at this point 01/06/2025 PVC (premature ventricular contraction) (ICD-10 - I49.3) 01/06/2025 Primary erectile dysfunction (ICD-10 - N52.9) Patient doesnt want a pill that he has to take each time to get erection, wants something more permanent -will check Testosterone and offer for urology referal today 01/06/2025 Diabetes mellitus with hyperglycemia (ICD-10 - E11.65) Repeat A1c today, unsure when his next endocrine appointment is Plan Of Treatment Treatment Notes Assessment Notes PAC (premature atrial contraction) Premature beats heard -> will order EKG + mag + BMP + TSH -if significant PAC/PVC burden on EKG, can consider holter monitor placment Primary erectile dysfunction Patient doesnt want a pill that he has to take each time to get erection, wants something more permanent -will check Testosterone and offer for urology referal today Diabetes mellitus with hyperglycemia Rep eat A1c today, unsure when his next endocrine appointment is Referrals Referral Date Details 01/06/2025 01/06/2025, [facility] [place], [address] [place] [address], [phone], Next Appt Details Follow Up: prn, Reason: Provider Name:Chase Pa ce, 03/29/2025 04:15:00 PM, [address], [address], [place], [address], Progress Notes * Lai CABALLERODOB: [birth year] (54 yo M)Acc No.[id number]:01/06/2025 Progress Notes Patient: Lai ROSALES Provider: Salvatore Faust MD :1970 A ge:54 Y S ex:Male Date:01/06/2025 Address:[address] [place], [place] [address]MitulD.W. [facility]ITAL[facility]-[id number] Pcp:Chase Peterson Subjective: * Chief Complaints: * 1 . Discuss Toxins in his body. * HPI: g en: Has issues with erections. Wants to help detox kidneys. Hes able to have an erection, he just has loss of erections before he is finished. Has morning erections, however doesnt last as long. Wants to last 40-50 minutes. No loss of sexual desires. Has had this problem for as long as he remembers. Still has same attractive level towards his . Wants A1c checked, doesnt know when next endocrine appointment is. Was eating 4- 5 yajaira sized candy bars a week, has cut this out. Has herbal recipes to get rid of Toxins . * Medical History: T ype 2 [...] aunt: , dementia. S iblings: alive. C hilen: alive. 1 sister(s) - healthy. 3 son(s) - healthy. . * Social History: S moking A re you a: n onsmoker. R ecreational drug use: no. Exercise: yes. Home smoke detector use: yes. Caffeine: yes, frequency: daily. Living Will: No. Alcohol: socially. Sexually active: yes. Travel outside [place]: no. * Medications: T aking Multivitamin 1 TAB ONCE A DAY , Taking Vitamin A 10,000 UNITS 1 TAB PO QD , Taking Vitamin C 1000 MG Tablet 1 tab(s) orally once a day , Taking GLUCOMETER , Taking Flonase Allergy Relief 50 MCG/ACT Suspension as directed in each nostril once a day , Taking Levothyroxine Sodium 137 MCG Tablet 1 tab(s) orally once a day , Taking TEST STRIPS AND LANCETS NA PER INSURANCE COVERAGE WITH GLUCOMETER ONCE A DAY NA ONCE A DAY , Taking Diclofenac Sodium 1 % Gel 2 [...] Solution Pen-injector inject 2mg Subcutaneous , Taking Jardiance 25 MG Tablet 1 tablet Orally Once a day , Taking Rosuvastatin Calcium 10 MG Tablet 1 tab(s) orally once a day , Taking Xanax 0.5 MG Tablet 1 tab(s) orally twice a day as needed for anxiety , Taking hydrOXYzine HCl 25 MG Tablet 1 tab orally every morning and once a day as needed for anxiety , Medication List reviewed and reconciled with the patient * Allergies: N .K.D.A. Objective: * Vitals: N urse: jl, Pain: 0, Temp: 97.6, RR: 20, HR: 98, BP: 136/84, Ht: 6ft 1in, Wt: 250.6, BMI:33.06. * Examination: G eneral Examination: General P leasant and Cooperative, NAD on RA,. Heart: I rregular Rhythm. Premature beats. No murmurs heard.. Lungs: L CTAB, No wheezes, crackles or rhonchi, Good air movement,. Abdomen: S oft, NTND, BSNA, No organomegaly or peritoneal signs.. Extremities: n ormal ROM,, no clubbing, no edema,, no foot lesions,. Assessment: * Assessment: 1. P AC (premature atrial contraction) - I49.1 (Primary) 2 . P VC (premature ventricular contraction) - I49.3 3 . P rimary erectile dysfunction - N52.9? 4. D iabetes mellitus with hyperglycemia - E11.65 Plan: * Treatment: Value Reference Range T 3 UPTAKE 30 22-35 - % * T 4 (THYROXINE), TOTAL 8.3 4.9-10.5 - mcg/dL * F REE T4 INDEX (T7) 2.5 1.4-3.8 - * T SH 1.68 0.40-4.50 - mIU/L * This lab was reviewed by Brianna Ruvalcaba on 01/09/2025 at 11:15 AM EDT ?LAB: BASIC METABOLIC PANEL (22133)* Value Reference Range G LUCOSE 159 H 65-99 - mg/dL * U MARU NITROGEN (BUN) 17 7-25 - mg/dL * C REATININE 1.01 0.70-1.30 - mg/dL * B UN/CREATININE RATIO SEE NOTE: 11-22 - (calc) * S ODIUM 137 135-146 - mmol/L * P OTASSIUM 4.6 3.5-5.3 - mmol/L * C HLORIDE 101 98-110 - mmol/L * C ARBON DIOXIDE 28 20-32 - mmol/L * C ALCIUM 9.8 8.6-10.3 - mg/dL * E GFR 87 > OR = 60 - mL/min/1 .73m2 * This lab was reviewed by Brianna Ruvalcaba on 01/09/2025 at 11:16 AM EDT ?LAB: MAGNESIUM (622)* Value Reference Range M AGNESIUM 2.3 1.5-2.5 - mg/dL * This lab was reviewed by Brianna Ruvalcaba on 01/09/2025 at 11:16 AM EDT ?LAB: HEMOGLOBIN A1c (496)* Value Reference Range H EMOGLOBIN A1c 7.9 H <5.7 - % * This lab was reviewed by Brianna Ruvalcaba on 01/09/2025 at 11:16 AM EDT ?LAB: TESTOSTERONE, TOTAL, MALES (ADULT), IA (873)* Value Reference Range T ESTOSTERONE, TOTAL, 591 250-827 - ng/dL * This lab was reviewed by Brianna Ruvalcaba on 01/09/2025 at 11:15 AM EDT Notes: Premature beats heard -> will order EKG + mag + BMP + TSH -if significant PAC/PVC burden on EKG, can consider holter monitor placment?? Clinical Notes: EKG reviewed. EKG normal sinus, nonactionable, PAC burden is not extensive at this point??2.?PVC (premature ventricular contraction)?LAB: THYROID PANEL WITH TSH (6438)* Value Reference Range T 3 UPTAKE 30 22-35 - % * T 4 (THYROXINE), TOTAL 8.3 4.9-10.5 - mcg/dL * F REE T4 INDEX (T7) 2.5 1.4-3.8 - * T SH 1.68 0.40-4.50 - mIU/L * This lab was reviewed by Brianna Ruvalcaba on 01/09/2025 at 11:15 AM EDT ?LAB: BASIC METABOLIC PANEL (18252)* Value Reference Range G LUCOSE 159 H 65-99 - mg/dL * U MARU NITROGEN (BUN) 17 7-25 - mg/dL * C REATININE 1.01 0.70-1.30 - mg/dL * B UN/CREATININE RATIO SEE NOTE: 11-22 - (calc) * S ODIUM 137 135-146 - mmol/L * P OTASSIUM 4.6 3.5-5.3 - mmol/L * C HLORIDE 101 98-110 - mmol/L * C ARBON DIOXIDE 28 20-32 - mmol/L * C ALCIUM 9.8 8.6-10.3 - mg/dL * E GFR 87 > OR = 60 - mL/min/1 .73m2 * This lab was reviewed by Brianna Ruvalcaba on 01/09/2025 at 11:16 AM EDT ?LAB: MAGNESIUM (622)* Value Reference Range M AGNESIUM 2.3 1.5-2.5 - mg/dL * This lab was reviewed by Brianna Ruvalcaba on 01/09/2025 at 11:16 AM EDT ?LAB: HEMOGLOBIN A1c (496)* Value Reference Range H EMOGLOBIN A1c 7.9 H <5.7 - % * This lab was reviewed by Brianna Ruvalcaba on 01/09/2025 at 11:16 AM EDT ?LAB: TESTOSTERONE, TOTAL, MALES (ADULT), IA (873)* Value Reference Range T ESTOSTERONE, TOTAL, 591 250-827 - ng/dL * This lab was reviewed by Brianna Ruvalcaba on 01/09/2025 at 11:15 AM EDT 3.?Primary erectile dysfunction?LAB: THYROID PANEL WITH TSH (3044)* Value Reference Range T 3 UPTAKE 30 22-35 - % * T 4 (THYROXINE), TOTAL 8.3 4.9-10.5 - mcg/dL * F REE T4 INDEX (T7) 2.5 1.4-3.8 - * T SH 1.68 0.40-4.50 - mIU/L * This lab was reviewed by Brianna Ruvalcaba on 01/09/2025 at 11:15 AM EDT ?LAB: BASIC METABOLIC PANEL (95332)* Value Reference Range G LUCOSE 159 H 65-99 - mg/dL * U MARU NITROGEN (BUN) 17 7-25 - mg/dL * C REATININE 1.01 0.70-1.30 - mg/dL * B UN/CREATININE RATIO SEE NOTE: 11-22 - (calc) * S ODIUM 137 135-146 - mmol/L * P OTASSIUM 4.6 3.5-5.3 - mmol/L * C HLORIDE 101 98-110 - mmol/L * C ARBON DIOXIDE 28 20-32 - mmol/L * C ALCIUM 9.8 8.6-10.3 - mg/dL * E GFR 87 > OR = 60 - mL/min/1 .73m2 * This lab was reviewed by Brianna Ruvalcaba on 01/09/2025 at 11:16 AM EDT ?LAB: MAGNESIUM (622)* Value Reference Range M AGNESIUM 2.3 1.5-2.5 - mg/dL * This lab was reviewed by Brianna Ruvalcaba on 01/09/2025 at 11:16 AM EDT ?LAB: HEMOGLOBIN A1c (496)* Value Reference Range H EMOGLOBIN A1c 7.9 H <5.7 - % * This lab was reviewed by Brianna Ruvalcaba on 01/09/2025 at 11:16 AM EDT ?LAB: TESTOSTERONE, TOTAL, MALES (ADULT), IA (873)* Value Reference Range T ESTOSTERONE, TOTAL, 591 250-827 - ng/dL * This lab was reviewed by Brianna Ruvalcaba on 01/09/2025 at 11:15 AM EDT Notes: Patient doesnt want a pill that he has to take each time to get erection, wants something more permanent -will check Testosterone and offer for urology referal today? Referral To: ?Reason:[facility] [place] 4.?Diabetes mellitus with hyperglycemia?LAB: THYROID PANEL WITH TSH (7444)* Value Reference Range T 3 UPTAKE 30 22-35 - % * T 4 (THYROXINE), TOTAL 8.3 4.9-10.5 - mcg/dL * F REE T4 INDEX (T7) 2.5 1.4-3.8 - * T SH 1.68 0.40-4.50 - mIU/L * This lab was reviewed by Brianna Ruvalcaba on 01/09/2025 at 11:15 AM EDT ?LAB: BASIC METABOLIC PANEL (56340)* Value Reference Range G LUCOSE 159 H 65-99 - mg/dL * U MARU NITROGEN (BUN) 17 7-25 - mg/dL * C REATININE 1.01 0.70-1.30 - mg/dL * B UN/CREATININE RATIO SEE NOTE: 11-22 - (calc) * S ODIUM 137 135-146 - mmol/L * P OTASSIUM 4.6 3.5-5.3 - mmol/L * C HLORIDE 101 98-110 - mmol/L * C ARBON DIOXIDE 28 20-32 - mmol/L * C ALCIUM 9.8 8.6-10.3 - mg/dL * E GFR 87 > OR = 60 - mL/min/1 .73m2 * This lab was reviewed by Biranna Ruvalcaba on 01/09/2025 at 11:16 AM EDT ?LAB: MAGNESIUM (622)* Value Reference Range M AGNESIUM 2.3 1.5-2.5 - mg/dL * This lab was reviewed by Brianna Ruvalcaba on 01/09/2025 at 11:16 AM EDT ?LAB: HEMOGLOBIN A1c (496)* Value Reference Range H EMOGLOBIN A1c 7.9 H <5.7 - % * This lab was reviewed by Brianna Ruvalcaba on 01/09/2025 at 11:16 AM EDT ?LAB: TESTOSTERONE, TOTAL, MALES (ADULT), IA (873)* Value Reference Range T ESTOSTERONE, TOTAL, 591 250-827 - ng/dL * This lab was reviewed by Brianna Ruvalcaba on 01/09/2025 at 11:15 AM EDT Notes: Repeat A1c today, unsure when his next endocrine appointment is?? * Follow Up: p rn * * Sign off status: Completed true * Provider: Salvatore Faust MD Date: 0 01/06/2025 Generated for Changi mikey/Ameeg/eTransmitting on: 0 01/21/2025 11:57 AM EDT History and Physical Notes * HPI (History of Present Illness) Category Sub-Category Detail Notes Category Not es gen Has issues with erections. Wants to help detox kidneys. Hes able to have an erection, he just has loss of erections before he is finished. Has morning erections, however doesnt last as long. Wants to last 40-50 minutes. No loss of sexual desires. Has had this problem for as long as he remembers. Still has same attractive level towards his . Wants A1c checked, doesnt know when next endocrine appointment is. Was eating 4-5 yajaira sized candy bars a week, has cut this out. Has herbal recipes to get rid of Toxins Examination Category Sub-Category Detail Notes Category Not es General Examination Heart: Irregular Rh ythm. Premature beats. No murmurs heard. Lungs: LCTAB, No wheezes, c rackles or rhonchi, Good air movement, Abdomen: Soft, NTND, BSNA, No organomegaly or peritoneal signs. Extremities: normal ROM,, no club ja, no edema,, no foot lesions, General Pleasant and Coopera tive, NAD on RA, Consultation Request Notes Referral Date Referring Provider Referred Provider Not es 01/06/2025 Zach Faust , [facility] [place]
--- OUTSIDE RECORDS SUMMARY | 2025-01-21 11:57 | XMS_ITS | Encounter Summary ---
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 Never true 09/02/19 Ran Out of Food in the Last [...] GED or equivalent No 09/01/2022 Preferred Language Yoruba 09/01/2022 PHQ-2 Answer Date Recorded Retired PHQ-9: [...] Description 02/19/2025 1:45 PM EDT Office Visit [facility] ENDOCRINOLOGY [address] [id number] Juan J Duke MD [address] [address] 11/01/2025 1:00 PM EDT Office Visit [facility] [address] [facility] [address] [place] [address] Aracely Gil MD [address] [facility] [address] [place] [address] documented as of this encounter Visit Diagnoses Diagnosis 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 [address] [facility] [address] [place] [address] PCP - General Adolescent Medicine 08/23/22 documented as of this encounter
--- OUTSIDE RECORDS SUMMARY | 2025-01-21 11:57 | XMS_ITS | Encounter Summary ---
[facility] Address [address] [place] [address] Care Team Providers Care Automotive Instructor Name Role Phone Zach Faust MD Primary Care Provider + [phone] Reason for Visit * Reason Comments Med Refill Encounter Details Date Type Department Care Team (Late st Contact Info) Description 11/22/2024 Refill [facility] [address] [facility] [address] [place] [address] Juan J Duke MD [address] [facility] [address] [place] [id number] Social History Tobacco Use Types Packs/Day Years [...] GED or equivalent No 09/01/2022 Preferred Language French 09/01/2022 PHQ-2 Answer Date Recorded Retired PHQ-9: Brief Depression Severity Measure Score 0 09/01/2022 Sex and Gender Information Value Date Recorded Sex Assigned at Male 11/02/2024 11:25 AM EDT Legal Sex Male 6:21 PM EDT Gender Identity Not on file Sexual Orientation Not on file documented as of this encounter Miscellaneous Notes * Telephone Encounter - Chelsey Haines MA - 11/23/2024 9:48 AM EDT Rx Refill Note Requested Prescriptions Pending Prescriptions Disp Refills Ozempic, 2 MG/DOSE, 8 MG/3ML solution pen-injector [Pharmacy Med Name: Ozempic (2 MG/DOSE) 8 MG/3MLSubcutaneous Solution Pen-injector] 9 mL 0 Sig: INJECT 2MG SUBCUTANEOUSLY ONCE A WEEK Last office visit with prescribing clinician: 08/14/2024 Next office visit with prescribing clinician: 02/19/2025 Chelsey Haines MA 11/23/24, 09:48 EDT documented in this encounter Plan of Treatment Upcoming Encounters Date Type Department Care Team (Late st Contact Info) Description 02/19/2025 1:45 PM EDT Office Visit [facility] ENDOCRINOLOGY [address] [phone] Juan J Duke MD [address] [address] 11/01/2025 1:00 PM EDT Office Visit [facility] [address] [facility] [address] [place] [address] Aracely Gil MD [address] [facility] [address] [place] [address] documented as of this encounter Visit Diagnoses Not on filedocumented in this encounter Care Teams Automotive Instructor Relationship Specialty Start Date End Date Zach Faust MD [address] [facility] [address] [facility] [address] [place] [address] PCP - General Adolescent Medicine 08/23/22 documented as of this encounter
--- OUTSIDE RECORDS SUMMARY | 2025-01-21 11:57 | XMS_ITS | Clinical Summary ---
Author Organization [facility] Address [address] [facility] [address] [place] [address] Phone Care Team Providers Care Collections Associate Name Role Phone Unavailable Unavailable Conditions or Problems No information available. Medications No information available. Medications Administered No information available. Allergies, Adverse Reactions, Alerts No information available. Results No information available. Plan of Care No information available. Procedures No information available. Vital Signs No information available. Immunizations No information available. Advance Directives No information available.
--- OUTSIDE RECORDS SUMMARY | 2025-01-21 11:57 | XMS_ITS | Encounter Summary ---
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 [...] GED or equivalent No 09/01/2022 Preferred Language Danish 09/01/2022 PHQ-2 Answer Date Recorded Retired PHQ-9: Brief Depression Severity Measure Score 0 09/01/2022 Sex and Gender Information Value Date Recorded Sex Assigned at Male 11/02/2024 11:25 AM EDT Legal Sex Male 6:21 PM EDT Gender Identity Not on file Sexual Orientation Not on file documented as of this encounter Miscellaneous Notes * Telephone Encounter - Nahomy Bautista) - 12/17/2024 9:29 AM EDT Rx Refill Note Requested Prescriptions Pending Prescriptions Disp Refills levothyroxine (SYNTHROID, LEVOTHROID) 175 MCG tablet [Pharmacy Med Name: Levothyroxine Sodium 175 MCG Oral Tablet] 30 tablet 0 Sig: Take 1 tablet by mouth once daily Last office visit with prescribing clinician: 08/14/2024 Next office visit with prescribing clinician: 02/19/2025 Nahomy Bautista (Jodi) 12/17/24, 09:29 EDT documented in this encounter Plan of Treatment Upcoming Encounters Date Type Department Care Team (Late st Contact Info) Description 02/19/2025 1:45 PM EDT Office Visit [facility] ENDOCRINOLOGY [address] [phone] Juan J Duke MD [address] [address] 11/01/2025 1:00 PM EDT Office Visit [facility]UROLOGY [address] [facility] [address] [place] [address] Aracely Gil MD [address] [facility] [address] [place] [address] documented as of this encounter Visit Diagnoses Diagnosis 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
--- OUTSIDE RECORDS SUMMARY | 2025-01-21 11:57 | XMS_ITS | Clinical Summary ---
Author Organization [facility] Address [address] [place] [address] Care Team Providers Care Semiconductor Wafers Saw Operator Name Role Phone Zach Faust MD Primary Care Provider + [phone] Allergies No known active allergies Medications ALPRAZolam [...] DAYS 3 Active Vitamin A 3 MG (75508 UT) capsule Take 10,000 Units by mouth [...] Date Last Done Comments [facility]-Depression Screening 1968 [facility]-Infant/Child/Adol SDOH Screenings 1968 [facility]- SDOH Screenings 1986 [facility]-Adult SDOH Screenings 1986 [facility]-DTaP,Tdap,and Td Vaccine s (1 - Tdap) 09/18/1987 [facility]-Hepatitis B Vaccines (1 of 3 - 19+ 3-dose series) 09/18/1987 CT Colonography 2013 Colonoscopy 2013 FIT-DNA 2013 FIT 2013 FOBT 2013 Sigmoidoscopy 2013 [facility]-Colorectal Cancer Screening 2013 [facility]-Zoster Vaccines (2 of 2) 01/06/2023 11/11/2022 [id number] Vaccine ( - season) 2024 04/29/2021, 09/16/2020, 08/19/2020 [facility]-Influenza Vaccine (#1) 2025 05/11/2022 [facility]-Diabetes: Hemoglobin A1C Discontinued 08/23/2022 [...] patient's age to complete this topic Insurance [facility] MEDICAID Care Teams Semiconductor Wafers Saw Operator Relationship Specialty Start Date End Date Zach Faust MD [address] [place] [address] [place] [address] PCP - General Internal Medicine 09/18/22
--- OUTSIDE RECORDS SUMMARY | 2025-01-21 11:58 | XMS_ITS | Patient Health Record ---
Author Organization [facility] Address [address] [place] [address] Care Team Providers Care Bolt Maker Name Role Phone Chase Peterson Primary Care Provider CHASE PETERSON Unavailable Unavaila Zach Alegre Unavailable [phone] Migration, Provider Unavailable Unavailable Allergies No Known Allergies Results Component Value Reference Range Notes THYROID PANEL WITH TSH (7444 ) Reviewed date:01/09/2025 11:15:57 AM Interpretation: Performing Lab:[facility] [employer] [id number] [facility] HospitalQgokZQ[address] Lai Daniels Notes/Report: NON-FASTING; NON-FASTING; NON-FASTING; NON-FASTING; NON-FAST T3 UPTAKE 30 22-35 % T4 (THYROXINE), TOTAL 8.3 4.9-10.5 mcg/dL FREE T4 INDEX (T7) 2.5 1.4-3.8 TSH 1.68 0.40-4.50 mIU/L BASIC METABOLIC PANEL (25803 ) Reviewed date:01/09/2025 11:16:48 AM Interpretation: Performing Lab:[facility] [facility] [address] [facility] HospitalSctuCO[address] Lai Daniels Notes/Report: NON-FASTING; NON-FASTING; NON-FASTING; NON-FASTING; [...] Reviewed date:01/09/2025 11:16:37 AM Interpretation: Performing Lab:[facility] [facility] [address], E-nterviewPsgpBP[address] Lai Daniels Notes/Report: NON-FASTING; NON-FASTING; NON-FASTING; NON-FASTING; NON-FAST MAGNESIUM 2.3 1.5-2.5 mg/dL HEMOGLOBIN A1c (496) Reviewed date:01/09/2025 11:16:24 AM Interpretation: Performing Lab:[facility] [facility] [address], [place]JwuoCW[address] Lai Daniels Notes/Report: NON-FASTING; NON-FASTING; NON-FASTING; NON-FASTING; [...] Reviewed date:01/09/2025 11:15:46 AM Interpretation: Performing Lab:ROBERTO, [employer] [address], E-Box - Blogo.itUpjfPC[address] Lai Daniels Notes/Report: NON-FASTING; NON-FASTING; NON-FASTING; NON-FASTING; NON-FAST TESTOSTERONE, TOTAL, MALES (ADULT), IA 591 250-827 ng/dL M-Thyroid Stimulating Hormon e Reviewed date:03/20/2024 10:27:19 AM Interpretation: Performing Lab: Notes/Report: TSH 4.82 0.465-4.68 uIU/mL M-Lipid Panel Reviewed date:03/20/2024 10:27:19 AM Interpretation: Performing Lab: Notes/Report: Patient Fasting? Y TRIG 217 30-150 mg/dl CHOL 112 140-200 mg/dl DLDL 60.61 100-129 mg/dL VLDL 43 0-40 mg/dL HDL 20 40-60 mg/dl CHLHDL 5.6 1-3.5 M-Hemoglobin A1C Reviewed date:03/20/2024 10:27:19 AM Interpretation: Performing Lab: Notes/Report: HGBA1C 7.7 4.0-6.0 % < 6% Non-Diabetic Level < 7% Controlled Diabetic Level > 8% Poorly Controlled Diabetic Level M-Comprehensive Metabolic Pa myriam Reviewed date:03/20/2024 10:27:18 [...] AGRATIO 1.4 1.1-1.8 ALP 129 38-126 U/L VITAMIN B12 (927) Reviewed date:09/10/2024 02:45:59 PM Interpretation: Performing Lab:CB, [facility] [address], [place] GraffLbcgYS[address] Lai V Jeremiah Notes/Report: NON-FASTING; NON-FASTING; NON-FASTING; NON-FASTING; NON-FAST VITAMIN B12 002 424-2667 pg/mL HEMOGLOBIN A1c (496) Reviewed date:09/10/2024 02:45:59 PM Interpretation: Performing Lab:[facility] [address] [facility], [facility] CenterIgokXO[address] Lai Daniels Notes/Report: NON-FASTING; NON-FASTING; NON-FASTING; NON-FASTING; [...] A1c for diagnosis of diabetes for children. CBC (INCLUDES DIFF/PLT) (639 9) Reviewed date:09/10/2024 02:45:59 PM Interpretation: Performing Lab:[facility] [facility] Ilni[address] [facility], [facility] HospitalKwntFB[address] Lai Daniels Notes/Report: NON-FASTING; NON-FASTING; NON-FASTING; NON-FASTING; [...] MPV 10.4 7.5-12.5 fL ABSOLUTE NEUTROPHILS 6290 8675-1930 cells/uL ABSOLUTE LYMPHOCYTES 2610 850-3900 cells/uL ABSOLUTE MONOCYTES 710 200-950 cells/uL ABSOLUTE EOSINOPHILS 320 15-500 cells/uL ABSOLUTE BASOPHILS 70 0-200 cells/uL NEUTROPHILS 62.9 LYMPHOCYTES 26.1 MONOCYTES 7.1 EOSINOPHILS 3.2 BASOPHILS 0.7 COMPREHENSIVE METABOLIC PANE L (63849) Reviewed date:09/10/2024 02:45:59 PM Interpretation: Performing Lab:[facility] [address], [place] JxjoNY[address] Lai Daniels Notes/Report: NON-FASTING; NON-FASTING; NON-FASTING; NON-FASTING; [...] 22 10-35 U/L ALT 35 9-46 U/L LIPID PANEL, STANDARD (7600) Reviewed date:09/10/2024 02:45:59 PM Interpretation: Performing Lab:[facility] [address], E-Box - Blogo.itCswnFP[address] Lai Daniels Notes/Report: NON-FASTING; NON-FASTING; NON-FASTING; NON-FASTING; [...] LDL-C. Ryne SS et al. RIVERA. 2013;310(19): 1854-1631 (http://education.Primekss/faq/PUS065) CHOL/HDLC RATIO 4.6 <5.0 (calc) NON HDL CHOLESTEROL 94 <130 mg/dL (calc) For patients with diabetes plus 1 major ASCVD risk factor, treating to a non-HDL-C goal of <100 mg/dL (LDL-C of <70 mg/dL) is considered a therapeutic option. THYROID PANEL WITH TSH (7444 ) Reviewed date:09/10/2024 02:45:59 PM Interpretation: Performing Lab:[facility], [facility], [place] AlonsoUxutNK[address] Lai Daniels Notes/Report: NON-FASTING; NON-FASTING; NON-FASTING; NON-FASTING; NON-FAST T3 UPTAKE 31 22-35 % T4 (THYROXINE), TOTAL 10.0 4.9-10.5 mcg/dL FREE T4 INDEX (T7) 3.1 1.4-3.8 TSH 0.95 0.40-4.50 mIU/L Echocardiogram Reviewed date:11/25/2024 12:06:23 PM Interpretation: Performing Lab: Notes/Report: Echocardiogram Reviewed date:11/25/2024 12:06:23 PM Interpretation: Performing Lab: Notes/Report: Ankle/Brachial Index--Cristi tavarez BPs Reviewed date:09/24/2024 01:23:31 PM Interpretation: Performing Lab: Notes/Report: Microalbumin (In-House) Reviewed date:09/10/2024 09:18:12 AM Interpretation: Performing Lab: Notes/Report: ALB 10mg CRE 50mg A:C <30mg Reason For Referral Reason [place] [facility] Eval and Treat Diagnosis 1 Sensorineural hearin g loss, bilateral (H90.3) Referral Organization [facility] Referring Provider First Name Zach Referring Provider Last Name Christianne Referring Provider Speciality Internal M edicine Referred Provider Specialty Audiologists General Notes Vy Barrientos 2024 03:49:19 PM >sent to Hearing and Speech Referral Priority Routine Reason echo Diagnosis 1 SOB (shortness of br eath) (R06.02) Referral Organization [facility] ELEAZAR JONES Referring Provider First Name Chase Referring Provider Last Name Kristen Referring Provider Speciality [facility] ctice Referred Organization [facility] Referred Address [address] [place] [address],[address],[place] Referred Provider Specialty Diagnostic R adiology General Notes Vy Barrientos 2024 10:13:08 AM >sent to [facility] to schedule Referral Priority Routine Reason [facility] Urology in [place] Diagnosis 1 Primary erectile dys function (N52.9) Referral Organization [facility] Referring Provider First Name Zach Referring Provider Last Name Christianne Referring Provider Speciality Internal M edicine Referred Organization [facility] Referred Address [address] [place], [place],[address],[place] Referred Provider Specialty Urology General Notes Vy Barrientos 2024 12:12:17 PM >sent referral through [facility] portal_ They will call patient to schedule appt for [facility] Referral Priority Routine Medications Medication SIG (Take, Route, Frequency, Duration) Notes Start Date End Date Status TEST STRIPS AND LANCETS NA ONCE A DAY NA ONCE A DAY; Duration: 30 DAYS 07/20/2022 Active Flonase Allergy Relief 50 MCG/ACT as directed in each nostril once a day; Duration: 30 days 08/16/2022 Active Jardiance 25 MG 1 tablet Orally Once a day; Duration: 90 days 09/28/2024 Active Levothyroxine Sodium 137 MCG 1 tab(s) orally once a day; Duration: 30 days 01/01/2023 Active Xanax 0.5 MG 1 tab(s) orally twic e a day as needed for anxiety; Duration: 30 days 11/27/2024 Active Vitamin C 1000 MG 1 tab(s) orally once a day Active Sertraline HCl 50 MG 1 tablet Orally Onc e a day; Duration: 90 days 09/09/2024 Active GLUCOMETER 07/20/2022 Active Ozempic (2 MG/DOSE) 8 MG/3ML inject 2mg Subcutaneous 09/10/2024 Acti ve Multivitamin 1 TAB ONCE A DAY Active metFORMIN HCl 500 MG 1 tab(s) orally onc e a day; Duration: 90 days Active Vitamin A 10,000 UNITS 1 TAB PO QD Active Pantoprazole Sodium 40 MG Take 1 tablet by mouth once daily; Duration: 90 Active Journavx 50 MG 1 tablet Orally twic e a day; Duration: 5 days 01/21/2025 Active Famotidine 40 MG 1 tab(s) orally once a day (at bedtime); Duration: 90 days Active Allergy Relief (Cetirizine) 10 MG 1 tab(s) orally once a day; Duration: 30 days Active Diclofenac Sodium 1 % 2 gram applied top ically 4 times a day; Duration: 30 days 12/12/2023 Active Rosuvastatin Calcium 10 MG Take 1 tablet by mouth once daily; Duration: 90 Active rOPINIRole HCl 0.25 MG 1 tab(s) orally a t night as needed for restless legs; Duration: 30 days 02/08/2024 Active hydrOXYzine HCl 25 MG 1 tab orally every morning and once a day as needed for anxiety; Duration: 90 days Active Immunizations Vaccine Route Administration Date Status Comme nts Boostrix IM Intramuscular 09/09/2024 Administered FLUZONE 6MO - OLDER IM Intramuscular 04/18/2023 Administer ed Prevnar PCV-20 (Pneumococcal conjugate 20) Unknown 11/11/2022 Administered SHINGRIX Unknown 11/11/2022 Administered SHINGRIX Unknown 01/27/2023 Administered Social History Tobacco Use: Social History Observation Description Date Details (start date - stop date) Never Smoker NA - NA Smoking: Question Answer Notes Are you a: nonsmoker Problems Problem Type SNOMED Code ICD Code Onset Dates Problem Status W/U Status Risk Notes Problem Autoimmune thyroiditis (26088981) Autoimmune thyroiditis (E06.3) Active confirmed Problem Mixed hyperlipidemia (372134873) Mixed hyperlipidemia (E78.2) Active confirmed Problem Encephalopathy (11487797) Encephalopathy, unspecified (G93.40) Active confirmed Problem Retinal pigment epithelial dystrophy (disorder) (511402590491956) 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 Problem Sensorineural hearing loss of bilateral ears (disorder) (238999370) Sensorineural hearing loss, bilateral (H90.3) Active confirmed Problem 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) Pemphigus erythematosus (L10.4) Active confirmed Problem Loose body in joint of shoulder region (619981236) Loose body in right shoulder (M24.011) Active confirmed Problem Seizure (22109530) Seizure (R56.9) Active confi rmed Problem Restless legs (49981452) RLS (restless legs syndrome) (G25.81) Active confirmed Problem Adjustment disorder with mixed emotional features (09945364) Situational mixed anxiety and depressive disorder (F43.23) Active confirmed Problem Obese class I (251616791257120) BMI 33.0-33.9,adult (Z68.33) Active confirmed Problem Hypothyroidism (96692182) Hypothyroidism, unspecified hypothyroidism type (E03.9) Active confirmed Problem Generalized anxiety disorder (75001964) JOCELIN (generalized anxiety disorder) (F41.1) Active confirmed Problem Shoulder joint pain (348005460) Acute pain of right shoulder (M25.511) Active confirmed Problem Ventricular premature complex (disorder) (132515302) PVC (premature ventricular contraction) (I49.3) Active confirmed Problem Hyperglycemia due to type 2 diabetes mellitus (839633096106112) Diabetes mellitus with hyperglycemia (E11.65) Active confirmed Problem Mild recurrent major depression (62892794) Mild episode of recurrent major depressive disorder (F33.0) Active confirmed Problem Tear of right rotator cuff (53521704225552382) Rotator cuff tear, right (M75.101) Active confirmed Problem Gastroesophageal reflux disease (disorder) (142342722) Chronic GERD (K21.9) Active confirmed Problem Type II diabetes mellitus without complication (832222801) Type 2 diabetes mellitus without complication, without long-term current use of insulin (E11.9) Active confirmed Problem Localized, primary osteoarthritis of the shoulder region (353778929) Arthritis of right shoulder region (M19.011) Active confirmed Problem Supraventricular premature beats (07702316) PAC (premature atrial contraction) (I49.1) Active confirmed Problem Laboratory test result abnormal (430670030) Abnormal laboratory test result (R89.9) Active confirmed Problem Retinitis pigmentosa (80923085) 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 Problem Primary erectile dysfunction (882777296) Primary erectile dysfunction (N52.9) Active confirmed Vital Signs Heart Rate 104 /min 01/21/2025 Temperature 98.0 degrees Fahrenheit 01/21/2025 Oximetry 96 11/16/2024 Blood pressure diastolic 92 mm Hg 01/21/2025 Height 6ft 1in in 01/21/2025 Blood pressure systolic 126 mm Hg 01/21/2025 Weight 250 lbs 01/21/2025 BMI 32.98 kg/m2 01/21/2025 Encounters Encounter Location Date Provider Diagnosis [facility] [address] [place] [address] 09/05/2024 Provider Migration Chronic GERD K21.9 [facility] [address] [place] [address] 02/08/2024 Chaseclemencia Peterson RLS (restless legs syndrome) G25.81 [facility] [address] [place] [address] 03/30/2024 Chase Kristen Type 2 diabetes mellitus without complication, without long-term current use of insulin E11.9 ; Hypothyroidism, unspecified hypothyroidism type E03.9 ; JOCELIN (generalized anxiety disorder) F41.1 and Mixed dyslipidemia E78.2 [facility] [address] [place] [address] 09/09/2024 Zach Christianne Type 2 diabetes mellitus without complication, without [...] disorder F33.0 and Routine medical exam Z00.00 [facility] [address] [place] [address] 09/28/2024 Chase Peterson Type 2 diabetes mellitus without complication, without long-term current use of insulin E11.9 ; JOCELIN (generalized anxiety disorder) F41.1 ; Hypothyroidism, unspecified hypothyroidism type E03.9 and RLS (restless legs syndrome) G25.81 [facility] [address] [facility] [address] [place] [address] 11/16/2024 Chase Peterson SOB (shortness of breath) R06.02 and Intermittent chest pain R07.9 [facility] [address] [facility] [address] [place] [address] 01/06/2025 Zach Faust PAC (premature atria l contraction) I49.1 ; PVC (premature ventricular contraction) I49.3 ; Primary erectile dysfunction N52.9 and Diabetes mellitus with hyperglycemia E11.65 [facility] [address] [place] [address] 01/21/2025 Chase Peterson Acute midline thorac ic back pain M54.6 ; Acute midline low back pain without sciatica M54.50 and Acute traumatic pain G89.11 [facility] [address] [place] [address] 03/19/2024 Chase Peterson Hypothyroidism, unspecified hypothyroidism type E03.9 ; Autoimmune thyroiditis E06.3 ; Type 2 diabetes mellitus without complication, without long-term current use of insulin E11.9 and Mixed dyslipidemia E78.2 [facility] [place] [address] [address] 04/20/2024 Chase Peterson Chronic GERD K21.9 [facility] [address] [address] 06/30/2024 Chase Crandallence [facility] [address] [place] [address] 08/10/2024 Chase Crandallence [facility] [address] [facility] [address] [place] [address] 09/10/2024 Chase Crandallence [facility] [address] [address] 11/27/2024 Zach Besson JOCELIN (generalized anxiety disorder) F41.1 [facility] [address] [place] [address] 11/30/2024 Chase Peterson Assessments Encounter Date Diagnosis (ICD Code) Assessment Notes Treatment Notes Treatment Clinical Notes Section Notes 02/08/2024 RLS (restless legs syndrome) (ICD-10 - [...] hypothyroidism type (ICD-10 - E03.9) continue replacement, weight reduction specialist following 03/30/2024 Type 2 diabetes mellitus without [...] 11/16/2024 Intermittent chest pain (ICD-10 - R07.9) 11/27/2024 JOCELIN (generalized anxiety disorder) (ICD-10 - F41.1) 01/06/2025 PVC (premature ventricular contraction) (ICD-10 - I49.3) 01/06/2025 PAC (premature atrial contraction) (ICD-10 - I49.1) Premature beats heard -> will order EKG + mag + BMP + TSH -if significant PAC/PVC burden on EKG, can consider holter monitor placment EKG reviewed. EKG normal sinus, nonactionable, PAC burden is not extensive at this point 01/21/2025 Acute midline thoracic back pain (ICD-10 - M54.6) Samples provided for first 2 days of treatment, script sent as noted. Continue heat and gentle ROM, muscle relaxer at HS Strict return precautions reviewed 01/21/2025 Acute midline low back pain without sciatica (ICD-10 - M54.50) 01/21/2025 Acute traumatic pain (ICD-10 - G89.11) 01/06/2025 Primary erectile dysfunction (ICD-10 - N52.9) Patient doesnt want a pill that he has to take each time to get erection, wants something more permanent -will check Testosterone and offer for urology referal today 09/28/2024 Hypothyroidism, unspecified hypothyroidism type (ICD-10 - E03.9) per endocrine 09/09/2024 Encephalopathy, unspecified (ICD-10 - G93.40) 03/30/2024 JOCELIN (generalized anxiety disorder) (ICD-10 - F41.1) improved overall, no changes recommended 03/19/2024 Type 2 diabetes mellitus without complication, without long-term current use of insulin (ICD-10 - E11.9) 03/19/2024 Mixed dyslipidemia (ICD-10 - E78.2) 09/09/2024 Pigmentary retinal dystrophy (ICD-10 - H35.52) Follows with ophthalmology for eye exam 03/30/2024 Mixed dyslipidemia (ICD-10 - E78.2) improving on rosuvastatin, LFT normal 09/28/2024 RLS (restless legs syndrome) (ICD-10 - G25.81) continue requip 01/06/2025 Diabetes mellitus with hyperglycemia (ICD-10 - E11.65) Repeat A1c today, unsure when his next endocrine appointment is 09/09/2024 Mixed hyperlipidemia (ICD-10 - E78.2) 09/09/2024 Primary erectile dysfunction (ICD-10 - N52.9) [...] Treatment Pending Test Test Name Order Date X ray : Spines, Lumbar 01/21/2025 X ray : Spines, Thoracic Spine 5 Y-Cjwh-Wmeysrrzygkbi Antibody 12/23/2022 Next Appt Details Provider Name:Chase tan, 03/29/2025 04:15:00 PM, [address], [place], [address], Insurance Providers Payer Name Payer Address Payer Phone Subscriber Number Group Number Insured Name Patient Relationship to Insured Coverage Start Date Coverage End Date [employer] DUAL [address] [address] [place] [id number] Lai Caballero Self - patient is the [...]
--- OUTSIDE RECORDS SUMMARY | 2025-01-21 11:58 | XMS_ITS | Clinical Summary ---
Author Organization [facility] Address [address] [place] [address] Care Team Providers Care Real Estate Consultant Name Role Phone Zach Faust MD Primary Care Provider + [phone] Allergies No known active allergies Medications promethazine-co deine (PHENERGAN with CODEINE) 6.25-10 MG/5ML syrupIndication s:Cough Take 5 mL by mouth Every 4 (Four) Hours As Needed for Cough. Indications: Cough Active metFORMIN (GLUCOPHAGE) 500 MG tabletIndicatio ns:Type 2 Diabetes Mellitus Take 1 tablet by mouth Daily. Indications: Type 2 Diabetes 09/18/19 23 Active cetirizine (zyrTEC) 10 MG tabletIndicatio ns:Seasonal Allergic Rhinitis Take 1 tablet by mouth Daily. Indications: Hayfever Active Vitamin A 3 MG (22335 UT) capsule Take 1 capsule by mouth Daily. Active ALPRAZolam (XANAX) 0.25 MG tabletIndicatio ns:Anxiety Take 1 tablet by mouth 3 (Three) Times a Day As Needed for Anxiety. Indications: Feeling Anxious 10/20/19 23 Active famotidine (PEPCID) 40 MG tablet Take 1 tablet by mouth At Night As Needed. 04/18/20 23 Active pantoprazole (PROTONIX) 40 MG EC tablet Take 1 tablet by mouth Daily. Active FREESTYLE LITE test strip 1 each by Other route Daily. 08/22/19 24 Active rosuvastatin (CRESTOR) 10 MG tablet 1 tablet Daily. Acti ve hydrOXYzine (ATARAX) 25 MG tablet 08/03/19 25 Active multivitamin with minerals (MULTIVITAMIN ADULT PO) Daily. Active levETIRAcetam (KEPPRA) 500 MG tablet TAKE 1 TABLET BY MOUTH EVERY 12 HOURS FOR SEIZURE 10/12/19 25 Active ascorbic acid (VITAMIN C) 1000 MG tablet Take 1 tablet by mouth Daily. Active Ozempic, 2 MG/DOSE, 8 MG/3ML solution pen-injector INJECT 2MG SUBCUTANEOUSLY ONCE A WEEK 9 mL 11/24/19 25 Active levothyroxine (SYNTHROID, LEVOTHROID) 175 MCG tabletIndicatio ns:Hypothyroidi sm due to Rickie's thyroiditis Take 1 tablet by mouth once daily 30 tablet 2 12/18/19 25 Active Jardiance 25 MG tablet tablet Take 1 tablet by mouth Daily. 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 Around that same time, he was hospitalized with stridor and respiratory failure. He has to have a tracheostomy and was in the icu for an extended period. Prior to that he had had a slightly high tsh. Since then his tsh level has gone up and they have been having difficulty regulating it will levothyroxine. He is on 112 mcg per day His labs showed high tpo and tg antibodies Procdure: thyroid ultrasaound (05/09/23) Indication for procedure: goiter on exam Results: the thyroid is diffusely enlarged and heterogeneous without nodules Consistent with thyroiditis. 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 Thyroid levels ordered. Medication to be adjusted accordingly. 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 It could have been exacerbated by the tracheostomy I suppose. At any rate with ongoing inflammation, more and more of the thyroid will fail over time and the dose will have to be increased. The typical replacement dose is 1.6 mcg per kg per day which would put him closer to 175 mcg per day as his eventual dose Data reviewed Prior tsh, free t4, tpo antibodes Labs ordered- tsh. Plan- adjust dose of medication Type 2 diabetes mellitus wit h hyperglycemia, without long-term current use of insulin 10/17/2019 Overview (07/22/2023): Diagnosed in 2022/ started with metformin and added jardiance/ Bg checks are done 2-3 times per week Initial A1c was 11 then it came down to 7 but he has not had it for a while. No hypos Complications: no ocular complications No nephropathy No cva or mi No neuropathy Associated conditions: overweight/ hypothyroid. Nutrition: eats 3 meals per day and snacks. Cereal is his weakness Physical activity- not a lot Assessment & Plan (08/14/2024 2:20 PM EDT): Eyes- up to date Kidneys- up to date Feet. Up to date Assessment- improved Plan : no changes. Assessment & Plan (02/14/2024 3:46 PM EDT): A1c improved. Plan no changes Assessment & Plan (09/26/2023 4:22 PM EDT): Stable Blood sugars and weight not much different Plan : increase ozempic to 1 mg per week for 1 month, then 2 mg per week. If that does not work, will need daily insulin Assessment & Plan (07/22/2023 4:38 PM EST): Assessed his diabetes for the first time at his request today Not at goal- A1c >9 Diet and exercise guidelines were discussed Needs glp1 therapy. 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 11/22/2024 Refill [facility] [address] [facility] [address] [place] [address] Juan J Duke MD 11/02/2024 1:30 PM EDT Office Visit [facility] [address] [place] [phone] Aracely Gil MD Seizure (Primary Dx) 11/02/2024 Travel from Last 3 Months Family History Medical History Relation Name Comments Cancer Father Dad Dementia Mother Fran Diabetes Sister 1 Tessy Thyroid disease Sister 1 Tessy Diabetes Sister 2 Sister Thyroid disease Sister 2 Sister Diabetes Sister 3 Sister Thyroid disease Sister 3 Sister Relation Name Status Comments Father Dad Mother Fran Sister 1 Tessy Alive Sister 2 Sister Sister 3 Sister Alive Social History Tobacco Use Types Packs/Day Years Used Date Smoking Tobacco: Never Passive Smoke Exposure: Never Tobacco Cessation:Counseling Given: No Alcohol Use Standard Drinks/Week Comments Not Currently [...] GED or equivalent No 09/01/2022 Preferred Language Macanese 09/01/2022 PHQ-2 Answer Date Recorded Retired PHQ-9: Brief Depression Severity Measure Score 0 09/01/2022 Sex and Gender Information Value Date Recorded Sex Assigned at Male 11/02/2024 11:25 AM EDT Legal Sex Male 6:21 PM EDT Gender Identity Not on file Sexual Orientation Not on file Last Filed Vital Signs Vital Sign Reading Time Taken Comments Blood Pressure 138/74 11/02/2024 1:41 PM EDT Pulse 90 11/02/2024 1:41 PM EDT Temperature 36.6 C (97.8 F) 10/31/2022 12:36 PM EDT Respiratory Rate 18 10/31/2022 12:36 PM EDT Oxygen Saturation 95% 11/02/2024 1:41 PM EDT Inhaled Oxygen Concentration - - Weight 115 kg (253 lb) 11/02/2024 1:41 PM EDT Height 185.4 cm (6' 1 ) 11/02/2024 1:41 PM EDT Body Mass Index 33.38 11/02/2024 1:41 PM EDT Plan of Treatment Upcoming Encounters Date Type Department Care Team (Late st Contact Info) Description 02/19/2025 1:45 PM EDT Office Visit [facility] [address] [phone] Juan J Duke MD [address] [address] 11/01/2025 1:00 PM EDT Office Visit [facility] [address] [facility] [address] [place] [address] Aracely Gil MD [address] [facility] [address] [place] [address] Health Maintenance Due Date Last Done Comments DIABETIC EYE EXAM 1978 DIABETIC FOOT EXAM 1978 URINE MICROALBUMIN-CREATININ E RATIO (uACR) 1978 Hepatitis B (1 of 3 - 19+ 3- dose series) 09/18/1987 COLON CANCER SCREENING 5 YEA R SIGMOIDOSCOPY [address] COLONOGRAPHY 2013 FECAL OCCULT BLOOD TEST 2013 FIT Testing (1 year) 2013 ANNUAL WELLNESS VISIT 08/31/2022 COVID-19 Vaccine (2023-2 5 season) 2024 04/29/2021, 09/16/2020, 08/19/2020 HEMOGLOBIN A1C 02/14/2025 08/14/2024, 02/01, 07/22/2023, Additional history exists INFLUENZA VACCINE 03/03/2025 07/21/2024, , 05/11/2022, Additional history exists COLOGUARD 10/01/2026 10/02/2023 COLORECTAL CANCER SCREENING 10/01/2026 TDAP/TD VACCINES (3 - Td or Tdap) 09/09/2034 025, 01/22/2017 HEPATITIS C SCREENING Completed 08/28/2022, 023 Pneumococcal Vaccine 50+ Completed 11/11/2022 ZOSTER VACCINE Completed 01/27/2023, 11/11/2022 Procedures Procedure Name Priority Date/Time Associated Diagnosis Comments POCT GLYCOSYLATED HEMOGLOBIN (HGB A1C) Routine 08/14/2024 2:05 PM EDT Type 2 diabetes mellitus with hyperglycemia, without long-term current use of insulin HEPATITIS C ANTIBODY Routine 08/28/2022 2:34 PM EDT from Last 3 Months or Most Recently Relevant to Health Maintenance Results * (ABNORMAL) POC Glycosylated Hemoglobin (Hb A1C) (08/14/2024 2:05 PM EDT) Pathologist [facility] Hemoglobin A1C 7.7(A) 4.5 - 5.7 % [facility] Lot Number [id number] [facility] Expiration Date 04/21/2026 [facility] Blood 08/14/2024 2:05 PM EDT Juan J Duke MD POINT OF CARE TEST ORD ERABLES Final Result [facility]
[address] [place] [address], * Hepatitis C Antibody (08/28/2022 2:34 PM EDT) [facility] Hepatitis C Ab Non-Reacti ve Non-Reacti ve 08/28/2022 3:27 PM EDT [facility] Blood Line / Unknown 08/28/2022 2: 34 PM EDT 08/28/2022 2:48 PM EDT Narrative [facility] - 08/28/2022 3:27 PM EDT Results may be falsely decreased if patient taking Biotin. Charles Villa MD LAB BLOOD ORDERABL ES Final Result [facility]
[address] [place] [address], [place] [phone] from Last 3 Months or Most Recently Relevant to Health Maintenance Insurance MEDICARE ADVANTAGE [employer] H[employer] Advance Directives * CPR (Attempt to Resuscitate) (Latest Code Status on File) Date Activated Date Inactivated Comments 10/04/2022 3:46 PM No physician si gnature needed for this code status. Godfrey as Signed. * CPR (Attempt to Resuscitate) Date Activated Date Inactivated Comments 09/18/2022 11:35 AM 09/18/2022 2:44 PM No physicia n signature needed for this code status. Godfrey as Signed. * CPR (Attempt to Resuscitate) Date Activated Date Inactivated Comments 08/23/2022 11:06 PM 09/16/2022 1:52 PM Question Answer Comments Code Status (Patient has no pulse and is not breathing): CPR (Attempt to Resuscitate) Medical Interventions (Patie nt has pulse or is breathing): Full Support Care Teams Real Estate Consultant Relationship Specialty Start Date End Date Zach Faust MD [address] [facility] [address] [address] PCP - General Adolescent Medicine 08/23/22
--- NOTE | 2025-01-21 11:59 | XR_ITS ---
FINAL REPORT CLINICAL HISTORY: .fall 2 days ago, back pain COMPARISON: None FINDINGS: 5 views of the lumbar spine were obtained. There is no acute fracture. There is no malalignment. The vertebrae are normal in height. There is mild anterior osteophyte formation at L1-2 and L2-3. There is moderate disc space narrowing at L5-S1. There are bilateral pars defects at the L5 level. 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 Reviewed, Interpreted and Dictated by Beltran Mccloud MD Transcribed by Ankita Barger Authenticated and [facility]
--- NOTE | 2025-01-21 11:59 | XR_ITS ---
FINAL REPORT CLINICAL HISTORY: ACUTE TRAUMATIC PAIN COMPARISON: None FINDINGS: Three views of the thoracic spine were obtained. There is no acute fracture. There is no malalignment. The vertebrae are normal in height. There is mild anterior osteophyte formation of the mid and lower thoracic spine. The disc spaces are preserved. IMPRESSION: Degenerative changes without acute process. Reviewed, Interpreted and Dictated by Beltran Mccloud MD Transcribed by Ankita Barger Authenticated and [facility]
== END 2025-01-21 23:59 | disposition home or self-care (01) ==
LOC: RAD 11:55
PROVIDERS: PCP Internal Medicine Adolescent Medicine; Visit Provider Nurse Practitioner Family
DX: M47.814 Spondylosis without myelopathy or radiculopathy, thoracic region (principal); M51.379 Other intervertebral disc degeneration, lumbosacral region without mention of lumbar back pain or lower extremity pain; M48.47XA Fatigue fracture of vertebra, lumbosacral region, initial encounter for fracture; W19.XXXA Unspecified fall, initial encounter
CPT/HCPCS: 72072; 72110

== ENCOUNTER 2025-03-02 14:00 | Outpatient (RCR) | payer MEDICARE, SELFPAY ==
--- NOTE | 2025-02-19 08:27 | HMH.PTOPEV ---
PT Evaluation Rehab PT Outpatient Evaluation Start: 02/18/25 12:44 Freq: Status: Active Protocol: Document 02/18/25 12:44 TYSON (Rec: 02/18/25 13:58 TYSON [id number]) E-signed By Graciela Conner, PT Outpatient Therapy Subjective History Subjective History This is an initial PT evaluation for 54 y/o male, Lai Caballero, who presents with PT referral for acute midline LBP without sciatica. Pt reports he fell down about a month ago when stepping off of the side walk and immediately had pain in his entire back. Pt had an appointment with his PCP and had an X-ray performed. Pt reports he was given medication and his upper back felt better. Pt reports he does not remember the medication or imaging results. Pt reports muscle relaxers did not provide relief. Pt does report infrequent RLE pain symptoms. Pt denies any numbness or tingling in BLE. Pt denies any bladder or bowel dysfunction. Pt reports his pain is not getting better or worse. Pt reports he usually enjoys working out at the gym but had to stop d/t pain. Chief complaint: Mid and low back central ache and sharp pain. PMH: Diabetes, on thyroid medicine. Imaging: X-ray LB 01/21 revealed Moderately advanced degenerative disc disease L5-S1 with bilateral pars defects. New diagnosis of No cancer in past 12 months? Chief Complaint Pain Symptom Type Ache,Sharp Symptoms Relieved By Rest/Positioning,Prescription Meds Symptoms Aggravated Bending/Stooping,Physical Activity,Walking By Prior Functional None Limitations Current Functional Reaching,Lifting,Sleeping,Standing,Sitting,Recreation Limitations Activity,Walking Symptom Description Constant but Variable,Activity Dependent Level of pain today 6 (0-10) Pain scale - at its 2 best (0-10) Pain scale - at its 9 worst (0-10) Lumbopelvic Eval Posture Thoracic Spine Neutral Posture Standing Position Lumbar Spine Posture Neutral Standing Position Assistive device Assistive Devices None / NA Gait Observation General Gait Pattern No Deviations/Normal Observation Palapation tenderness right lumbar spinal Yes: 1/4 TTP tenderness paraspinal Yes: 1/4 TTP tenderness left lumbar spinal Yes: 2/4 TTP tenderness paraspinal Yes: 2/4 TTP tenderness buttock tenderness Yes: 1/4 TTP Accessory Movement T-spine Vertebrae Central P/A [place] Accessory Movements that Elicit Symptoms T10 bilateral T11 bilateral T12 bilateral L-spine Vertebrae Central P/A [place] Accessory Movements that Elicit Symptoms L2 bilateral L3 bilateral L4 bilateral Range of Motion Lumbar Spine Active 75%, painful Flexion Range of Motion (degrees) Lumbar Spine Active 75%, painful Extension Range of Motion (degrees) Left Lumbar Spine 75%, painful Lateral Flexion Active Range of Motion (degrees) Right Lumbar Spine 75%, painful Lateral Flexion Active Range of Motion (degrees) Manual Muscle Test Bilateral Knee Extension 4- Good- Strength Grade Knee Flexion 4- Good- Strength Grade Hip Flexion Strength 4- Good- Grade Hip Abduction 4- Good- Strength Grade Altered Sensation Comment Intact to light touch BLE Special Tests Lumbar Spine Screen Positive Hip Scouring ( Positive Left,Positive Right Quadrant) Test Hip Ced (ADE) Positive Left,Positive Right Test Sciatic Nerve Positive Left,Positive Right Tension Test Crossed Straight Leg Positive Left,Positive Right Raise Test Sacroiliac Joint Positive Left,Positive Right Compression Test Sacroiliac Joint Positive Left,Positive Right Distraction Test Oswestry Index Section 1 Pain Intensity The pain is moderate and does not vary much Section 2 Personal Care ( my way of washing or dressing even though it causes Washing,Dresing) some pain Section 3 Lifting lifting heavy weights off the floor, but I can manage light to medium Section 4 Walking I cannot walk more than 1/2 mile without increasing pain Section 5 Sitting Pain prevents me from sitting for more than one hour Section 6 Standing I cannot stand more than 1/2 hour without increasing pain Section 7 Sleeping I get pain in bed, but it does not prevent me from sleeping well Section 8 Social Life My social life is normal but increases the degree of pain Section 9 Traveling I get extra pain while traveling, but it does not compel me to seek al Section 10 Changing Degreee of My pain is neither getting better or worse Pain Score and Risk Level Oswestry Score 23 Oswestry Risk Level Moderate Disability Outpatient Therapy Assessment Impairments Problems/ Palpation Tenderness,Impaired Range of Motion,Impaired Impairmments Strength,Impaired Endurance,Impaired Transfers,Impaired Gait Pattern,Impaired Walking,Impaired Standing, Impaired Lifting,Impaired Incline Stepping,Impaired Bending,Impaired Balance,Subjective C/O Pain Prognosis Rehab Potential Good Comment Pt is a pleasant 54 y/o male who presents with impaired lumbar ROM, pain with AROM of LB, pain upon palpation of bilateral lumbar and thoracic paraspinals, and impaired BLE strength. PT with difficulty accurately assessing results of lumbar special tests d/t pain hypersensitivity to each test performed. PT to address pt's strength/ROM deficits and pain. If pt's pain worsens or remains severe, PT to refer back to PCP for further imaging. PT provided pt with HEP that includes DKTC, Bridges, clam shells, bugs, ball squeeze + PPT, rhomboid stretch, and scap squeezes. Pt demo'd good understanding of HEP tasks. Clinical Impression Consistent with Yes Diagnosis PT Patient Goals PT Patient Goals PT Short Term In 4 weeks, pt will: Patient Goals 1) Verbalize compliance with home exercise program to improve self-maintenance of symptoms. 2) Verbalize 48-hour pain average (worst/best/current) of 4/10 3) Improve BLE strength by 1/5 MMT grade to improve daily functioning. 4) Tolerate one 10 min moderate intensity endurance task (ex: bike) 5) Improve MAYA to 20 at most points to decrease disability from LBP and improve QOL. 6) Verbalize feeling at least 45% improved in symptoms since initial PT evaluation. PT Netting Weaver Patient In 8 weeks, pt will: Goals 1) Verbalize adherence with home exercise program to maximize self-maintenance of symptoms upon d/c from PT POC. 2) Verbalize 48-hour pain average (worst/best/current) of 1-2/10 3) Improve BLE strength to 5/5 MMT grade to improve daily functioning. 4) Improve MAYA to at most 10 points to decrease disability from LBP and improve QOL. 5) Improve Lumbar AROM to 100% to improve functional ROM for daily tasks like dressing, reaching, picking up objects, and driving. 6) Verbalize feeling at least 90% improved in symptoms since initial PT evaluation. 7) Verbalize return to recreational activities (gym, walking) with minimal-no LB or mid back pain. Outpatient Therapy Plan of Care Treatment Plan May Include Therapeutic Exercise Yes Including Home Exercise Program Manual Therapy Yes Techniques Neuromuscular Re- Yes education Therapeutic Yes Activities to Return to Previous Functional/Work Level Gait Training Yes ADL/Self Care Yes Education Dry Needling Yes Thermal Modalities Yes Electrical Yes Stimulation Ultrasound/ Yes Phonophoresis Iontophoresis Yes Orthotics/Bracing/ Yes Splinting Massage Yes Group Therapy for Yes Medicare Eval/Re-Eval Yes Frequency Times per week 2x weekly Duration Number of Weeks 6-8 weeks Addendums This patient is a No candidate for social or vocational rehab ? Patient/Guardian Yes verbally acknowledges understanding of treatment program and consents to further treatment? Patient/Guardian Yes verbally acknowledges understanding of diagnosis, prognosis and goals for treatment? Eval Complexity PT Charges 17279 - Moderate Complexity Shoulder/Elbow Eval Shoulder Objective Measurements Elbow Objective Measurements PHYSICIAN CERTIFICATION: I certify the specified therapy services for Lai Caballero are required, authorized, and reviewed every 30 days.
== END 2025-03-02 23:59 | disposition home or self-care (01) ==
LOC: PT 14:00
PROVIDERS: Visit Provider Nurse Practitioner Family
DX: M54.50 Low back pain, unspecified (principal)
CPT/HCPCS: 97110; 97162

== ENCOUNTER 2025-03-30 11:00 | Outpatient (RCR) | payer MEDICARE, SELFPAY ==
--- NOTE | 2025-03-23 14:48 | HMH.RHREAS ---
Rehab Reassessment Rehab OP Re-assessment Start: 03/04/25 15:00 Freq: Status: Active Protocol: Document 03/23/25 12:59 TYSON (Rec: 03/23/25 13:35 TYSON [id number]) E-signed By Graciela Conner, PT Oswestry Index Section 1 Pain Intensity The pain is mild and does not vary much Section 2 Personal Care ( change my way of washing or dressing in order to avoid Washing,Dresing) pain Section 3 Lifting I can lift heavy weights, but it gives me extra pain Section 4 Walking I have some pain when walking but it does not increase with distance Section 5 Sitting I can sit in any chair for as long as I like Section 6 Standing I cannot stand more than 1 hour without increasing pain Section 7 Sleeping I get pain in bed, but it does not prevent me from sleeping well Section 8 Social Life My social life is normal but increases the degree of pain Section 9 Traveling I get some pain when traveling, but none of my usual forms of travel m Section 10 Changing Degreee of My pain fluctuates, but overall is definitely getting Pain better Score and Risk Level Oswestry Score 9 Oswestry Risk Level Mild Disability Rehab Re-assessment Subjective Subjective Pt reports pain average of 2/10. Pt reports he still feels like there is a knot in his R low back that gets aggravated by walking. Pt reports RLE radiating symptoms. Pt reports 0% compliance with HEP. Pt reports he feels 70% better since IE. Pt is having cataract surgery tomorrow. Objective Objective Notes BLE MMTs: - Hip FLEX = 5/5 - Hip ABD = 5/5 - Hip ADD = 5/5 - Knee FLEX = 5/5 - Knee EXT = 5/5 Lumbar AROM: - FLEX= 75%, painful bilateral - EXT= 100% - R SB= 100% painful R - L SB= 100% Lumbar palpation: 1/4 TTP lumbar paraspinals. Assessment Progress Assessment Progressing as Expected Assessment Notes This is a reassessment for Lai Caballero who presents with acute LBP. Pt has been regularly attending physical therapy for ~1 month. Pt with good attendance to PT sessions and has shown good progress since initial PT evaluation. Pt with improved tolerance to AROM and with good BLE strength. Pt still presents with pain with lumbar AROM and 1/4 TTP R paraspinals. Pt responded well to addition of STM on paraspinals this date. Pt would continue to benefit from skilled PT to address pain complaints and meet remaining LTGs. PT Patient Goals PT Short Term In 4 weeks, pt will: Patient Goals 1) Verbalize compliance with home exercise program to improve self-maintenance of symptoms. not met 2) Verbalize 48-hour pain average (worst/best/current) of 4/10: met 3) Improve BLE strength by 1/5 MMT grade to improve daily functioning: met 4) Tolerate one 10 min moderate intensity endurance task (ex: bike): met 5) Improve MAYA to 20 at most points to decrease disability from LBP and improve QOL: met 6) Verbalize feeling at least 45% improved in symptoms since initial PT evaluation: met PT Boat Patcher Plastic Patient In 8 weeks, pt will: Goals 1) Verbalize adherence with home exercise program to maximize self-maintenance of symptoms upon d/c from PT POC. not met 2) Verbalize 48-hour pain average (worst/best/current) of 1-2/10: met 3) Improve BLE strength to 5/5 MMT grade to improve daily functioning. met 4) Improve MAYA to at most 10 points to decrease disability from LBP and improve QOL. met 5) Improve Lumbar AROM to 100% to improve functional ROM for daily tasks like dressing, reaching, picking up objects, and driving. Not met 6) Verbalize feeling at least 90% improved in symptoms since initial PT evaluation: not met 7) Verbalize return to recreational activities (gym, walking) with minimal-no LB or mid back pain: not met Plan Plan Continue POC Frequency of Therapy 2x Duration of Therapy 2-3 weeks Time and Billing Re-Eval Time 10 Re-Eval Billing 0 Units Charge for PT No reassessment? PHYSICIAN CERTIFICATION: I certify the specified therapy services for Lai Caballero are required, authorized, and reviewed every 30 days.
== END 2025-03-30 23:59 | disposition home or self-care (01) ==
LOC: PT 11:00
PROVIDERS: Visit Provider Nurse Practitioner Family
DX: M54.50 Low back pain, unspecified (principal)
CPT/HCPCS: 97110

== ENCOUNTER 2025-04-08 11:00 | Outpatient (RCR) | payer MEDICARE, SELFPAY | END 2025-04-08 23:59 | disposition home or self-care (01) | LOC: PT 11:00 | PROVIDERS: Visit Provider Nurse Practitioner Family | DX: M54.50 Low back pain, unspecified (principal) | CPT/HCPCS: 97110 ==

== ENCOUNTER 2025-04-28 07:17 | Outpatient (CLI) | payer MEDICARE, SELFPAY ==
--- OUTSIDE RECORDS SUMMARY | 2011-07-26 06:15 | XMS_ITS | Continuity of Care Document ---
Author Organization [facility] Address [address] [place] [address] Phone Care Team Providers Care Rouge Mixer Name Role Phone Unavailable Unavailable Unavailable Procedures Procedure Date TTE W/DOPPLER, COMPLETE OFFICE/OUTPATIENT VISIT, NEW ELECTROCARDIOGRAM, COMPLETE Advance Directives Directive Yes / No Effective Date File Name No Information Encounters Encounter Description Practice Location Reason(s) For Visit Diagnoses Date Provider Providers Copied on Encounter [facility] , [address], [place], [place], [id number], tel:[phone] [facility] [place] No Information 2 No Information OFFICE/OUTPAT IENT VISIT, NEW [facility] , [address], [place], [place], [id number], [place] tel:[phone] [facility] [place] No Information 2 No Information Family History Family Member Type Diagnosis Age At Onset No Information Payers Payer name Insurance type Covered constitution party ID Authoriza tion(s) Medicaid [facility] [id number] Social History Type Description Quantity Date Captured Comments Sex Male Smoking Status No Information Chief Complaint And Reason For Visit No Information Reason For Referral Reason For Referral No Information History Of Present Illness Encounter Date Complaint History Of Prese nt Illness No Information Functional Status Date Functional Assessmen t No Information Instructions Date Instruction Additional Infor mation No Information Assessments Type Assessment Date No Information Patient Care Teams Name Effective Dates (start - stop) Status Members No Information
--- OUTSIDE RECORDS SUMMARY | 2017-11-12 05:00 | XMS_ITS | Continuity of Care Document ---
Author Organization [facility] Address [address] [place] [address] Phone Care Team Providers Care Manager Process Improvement Name Role Phone Javed Bynum DMD Unavailable Unavailable Allergies, Adverse Reactions, Alerts Substance Reaction Status Criticality No Known Allergies Active No Inform ation Procedures Procedure Date AMALGAM:2 SURFACES-PRIMARY OR PERM AMALGAM:2 SURFACES-PRIMARY OR PERM Planned Tx Completed Health History Update ADULT PROPHYLAXIS(Over 14) ORAL HYGIENE INSTRUCTIONS NUTRITIONAL COUNSELING Caries High Risk Findings BITEWIN FILMS PANORAMIC FILM INTRAORAL:PERIAPICAL 1ST FILM N/C INTRAORAL:PERIAPICAL-EA ADD FILM N/C October INTRAORAL:PERIAPICAL-EA ADD FILM N/C October INTRAORAL:PERIAPICAL-EA ADD FILM N/C October COMPR ORAL EVAL:NEW/EST Health History Update LIMITED ORAL EVAL:PROBLEM FOCUSED INTRAORAL:PERIAPICAL 1ST FILM 7 Ext-Erupted Tooth Or Exp Root(Elev Forc Remvl Advance Directives Directive Yes / No Effective Date File Name No Information Encounters Encounter Description Practice Location Reason(s) For Visit Diagnoses Date Provider Providers Copied on Encounter [facility], [address], [place], [place], [id number], tel:[phone] [facility] adventism status [address] [place], [address], [place]. tel: [phone] [facility], [address], [place], [place], [id number], [place] tel:[phone] [facility] Other dental procedure statusEncounter for dental exam and cleaning w/o abnormal findings [address] [place], [address], [place]. tel: [phone] [facility], [address], [place], [place], [id number], [place] tel:[phone] [facility] Other dental procedure status [address] [place], [address], [place]. tel: [phone] [facility], [address], [place], [place], [id number], [place] tel:[phone] [facility] Other dental procedure status [address] [place], [address], [place]. tel: [phone] Family History Family Member Type Diagnosis Age At Onset No Information Payers Payer name Insurance type Covered libertarian ID Israel pedersen(s) Danyelle Muniz [facility] [id number] [facility] [id number] Social History Type Description Quantity Date Captured Comments Sex Male Smoking Status No Information Sexual Orientation Straight or heterosexual Jan Gender Identity Male Chief Complaint And Reason For Visit No [...]
--- OUTSIDE RECORDS SUMMARY | 2022-08-08 08:30 | XMS_ITS | Continuity of Care Document ---
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 [place], [address], [place] tel:[phone] [facility] Disability exam (chief complaint) Retinitis pigmentosa, both eyesCombined forms of age-related cataract, bilateral Lee Iyer. [facility] [place], [place], [id number], . tel:[phone] Referring Provider: Shireen Nixon OD, [address] [place], [address]. tel:[phone] Family History Family Member Type Diagnosis Age At Onset No Information Payers Payer name Insurance type Covered constitution party ID Israel pedersen(s) [facility] [id number] Social History Type Description Quantity Date Captured Comments Alcohol Use Details Unknown Caffeine Use Details Unknown Tobacco Use Status Current non-smoker Smoking Status Never smoker Non-Smoking Tobacco Use Details : No Details Available : No Details Available Sex Male Chief Complaint And Reason For Visit From encounter dated '08/08/2022 13:30'. Disability exam (chief complaint). Description: The 51 year old patient presents for evaluation of Disability exam in the right eye and left eye. It started about 1 year(s) ago.Pt states -Retinitis Pigmentosa OU, found out mid last year -reports VA getting worse even with glasses -Reports due aboutnow for regular eye exam-retina Doctor recommended vitamin A, has been taking that -floaters occasionally more OS -occasional headaches -itching-Denies eye pain, burning Reason For Referral Reason For Referral No Information Plan Of Treatment Date Type Action Status Patient Education Learning About Your Eye s completed History Of Present Illness Encounter Date Complaint History Of Prese nt Illness Disability exam The 51 year old patient presents for evaluation of Disability exam in the right eye and left eye. It started about 1 year(s) ago.Pt states -Retinitis Pigmentosa OU, found out mid last year -reports VA getting worse even with glasses -Reports due about now for regular eye exam-retina Doctor recommended vitamin A, has been taking that -floaters occasionally more OS -occasional headaches -itching-Denies eye pain, burning Functional Status Date Functional Assessmen t No Information Instructions Date Instruction Additional Infor matkenny Impression/Plan Related to Retin itis pigmentosa, both eyes Impression/Plan Related to Combi isidro forms of age-related cataract, bilateral Assessments Type Assessment Date assessment Retinitis pigmentosa, both eyes impression Retinitis pigmentosa, both eyes: H35.52.- Usher Syndrome assessment Combined forms of age-related ca taract, bilateral impression Combined forms of age-related ca taract, bilateral: H25.813 Patient Care Teams Name Effective Dates (start - stop) Status Members No Information
--- OUTSIDE RECORDS SUMMARY | 2023-05-09 13:38 | XMS_ITS | Encounter Summary ---
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 [address] [address] Phone: tel: fax: Referral ID Status Reason Start Date Expiration Date Visits Re quested Visits Authorized [id number] Closed 05/09/2023 05/08/2024 1 1 Encounter Details Date Type Department Care Team (Late st Contact Info) Description 05/09/2023 1:38 PM EST Hospital Encounter [facility] [address] [address] Social History Tobacco Use Types Packs/Day Years Used Date Smoking Tobacco: Never Passive Smoke Exposure: Never Smokeless Tobacco: Never Alcohol Use Standard Drinks/Week Comments Not Currently 0 (1 standard drink = 0.6 oz pure alcohol) Just occasionally frequency is not per week OASIS D0700: Social Isolation Answer Da te Recorded Frequency of experiencing loneliness or isolatio n Never 10/31/2022 OASIS A1250: Transportation Answer Date Recorded Lack of Transportation (Medical) No 10/31/2022 Lack of Transportation (Non-Medical) No 10/31/2022 Patient Unable or Declines to Respond No 10/31/2022 OASIS B1300: Health Literacy Answer Jake e Recorded Frequency of needing help to read materials from doctor or pharmacy Sometimes 10/31/2022 AUDIT-C Answer Date Recorded Q1: How often do you have a drink containing alc ohol? 2-4 times a month 08/24/2022 Q2: How many drinks containi ng alcohol do you have on a typical day when you are drinking? 1 or 2 08/24/2022 Q3: How often do you have si x or more drinks on one occasion? Less than monthly 08/24/2022 Overall Financial Resource Strain (CARDIA) Answe r Date Recorded How hard is it for you to pa y for the very basics like food, housing, medical care, and heating? Not hard at all 09/01/2022 PHQ-2 Answer Date Recorded Retired PHQ-9: Brief Depression Severity Measure Score 0 09/01/2022 Exercise Vital Sign Answer Date Recorde d On average, how many days pe r week do you engage in moderate to strenuous exercise (like a brisk walk)? Patient declined On average, how many minutes do you engage in exercise at this level? Patient declined 09/01/2022 Hunger Vital Sign Answer Date Recorded Within the past 12 months, y ou worried that your food would run out before you got the money to buy more. Never true 09/02/19 23 Ran Out of Food in the Last Year Not on file 09/01/2022 PRAPARE - Transportation Answer Date Re corded In the past 12 months, has l ack of transportation kept you from medical appointments or from getting medications? No 06/2022 In the past 12 months, has l ack of transportation kept you from meetings, work, or from getting things needed for daily living? No 09/01/2022 Abuse Screen Answer Date Recorded Feels Unsafe at Home or Work/School unab le to answer (comment required) 08/23/2022 Feels Threatened by Someone unable to an swer (comment required) 08/23/2022 Does Anyone Try to Keep You From Having Contact with Others or Doing Things Outside Your Home? unable to answer (comment required) 08/23/2022 Physical Signs of Abuse Present no 08/23/2022 Housing Stability Answer Date Recorded Current Living Arrangements home 06/2022 Potentially Unsafe Housing Conditions none 09/01/2022 Family and Community Support Answer Jake e Recorded If for any reason you need h elp with day-to-day activities such as bathing, preparing meals, shopping, managing finances, etc., do you get the help you need? I don't need any help 09/01/2022 How often do you feel lonely or isolated from those around you? Never 09/01/2022 Employment Answer Date Recorded Do you want help finding or keeping work or a griffin b? Patient refused 09/01/2022 Disabilities Answer Date Recorded Difficulty Concentrating, Remembering or Making Decisions yes 08/24/2022 Difficulty Managing Errands Independently yes 08/24/2022 Education Answer Date Recorded Do you want help with school or training? For example, starting or completing job training or getting a high school diploma, GED or equivalent No 09/01/2022 Preferred Language Citizen Of [place] 09/01/2022 PHQ-2 Answer Date Recorded Retired PHQ-9: Brief Depression Severity Measure Score 0 09/01/2022 Sex and Gender Information Value Date Recorded Sex Assigned at Male 11/02/2024 11:25 AM EDT Legal Sex Male 6:21 PM EDT Gender Identity Not on file Sexual Orientation Not on file documented as of this encounter Plan of Treatment Upcoming Encounters Date Type Department Care Team (Late st Contact Info) Description 08/20/2025 10:00 AM EDT Office Visit [facility] [address] [facility] [address] [place] [address] Juan J Duke MD [address] [facility] [address] [place] [address] 11/01/2025 1:00 PM EDT Office Visit 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 us Juan J David Duke MD IMG US ORDERABLES Erica l Result documented in this encounter Visit Diagnoses Not on filedocumented in this encounter Care Teams Iridologist Relationship Specialty Start Date End Date Zach Faust MD [address] [facility] [address] [place] [address] PCP - General Adolescent Medicine 08/23/22 documented as of this encounter
--- OUTSIDE RECORDS SUMMARY | 2024-08-24 10:00 | XMS_ITS ---
Author Organization [facility] Address [address] [place], [place] [address] Care Team Providers Care Bobbin Cleaner Hand Name Role Phone Shayla Peterson Primary Care Provider [phone] SHAYLA PETERSON VENTURA Unavailable Unavaila Zach Alegre Unavailable [phone] REASON FOR VISIT Yearly Encounters Encounter Location Date Provider Diagnosis [facility] [address] [place], [place] [address] 08/24/2024 Zach Faust Plan Of Treatment No Information Progress Notes * Lai CABALLERODOB: [birth year] (54 yo M)Acc No.[id number]:08/24/2024 Progress Notes Patient: Lai RSOALES Provider: Salvatore Faust MD :1970 A ge:53 Y S ex:Male Date:08/24/2024 Address:[id number] Pcp:Shayla Peterson Subjective: * Chief Complaints: * 1 . Yearly. * Medical History: Objective: * Vitals: Assessment: Plan: * Treatment: * * Electronic signature of Jaspal Faust MD FAAP on 04/28/2025 at 07:20 AM EST Sign off status: Pending * Provider: Salvatore Faust MD Date: 0 08/24/2024 Generated for Jenaro jensen/Guero/Devorah on: 1 06/28/2024 07:20 AM EST
--- OUTSIDE RECORDS SUMMARY | 2024-09-05 16:30 | XMS_ITS ---
Author Organization [facility] Address [address] [place] [address] Care Team Providers Care Card Processing Clerk Name Role Phone Shayla Peterson Primary Care Provider SHAYLA PETERSON JACKELYN Unavailable Unavaila ble Migration, Provider Unavailable Unavailable REASON FOR VISIT [facility] To [facility] Conversion Encounter Medications Medication SIG (Take, Route, Frequency, Duration) Notes Start Date End Date Status Rosuvastatin Calcium 10 MG 1 tab(s) orally once a day; Duration: 30 day(s) Active Allergy Relief (Cetirizine) 10 MG 1 tab(s) orally once a day; Duration: 30 days Active Famotidine 40 MG 1 tab(s) orally once a day (at bedtime); Duration: 90 days Active Jardiance 10 MG Take 1 tablet by mouth once daily; Duration: 90 days Active Pantoprazole Sodium 40 MG 1 tab(s) orally once a day; Duration: 90 days Active TEST STRIPS AND LANCETS NA ONCE A DAY NA ONCE A DAY; Duration: 30 DAYS E11.9 *Please review for potential replacement for e-prescription and drug interaction check* 07/20/2022 Active hydrOXYzine HCl 25 MG 1 tab orally every morning and once a day as needed for anxiety Active rOPINIRole HCl 0.25 MG 1 tab(s) orally at night as needed for restless legs; Duration: 30 days 02/08/2024 Active OZEMPIC 2 MG/3 ML (0.25 MG OR 0.5 MG DOSE) 0.5 MG SUBCUTANEOUSLY ONCE A WEEK; Duration: 28 DAYS *Please review for potential replacement for e-prescription and drug interaction check* Active Diclofenac Sodium 1 % 2 gram applied topically 4 times a day; Duration: 30 days 12/12/2023 Active Levothyroxine Sodium 137 MCG 1 tab(s) orally once a day; Duration: 30 days 01/01/2023 Active levETIRAcetam 500 MG 1 tab(s) orally 2 times a day; Duration: 30 days Active Xanax 0.5 MG 1 tab(s) orally twic e a day as needed for anxiety; Duration: 30 days 10/18/2022 Active Flonase Allergy Relief 50 MCG/ACT as directed in each nostril once a day; Duration: 30 days 08/16/2022 Active GLUCOMETER E11.9 *Please review for potential replacement for e-prescription and drug interaction check* 07/20/2022 Active metFORMIN HCl 500 MG 1 tab(s) orally onc e a day; Duration: 90 days Active Vitamin A 10,000 UNITS 1 TAB PO QD *Please review and pick correct strength-formulat ion from [employer] options. If intended option is not shown, discontinue and re-order from Quick Search* Active Multivitamin 1 TAB ONCE A DAY *Please review and pick correct strength-formulat ion from [employer] options. If intended option is not shown, discontinue and re-order from Quick Search* Active Vitamin C 1000 MG 1 tab(s) orally once a day Active Encounters Encounter Location Date Provider Diagnosis [facility] [address] [facility] [address] [place], [place] [address] 09/05/2024 Provider Migration Chronic GERD K21.9 Assessments Encounter Date Diagnosis (ICD Code) Assessment Notes Treatment Notes Treatment Clinical Notes Section Notes 09/05/2024 Chronic GERD (ICD-10 - K21.9) Plan Of Treatment Medication Medication Name Sig Start Date Stop Date Notes Rosuvastatin Calcium 10 MG 1 tab(s) oral ly once a day; Duration: 30 day(s) Allergy Relief (Cetirizine) 10 MG 1 tab(s) orally once a day; Duration: 30 days Famotidine 40 MG 1 tab(s) orally once a day (at bedtime); Duration: 90 days Jardiance 10 MG Take 1 tablet by once daily; Duration: 90 days metFORMIN HCl 500 MG 1 tab(s) orally onc e a day; Duration: 90 days Progress Notes * Lai CABALLERODOB: [birth year] (54 yo M)Acc No.[id number]:09/05/2024 Patient: Lai ROSALES Provider: Marck Rivera :1970 A ge:53 Y S ex:Male Date:09/05/2024 Address:[address] [place], [place] [address], [id number] Pcp:Shayla Peterson Subjective: * Chief Complaints: * 1 . Multum To Med[facility] Conversion Encounter. * Medical History: * Medications: T aking Multivitamin 1 TAB ONCE A DAY , Notes to Pharmacist: *Please review and pick correct strength-formulation from [employer] options. If intended option is not shown, discontinue and re-order from Quick Search*, Taking Vitamin A 10,000 UNITS 1 TAB PO QD , Notes to Pharmacist: *Please review and pick correct strength-formulation from [employer] options. If intended option is not shown, discontinue and re-order from Quick Search*, Taking Vitamin C 1000 MG Tablet 1 tab(s) orally once a day , Taking GLUCOMETER , Notes to Pharmacist: E11.9 *Please review for potential replacement for e-prescription and drug interaction check*, Taking Flonase Allergy Relief 50 MCG/ACT Suspension as directed in each nostril once a day , Taking Xanax 0.5 MG Tablet 1 tab(s) orally twice a day as needed for anxiety , Taking levETIRAcetam 500 MG Tablet 1 tab(s) orally 2 times a day , Taking Levothyroxine Sodium 137 MCG Tablet 1 tab(s) orally once a day , Taking TEST STRIPS AND LANCETS NA PER INSURANCE COVERAGE WITH GLUCOMETER ONCE A DAY NA ONCE A DAY , Notes to Pharmacist: E11.9 *Please review for potential replacement for e-prescription and drug interaction check*, Taking Diclofenac Sodium 1 % Gel 2 gram applied topically 4 times a day , Taking OZEMPIC 2 MG/3 ML (0.25 MG OR 0.5 MG DOSE) SOLUTION 0.5 MG SUBCUTANEOUSLY ONCE A WEEK , Notes to Pharmacist: *Please review for potential replacement for e-prescription and drug interaction check*, Taking rOPINIRole HCl 0.25 MG Tablet 1 tab(s) orally at night as needed for restless legs , Taking hydrOXYzine HCl 25 MG Tablet 1 tab orally every morning and once a day as needed for anxiety , Taking Pantoprazole Sodium 40 MG Tablet Delayed Release 1 tab(s) orally once a day Objective: * Vitals: Assessment: * Assessment: 1. C hronic GERD - K21.9 Plan: * Treatment: 2. O thers Start Rosuvastatin Calcium Tablet, 10 MG, 1 tab(s), orally, once a day, 30 day(s), 30, Refills 2;?Refill Jardiance Tablet, 10 MG, Take 1 tablet by mouth once daily, 90 days, 90 Tablet, Refills 1; S tart Allergy Relief (Cetirizine) Tablet, 10 MG, 1 tab(s), orally, once a day, 30 days, 30 Tablet, Refills 5; S tart metFORMIN HCl Tablet, 500 MG, 1 tab(s), orally, once a day, 90 days, 90 Tablet, Refills 1. * * Electronic signature of Prov caitr Migration on 04/28/2025 at 07:19 AM EST Sign off status: Pending * Provider: Marck sheridan Migration Date: 0 09/05/2024 Generated for Jenaro jensen/Guero/Devorah on: 06/28/2024 07:19 AM EST
--- OUTSIDE RECORDS SUMMARY | 2025-03-29 11:15 | XMS_ITS ---
[facility] Address [address] [place], [place] [address] Care Team Providers Care Stripe Marker Name Role Phone Shayla Peterson Primary Care Provider SHAYLA PETERSON Unavailable Unavaila ble REASON FOR VISIT 6 month check up Encounters Encounter Location Date Provider Diagnosis [facility] [address] [place], [place] [address] 03/29/2025 Shayla Peterson Plan Of Treatment No Information Progress Notes * Lai CABALLERODOB: [birth year] (54 yo M)Acc No.[id number]:03/29/2025 Progress Notes Patient: Lai ROSALES Provider: NOA Peres :1970 A ge:54 Y S ex:Male Date:03/29/2025 Address:[id number] Subjective: * Chief Complaints: * 1 . 6 month check up. * Medical History: Objective: * Vitals: Assessment: Plan: * Treatment: * * Electronic signature of Teresa Peterson APRN on 04/28/2025 at 07:20 AM EST Sign off status: Pending * Provider: NOA Peres Date: Generated for Jenaro jensen/Guero/eTransmitting on: 06/28/2024 07:20 AM EST
--- OUTSIDE RECORDS SUMMARY | 2025-04-28 07:20 | XMS_ITS ---
Author Organization [facility] Address [address] [place] [address] Phone Care Team Providers Care Room Service Server Name Role Phone Chantal MONTES, Bulmaro Coughlin Unavailable [phone] Problems Includes: Active, inactive, and resolved Problems All Visits Onset Date Resolved Date Provider Condition S tatus Joint Pain Shoulder Right 12/16/2023 Bulmaro Cornejo MD Active Last Documented On 4 1:52PM ; [facility] Plan of Treatment Instructions to patient Lose weight Last Documented On 4 8:26AM ; [facility] Lose weight Last Documented On 4 2:24PM ; [facility] Assessments Includes: Assessments for all patient encounters Findings Encounter Date Overweight Follow Up with Bulmaro agustin MD 02/22/2024 Last Documented On 4 1:53PM ; [facility] Overweight Physician Specified with Bulmaro Cornejo MD 12/16/2023 Last Documented On 4 1:38PM ; [facility] Instructions Includes: Instructions for all patient encounters Instructions to patient Lose weight Last Documented On 4 8:26AM ; [facility] Lose weight Last Documented On 4 2:24PM ; [facility] Medical Equipment - Implanted Devices Includes: Current and historical Devices No Medical Equipment Recorded Medications Includes: Current and historical Medications Current Medications (continue as prescribed) Rosuvastatin Calcium 10 MG O ral Tablet 12/13/2023 Provider: Shayla tan APRN Diagnosis: Last Documented On 4 1:53PM By Erin Donnelly ; [facility] metFORMIN HCl 500 MG Oral Tablet 12/09/2023 Provider : Shayla Peterson APRN Diagnosis: Last Documented On 4 1:53PM By Erin Donnelly ; [facility] hydrOXYzine HCl 25 MG Oral Tablet 12/01/2023 Provide r: Shayla Peterson APRN Diagnosis: Last Documented On 4 1:53PM By Erin Donnelly ; [facility] FreeStyle Lite Test In Vitro Strip 11/24/2023 Provid er: Shayla Peterson APRN Diagnosis: Last Documented On 4 1:53PM By Erin Donnelly ; [facility] Levothyroxine Sodium 175 MCG Oral Tablet 11/17/2023 Provider: LERBON ESTEVES MD (E) Diagnosis: Last Documented On 4 1:53PM By Erin Donnelly ; [facility] Sertraline HCl 50 MG Oral Tablet 11/10/2023 Provider : Shayla Peterson APRN Diagnosis: Last Documented On 4 1:53PM By Erin Donnelly ; [facility] Cetirizine HCl 10 MG Oral Tablet 11/06/2023 Provider : Diagnosis: Last Documented On 4 1:53PM By Erin Donnelly ; [facility] Past Medications on file Cetirizine HCl 10 MG Oral Tablet 12/06/2023 - 12/16/19 Provider: Diagnosis: Last Documented On 4 1:53PM By Erin Donnelly ; [facility] Sertraline HCl 50 MG Oral Tablet 12/06/2023 - 12/16/2023 Provider: Shayla cash APRN Diagnosis: Last Documented On 4 1:53PM By Erin Donnelly ; [facility] Medications Administered Includes: Administered Medications in patient's chart No Administered Medications Recorded Results Includes: Results from 04/28/2024 through 04/28/2025 No Results Recorded For Specified Dates History of Present Illness History of Present Illness not supported for this document type No History of Present Illness Recorded Social History Description Last Updated Alcohol use 12/16/2023 Last Documented On 4 1:38PM ; [facility] Caffeine use 12/16/2023 Last Documented On 4 1:38PM ; [facility] Not a current smoker. 12/16/2023 Last Documented On 4 1:38PM ; [facility] Not exercising regularly 12/16/2023 Last Documented On 4 1:38PM ; [facility] Not using drugs 12/16/2023 Last Documented On 4 1:38PM ; [facility] Recent change in diet low sugar/carb Last Documented On 4 1:38PM ; [facility] Smoking Status Unknown Procedures and Surgical History Surgical History Last Updated History of hernia repair 12/16/2023 Last Documented On 4 1:38PM ; [facility] Medical History Includes: Medical History in patient's chart Description Last Updated History of depression 12/16/2023 Last Documented On 4 1:38PM ; [facility] History of diabetes mellitus 12/16/2023 Last Documented On 4 1:38PM ; [facility] History of Heartburn / Acid Reflux 12/15 Last Documented On 4 1:38PM ; [facility] History of Thyroid Disease 12/16/2023 Last Documented On 4 1:38PM ; [facility] Family History Includes: Family History in patient's chart Description Last Updated Diabetes mellitus 12/16/2023 Last Documented On 4 1:38PM ; [facility] Family history of cancer 12/16/2023 Last Documented On 4 1:38PM ; [facility] Review of Systems Review of Systems not supported for this document type No Review of Systems Recorded Mental Status Description No anxiety Functional Status No Functional Status Recorded Physical Exam Physical Exam not supported for this document type No Physical Exam Recorded Allergies Includes: Active, inactive, and resolved Allergies No Known Allergies Insurance Includes: Active Insurance Policies Plan Name Member ID Group # Subscriber Relationship Effect anabel Dates 1 - Aetna [facility] [id number] Lai Caballero Self Clinical Notes Includes: Signed Clinical Notes starting from 05/17/2022 No Clinical Notes Recorded
--- OUTSIDE RECORDS SUMMARY | 2025-04-28 07:20 | XMS_ITS | Clinical Summary ---
Author Organization [facility] Address [address] [place] [address] Phone Care Team Providers Care Mud Jack Nozzle Worker Name Role Phone Chantal MONTES, Bulmaro Coughlin Unavailable Unavail able Reason for Visit and Chief Complaint The Chief Complaint is: right shoulder pain Problems Includes: Problems addressed during this encounter and other active Problems All Visits Onset Date Resolved Date Provider Condition S tatus Joint Pain Shoulder Right 12/16/2023 Bulmaro Cornejo MD Active Last Documented On 4 1:52PM ; [facility] Plan of Treatment Plan at this point for him to continue with home-based stretching protocol. I will continue to work on his sugars. I will see him back as needed - Last Documented On 02/26/2024 1:53PM ; [facility] Instructions to patient Lose weight Last Documented On 4 8:26AM ; [facility] Assessments Includes: Assessments from this encounter Findings - Overweight - Last Documented On 02/26/2024 1:53PM ; 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 Instructions Includes: Instructions from this encounter Instructions to patient Lose weight Last Documented On 4 8:26AM ; [facility] Medical Equipment - Implanted Devices Includes: Current Devices No Medical Equipment Recorded Medications Includes: Medications discussed during this encounter and other current Medications Current Medications (continue as prescribed) Rosuvastatin Calcium 10 MG O ral Tablet 12/13/2023 Provider: Shayla tan APRN Diagnosis: Last Documented On 4 1:53PM By Erin Donnelly ; [facility] metFORMIN HCl 500 MG Oral Tablet 12/09/2023 Provider : Shayla Peterson APRN Diagnosis: Last Documented On 4 1:53PM By Erin Donnelly ; [facility] hydrOXYzine HCl 25 MG Oral Tablet 12/01/2023 Provide r: Shayla Peterson ADI Diagnosis: Last Documented On 4 1:53PM By Erin Donnelly ; [facility] FreeStyle Lite Test In Vitro Strip 11/24/2023 Provid er: Shayla Elli Peterson APRN Diagnosis: Last Documented On 4 1:53PM By Erin Donnelly ; [facility] Levothyroxine Sodium 175 MCG Oral Tablet 11/17/2023 Provider: LEBRON ESTEVES MD (E) Diagnosis: Last Documented On 4 1:53PM By Erin Donnelly ; [facility] Sertraline HCl 50 MG Oral Tablet 11/10/2023 Provider : Shayla Peterson APRN Diagnosis: Last Documented On 4 1:53PM By Erin Donnelly ; [facility] Cetirizine HCl 10 MG Oral Tablet 11/06/2023 Provider : Diagnosis: Last Documented On 4 1:53PM By Erin Donnelly ; [facility] Medications Administered Includes: Administered Medications from this encounter No Administered Medications Recorded Vital Signs Includes: Vital Signs from this encounter Vital Name 02/22/2024 08:31A Height (in) 72 Weight (lb) 250 Body Mass Index 33.9 Body Surface Area 2.3 Note: ab Last Documented: On 02/22/2024 8:31AM ; [facility] Results Includes: Results discussed during this encounter No Results Recorded For Specified Dates History of Present Illness Includes: History of Present Illness from this encounter HPI Lai Caballero is a 53 year old [...] improve this. 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 Social History Description Last Updated Alcohol use 12/16/2023 Last Documented On 4 8:26AM ; [facility] Caffeine use 12/16/2023 Last Documented On 4 8:26AM ; [facility] Not a current smoker. 12/16/2023 Last Documented On 4 8:26AM ; [facility] Not exercising regularly 12/16/2023 Last Documented On 4 8:26AM ; [facility] Not using drugs 12/16/2023 Last Documented On 4 8:26AM ; [facility] Recent change in diet low sugar/carb Last Documented On 4 8:26AM ; [facility] Smoking Status Unknown Procedures and Surgical History Includes: Procedures from this encounter Procedures Code Diagnosis Performing Provider Service L ocation Service Date an X-ray was performed 33801 Last Documented On 4 8:26AM ; [facility] CT scan [id number] Last Documented On 4 8:26AM ; [facility] Surgical History Last Updated History of hernia repair 12/16/2023 Last Documented On 4 8:26AM ; [facility] Medical History Includes: Medical History addressed during this encounter Description Last Updated History of depression 12/16/2023 Last Documented On 4 8:26AM ; [facility] History of diabetes mellitus 12/16/2023 Last Documented On 4 8:26AM ; [facility] History of Heartburn / Acid Reflux 12/15 Last Documented On 4 8:26AM ; [facility] History of Thyroid Disease 12/16/2023 Last Documented On 4 8:26AM ; [facility] Family History Includes: Family History addressed during this encounter Description Last Updated Diabetes mellitus 12/16/2023 Last Documented On 4 8:26AM ; [facility] Family history of cancer 12/16/2023 Last Documented On 4 8:26AM ; [facility] Review of Systems Includes: Review of [...] Time Diagnosis Follow Up Bulmaro Cornejo MD [facility] B 4 8:26AM 8:39AM Overweight Insurance Includes: Active Insurance Policies Plan Name Member ID Group # Subscriber Relationship Effect anabel Dates 1 - Aetna [facility] [id number] Lai Caballero Self Clinical Notes Includes: Clinical Notes from this encounter * Progress note Date Encounter Last Documented by 02/22/2024 Follow Up Last documented on 02/26/2024; 1:53 PM, Bulmaro Cornejo MD; [facility] Active Problems & Conditions - Joint Pain, [...] improve this. His interval follow-up with his supervisor waterproofing has actually lengthened secondary to this some [...] Surface Area 2.3 m2 Alert and oriented -3 mood and affect are appropriate. Skin over [...]
--- OUTSIDE RECORDS SUMMARY | 2025-04-28 07:20 | XMS_ITS | Encounter Summary ---
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 Social History [...] GED or equivalent No 09/01/2022 Preferred Language Cymraes 09/01/2022 PHQ-2 Answer Date Recorded Retired PHQ-9: Brief Depression Severity Measure Score 0 09/01/2022 Sex and Gender Information Value Date Recorded Sex Assigned at Male 11/02/2024 11:25 AM EDT Legal Sex Male 6:21 PM EDT Gender Identity Not on file Sexual Orientation Not on file documented as of this encounter Miscellaneous Notes * Telephone Encounter - Chelsey Haines MA - 03/16/2025 9:18 AM EDT Rx Refill Note Requested Prescriptions Pending Prescriptions Disp Refills levothyroxine (SYNTHROID, LEVOTHROID) 175 MCG tablet [Pharmacy Med Name: Levothyroxine Sodium 175 MCG Oral Tablet] 30 tablet 3 Sig: Take 1 tablet by mouth once daily Last office visit with prescribing clinician: 02/19/2025 Next office visit with prescribing clinician: 08/20/2025 Chelsey Haines MA 03/16/25, 09:18 EDT documented in this encounter Plan of Treatment Upcoming Encounters Date Type Department Care Team (Late st Contact Info) Description 08/20/2025 10:00 AM EDT Office Visit [facility] ENDOCRINOLOGY [address] [id number] Juan J Duke MD [address] [address] 11/01/2025 1:00 PM EDT Office Visit [facility] NEUROLOGY [address] [facility] [address] [place] [address] Aracely Gil MD [address] [facility] [address] [place] [address] documented as of this encounter Visit Diagnoses Diagnosis 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
--- OUTSIDE RECORDS SUMMARY | 2025-04-28 07:20 | XMS_ITS | Encounter Summary ---
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
--- OUTSIDE RECORDS SUMMARY | 2025-04-28 07:20 | XMS_ITS ---
Care Plan - [facility] Created on: April 28, 2025 Lai Caballero : 1970 Sex: Male Author Organization [facility] Address [address] [place] [address] Phone Care Team Providers Care Scalp Treatment Specialist Name Role Phone Chantal MONTES, Bulmaro Coughlin Unavailable [phone]
--- OUTSIDE RECORDS SUMMARY | 2025-04-28 07:20 | XMS_ITS | Data Portability ---
Author Organization TONY - Natalie rivera, [facility] CLOSED Address [address] [facility] [address] [place] [address] Care Team Providers Care Hoof Trimmer Name Role Phone LISE MAKI Referring Provider [phone] ANTOINETTE PIZARRO Primary Care Provider ANTOINETTE PIZARRO Referring Provider Assessment Encounter Date Assessment Date Assessment LastModified by Organization Details LastModified Time 01/28/2025 01/28/2025 - 54-year-old conrado ferguson with diabetes mellitus presenting with erectile dysfunction. - Erectile dysfunction: Persistent for three years, likely related to diabetes. No prior treatment. Consider phosphodiesterase inhibitors. - Benign prostatic hyperplasia with outflow obstruction: Increased urinary frequency and nocturia. Daily medication may help. - Other obstructive and reflux uropathy: Considered due to urinary symptoms. [email or web address] Not available 01/28/2025 13:53:41 Plan of Treatment Reminders Order Date Submit Date Provider Last Modified By Organization Details Last Modified Time Details Appointments None recorded. Lab None recorded. Referral None recorded. Procedures None recorded. Surgeries None recorded. Imaging None recorded. Medication Orders tadalafil 5 mg tablet 2024 025 [facility], [address] [place], [address], 13:51:39 Patient TargetsNo targets recorded. Patient Instructions Encounter Date Encounter Id Patient Instructions Last Modified By Organization Details Last Modified Time 09/20/2022 [id number] 1. Trach replace d in office today. 2. We will refer to lithographers printer at [facility] for their opinion and possible decannulation. [email or web address] Not available 09/20/2022 18:16:23 Extensive discussion with patient and his . Tracheostomy care demonstrated with patient and and both were able to duplicate cannulation with the tracheostomy tube. Trach hygiene was explained [email or web address] Not available 09/20/2022 18:16:51 10/04/2022 [id number] 1. Discussed proper trach hygiene. 2. 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 - Maintain a healthy diet and exercise regularly to support overall health and improve symptoms. - Follow up in a few months to assess the effectiveness of the treatment plan. [email or web address] Not available 01/28/2025 13:53:42 Reason for Referral None Reported. Problems No Known Problems Procedures Surgical History Date Name Laterality Status Provider Name and Address Organization Details Recorded Time 09/21/19 Op Note completed JESSICA PENA MD [address] [place], [address], [facility] 09/20/2022 18:15:23 09/21/19 Laryngoscopy Flex completed JESSICA PENA MD [address] [place], [address], [facility] 09/20/2022 18:13:25 09/08/19 Tracheostomy inner cannula completed Sadie Lozano [facility] 09/20/2022 08:31:18 procedure on finger completed Sadie Lozano [facility] 09/20/2022 08:31:50 hernia repair completed Sadie Lozano [facility] 09/20/2022 08:31:57 Imaging Results None [...] Not Available No t Available levothyroxi ne 175 mcg tablet TAKE 1 TABLET BY MOUTH ONCE DAILY active Not Available Not Available No t Available promethazin e-DM 6.25 mg-15 mg/5 mL oral syrup TAKE 5 ML BY MOUTH EVERY 6 HOURS NEEDED FOR COUGH FOR 10 DAYS 01/28 completed Not Available Not Available Not Available ipratropium 0.5 mg-albutero l 3 mg (2.5 mg base)/3 mL nebulizatio n soln USE 3ML VIA NEBULIZER EVERY 6 HOURS NEEDED FOR SHORTNESS OF BREATH OR WHEEZING 01/28 completed Not Available Not Available Not Available cetirizine 10 mg tablet TAKE 1 TABLET BY MOUTH ONCE DAILY active Not Available Not Available No t Available ibuprofen 800 mg tablet TAKE 1 TABLET BY MOUTH THREE TIMES DAILY NEEDED FOR MODERATE PAIN active Not Available Not Available No t Available benzonatate 200 mg capsule TAKE 1 CAPSULE BY MOUTH THREE TIMES DAILY NEEDED FOR 7 DAYS 01/28 completed Not Available Not Available Not Available levetiracet am 500 mg tablet TAKE 1 TABLET BY MOUTH EVERY 12 HOURS FOR SEIZURE 01/28 completed Not Available Not Available Not Available FreeStyle Lancets 28 gauge USE 1 TO CHECK GLUCOSE ONCE DAILY active Not Available Not Available No t Available famotidine 40 mg tablet TAKE 1 TABLET BY MOUTH AT BEDTIME active Not Available Not Available No t Available Euthyrox 100 mcg tablet TAKE 1 TABLET BY MOUTH IN THE MORNING FOR 30 DAYS 01/28 completed Not Available Not Available Not Available alprazolam 0.5 mg tablet TAKE 1 TABLET BY MOUTH TWICE DAILY NEEDED FOR ANXIETY active Not Available Not Available No t Available ropinirole 0.25 mg tablet TAKE 1 TABLET BY MOUTH ONCE DAILY AT NIGHT NEEDED FOR RESTLESS LEGS active Not Available Not Available No t Available benzonatate 100 mg capsule TAKE 1 CAPSULE BY MOUTH THREE TIMES DAILY NEEDED FOR COUGH 01/28 completed Not Available Not Available Not Available levothyroxi ne 50 mcg tablet TAKE 1 TABLET BY MOUTH ONCE DAILY 09/20 completed Not Available Not Available Not Available pantoprazol e 40 mg tablet,nanda yed release TAKE 1 TABLET BY MOUTH ONCE DAILY active Not Available Not Available No t Available hydroxyzine HCl 25 mg tablet TAKE 1 TABLET BY MOUTH ONCE DAILY IN THE MORNING AND ONCE A DAY NEEDED FOR ANXIETY active Not Available Not Available No t Available fluticasone propionate 50 mcg/actuati on nasal spray,suspe nsion USE 1 SPRAY(S) IN EACH NOSTRIL ONCE DAILY 01/28 completed Not Available Not Available Not Available sertraline 50 mg tablet TAKE 1 TABLET BY MOUTH ONCE DAILY active Not Available Not Available No t Available cyclobenzap rine 5 mg tablet TAKE 1 TABLET BY MOUTH TWICE DAILY NEEDED FOR MUSCLE SPASM FOR 14 DAYS 09/20 completed Not Available Not Available Not Available rosuvastati n 10 mg tablet TAKE 1 TABLET BY MOUTH ONCE DAILY active Not Available Not Available No t Available tadalafil 5 mg tablet Take by oral route for 30 days. active Not Available Not Available No t Available FreeStyle Lite Meter kit USE DIRECTED active Not Available Not Available No t Available FreeStyle Lite Strips USE 1 STRIP TO CHECK GLUCOSE ONCE DAILY active Not Available Not Available No t Available Jardiance 10 mg tablet TAKE 1 TABLET BY MOUTH ONCE DAILY 01/28 completed Not Available Not Available Not Available Jardiance 25 mg tablet TAKE 1 TABLET BY MOUTH ONCE DAILY active Not Available Not Available No t Available Ozempic 2 mg/dose (8 mg/3 mL) subcutaneou s pen injector INJECT 2MG SUBCUTANE OUSLY ONCE A WEEK active Not Available Not Available No t Available Vitals Date Recorded Body height Body mass index (BMI) Body weight Body temperature Provider Name and Address Organization Details Last Updated DateTime 09/20/2022 185.42 cm 29 kg/m2 92357.32 g 97.3 [degF] [facility] 09/20/2022 08:39:55 Date Recorded Body height Body mass index (BMI) Body weight Body temperature Heart rate Systolic And Diastolic Provider Name and Address Organization Details Last Updated DateTime 185.42 cm 29.4 kg/m2 493005. 1 g 97.7 [degF] 92 /min 128/75 mm[Hg] [facility] 15:18:10 Date Recorded Body height Body mass index (BMI) Body weight Provider Name and Address Organization Details Last Updated DateTime 01/28/2025 185.42 cm 31.7 kg/m2 360777.17 g Diandra Corbin [facility] 01/28/2025 13:07:24 Social History Question Answer Notes LastModified by Organizat ion Details LastModified Time Tobacco Smoking Status Never Smoker Diandra mann, [facility] 01/28/2025 13:11:55 What Was The Date Of Your Most Recent Tobacco Screening? 01/28/2025 [email or web address] Information not available 01/28/2025 Sex: Male Functional Status Question Answer Note LastModified by Organization D etails LastModified Time What is your level of alcohol consumption? None [email or web address] Information not available 09/20/2022 Mental Status None recorded. Family History Relationship Description Onset Age of this Age Resolved Age Notes LastModified by Organization Details LastModified Time Sister Diabetes mellitus [email or web address] Not available 09/20 08:30:10 Sister Disorder of thyroid gland [email or web address] Not available 09/20 08:30:18 Medical History Condition Response Coronary Artery Disease N Other N Gout N Kidney Cyst N Kidney Stones N Enlarged Prostate N Heart Arrhythmia N Erectile Dysfunction Y Head Trauma/Injury N Emphysema N Sexually Transmitted Disease N Depression Y Pneumonia N Incontinence N Prostate Problems N Cancer Prostate N Paralysis N Anxiety Disorder Y Hemorrhoids N Obesity Y Arthritis N Infertility N Acid Reflux (GERD) Y Cancer N Hematuria N Stroke N Neck Injury N Previous Radiation Therapy? N Neurologic Disorder N Kidney Disease N Heart Conditions N If you get up at night to urinate, how m any times? Y Kidney or Bladder Problems N Constipation N Urinary Problems N Brain Injury N Ulcers N Do you get up at night to urinate? Y Prostate Hypertrophy N Low Testosterone N Tuberculosis N Previous Chemotherapy? N AIDS/HIV N BPH N Urinary Tract Infection N Asthma N Cardiac Disease N Thyroid Disorder Y Hepatitis N PCOS N Colon Cancer N Hernia N Colon/Rectal Disorders N Ostomy N Glaucoma N Pacemaker N Anesthesia Complications N Genitourinary Disease N Chronic Kidney Disease N Radiation Therapy N Bladder or Kidney Problems N Back Injury N High Cholesterol Y High PSA N Liver Disease N Nervous System Disorder N Organ Transplant N Dialysis N Allergies/Hayfever Y False Teeth N Chronic Obstructive Pulmonary Disease N Parkinson's Disease N Chemotherapy N Thyroid Problems Y Transplant N Anemia N Multiple Sclerosis N Chest Pain N Back Pain Y Proteinuria N Heart Attack (WA) N Mental Illness N Diabetes Y Ovarian Cancer N Seizures/Epilepsy N Genitourinary problem(s) N Congestive Heart Failure (CHF) N Kidney Failure N Sleep Apnea N Bronchitis N Heart Disease N Hypertension N Past Encounters Encounter ID Performer Location Encounter Start Date Encounter Closed Date Diagnosis/Indication Diagnosis SNOMED-CT Code Diagnosis ICD10 Code Diagnosis IMO Codes Diagnosis Note [id number] JESSICA PENA MD [facility] [address] [place] [address] 09/20/2022 08:10:20 09/20/2022 09:40:29 Tracheostomy present 864854618 Z93.0 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 [id number] JESSICA PENA MD [facility] [address] [place] [address] 10/04/2022 14:32:30 10/04/2022 16:01:58 Tracheostomy present 097672960 Z93.0 Placed by general surgery 09/07/2022 after 2 failed extubation attempts in ICU 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 - Discussed as-needed versus daily medication for spontaneit y and urinary symptom improvemen t. Benign pro static hyperplasia with outflow obstruction 926884907 N13.8 N40.1 [id number] - Consider daily low-dose medication for urinary symptom improvemen t and erectile function benefits. - Monitor urinary symptoms and consider further evaluation if symptoms persist or worsen. Health Concerns Section Related Observation LastModified by Organization Detai ls LastModified Time None Recorded Concern Status LastModified by Organization Details LastModified Time None Recorded Advance Directives Directive None Recorded Payers Insurance Date Sequence Insurance Name Policy Number Policy Huff Covered Member ID Huff Member ID Guarantor Name 01/13/2025 1 [employer] [facility] (MEDICAID HMO) Lai Caballero [id number] Lai Caballero 02/09/2025 GENERIC INSURANCE - MOVED-HOLD Lai Caballero 01/29/2025 1 [place] Lai Caballero [id number] Lai Caballero 04/12/2025 1 [employer] - GOLD PLUS (MEDICARE REPLACEMENT/ ADVANTAGE - HMO) Lai Caballero [id number] Lai Caballero 02/09/2025 1 [employer] (MEDICARE REPLACEMENT/ ADVANTAGE - HMO) Lai Caballero [id number] Lai Caballero Notes Date Note Type Note [...] tube change and reassessment. JESSICA PENA MD [address] [place] [address], [phone], [facility] 09/20/2022 18:19:23 10/04/2022 text/html Lai is a 52 year old male who visits us in office today to follow up on his trache. Lai states that he still gets coughing attacks occasionally but has otherwise been doing well since his last visit. JESSICA PENA MD [address] [place] [address], [phone], [facility] 10/04/2022 18:14:30 01/28/2025 text/html The patient is a 54-year-old male presenting with erectile dysfunction. Symptoms have persisted for three years, with difficulty maintaining an erection. No pain with erection or ejaculation, and no prior use of erectile dysfunction medications. Urination occurs every two to three hours, with increased frequency when consuming fluids. Denies dysuria or hematuria, with nocturia two to four times per night. History of diabetes mellitus contributing to erectile dysfunction. Also has thyroid disease and legal blindness. Previous hospitalization for 27 days, including 19 days in ICU, due to temporary loss of function and cognition. Documentation on this patient encounter was supported using voice-enabled Al technology. The patient consented to recording for the purpose of documenting the encounter. Provider reviewed content of the generated note prior to signature. JUVENTINO LEARY MD [address] [place] [address], [phone], [facility] 02/07/2025 15:19:36
--- OUTSIDE RECORDS SUMMARY | 2025-04-28 07:20 | XMS_ITS | Encounter Summary ---
[facility] Address [address] [place] [address] Care Team Providers Care Physical Therapy Technician Name Role Phone Zach Faust MD Primary Care Provider + [phone] Encounter Details Date Type Department Care Team (Late st Contact Info) Description 04/12/2025 Telephone [facility] ENDOCRINOLOGY [address] [facility] [address] [place] [address] Juan J Duke MD [address] [facility] [address] [place] [address] Social History Tobacco Use Types Packs/Day Years [...] GED or equivalent No 09/01/2022 Preferred Language Turkmen 09/01/2022 PHQ-2 Answer Date Recorded Retired PHQ-9: Brief Depression Severity Measure Score 0 09/01/2022 Sex and Gender Information Value Date Recorded Sex Assigned at Male 11/02/2024 11:25 AM EDT Legal Sex Male 6:21 PM EDT Gender Identity Not on file Sexual Orientation Not on file documented as of this encounter Miscellaneous Notes * Telephone Encounter - Apolonia Matias MA - 04/12/2025 9:32 AM EST Patient called stating pharmacy states they do not have the new updated Metformin rx that was sent in back in February. Will resend rx. documented in this encounter Plan of Treatment Upcoming Encounters Date Type Department Care Team (Late st Contact Info) Description 08/20/2025 10:00 AM EDT Office Visit [facility] ENDOCR[facility]Y [address] [phone] Juan J Duke MD [address] [address] 11/01/2025 1:00 PM EDT Office Visit [facility] NEUROLOGY [address] [facility] [address] [place] [address] Aracely Gil MD [address] [facility] [address] [place] [address] documented as of this encounter Visit Diagnoses Not on filedocumented in this encounter Care Teams Physical Therapy Technician Relationship Specialty Start Date End Date Zach Faust MD [address] [facility] [address] [place] [id number] PCP - General Adolescent Medicine 08/23/22 documented as of this encounter
--- OUTSIDE RECORDS SUMMARY | 2025-04-28 07:20 | XMS_ITS | Clinical Summary ---
Author Organization Healthcare Address [address] [place] [address] Care Team Providers Care Painter Assistant Name Role Phone Zach Faust MD Primary Care Provider + [phone] Allergies No known active allergies Medications ALPRAZolam [...] DAYS 3 Active Vitamin A 3 MG (03075 UT) capsule Take 10,000 Units by mouth [...] [facility]-Zoster Vaccines (2 of 2) 01/06/2023 11/11/2022 [id number] Vaccine (4 - 2024- season) 2025 04/29/2021, 09/16/2020, 08/19/2020 [facility]-Influenza Vaccine (#1) 2025 [...] patient's age to complete this topic Insurance [facility] MEDICAID Care Teams Painter Assistant Relationship Specialty Start Date End Date Zach Faust MD [address] [place] [address] [place] [address] PCP - General Internal Medicine 09/18/22
--- OUTSIDE RECORDS SUMMARY | 2025-04-28 07:20 | XMS_ITS | Encounter Summary ---
[facility] [address] [place] [address] Care Team Providers Care Chief Embalmer Name Role Phone Zach Faust MD Primary Care Provider + [phone] Encounter Details Date Type Department Care Team (Late st Contact Info) Description 02/22/2025 Results Follow-Up [facility] ENDOCRINOLOGY [address] [place] [phone] Juan J Duke MD [address] [place], [place] [address] [address] Social History Tobacco Use Types Packs/Day [...] GED or equivalent No 09/01/2022 Preferred Language Thai 09/01/2022 PHQ-2 Answer Date Recorded Retired PHQ-9: [...] Description 08/20/2025 10:00 AM EDT Office Visit [facility] ENDOCRINOLOGY [address] [address] Juan J Duke MD [address] [facility] 50 [place] [address] 11/01/2025 1:00 PM EDT Office Visit [facility] NEUROLOGY [address] [facility] 204 [place] [address] Aracely Gil MD [address] [facility] 204 [place] [address] documented as of this encounter Visit Diagnoses Not on filedocumented in this encounter Care Teams Chief Embalmer Relationship Specialty Start Date End Date Zach Faust MD [address] [facility] [address] [facility] [address] [place] [address] PCP - General Adolescent Medicine 08/23/22 documented as of this encounter
--- OUTSIDE RECORDS SUMMARY | 2025-04-28 07:20 | XMS_ITS | Encounter Summary ---
[facility] Organization [facility] Address [address] [place] [address] Care Team Providers Care Cotton Opener Name Role Phone Zach Faust MD Primary Care Provider + [phone] Encounter Details Date Type Department Care Team (Late st Contact Info) Description 04/20/2025 Telephone [facility] END[facility]CRINOLOGY [address] [facility] 100 [place] [address] Juan J Duke MD [address] [facility] 50 [place] [address] Social History Tobacco Use Types [...] GED or equivalent No 09/01/2022 Preferred Language Mosotho 09/01/2022 PHQ-2 Answer Date Recorded Retired PHQ-9: Brief Depression Severity Measure Score 0 09/01/2022 Sex and Gender Information Value Date Recorded Sex Assigned at Male 11/02/2024 11:25 AM EDT Legal Sex Male 6:21 PM EDT Gender Identity Not on file Sexual Orientation Not on file documented as of this encounter Miscellaneous Notes * Telephone Encounter - Minerva Fraga MA - 04/21/2025 8:29 AM EST Spoke to patient and told him we did not have any samples of the Ozempic. He stated he had another week of medication and he will call us next week to see if we can refill it for him then. * Telephone Encounter - Sagar Shields PCT - 04/20/2025 2:40 PM EST PT CALLED STATING HE WENT TO INJECT OZEMPIC AND IT DIDN'T INJECT. HE REQUESTED A SAMPLE OF OZEMPIC. documented in this encounter Plan of Treatment Upcoming Encounters Date Type Department Care Team (Late st Contact Info) Description 08/20/2025 10:00 AM EDT Office Visit [facility] ENDOCRINOLOGY [address] [address] Juan J Duke MD [address] [address] 11/01/2025 1:00 PM EDT Office Visit [facility] NEUROLOGY [address] [facility] 204 [place] [address] Aracely Gil MD 210 [facility] 204 [place] [address] documented as of this encounter Visit Diagnoses Not on filedocumented in this encounter Care Teams Cotton Opener Relationship Specialty Start Date End Date Zach Faust MD 12[address] [facility] [address] [facility] [address] [place] [address] PCP - General Adolescent Medicine 08/23/22 documented as of this encounter
--- OUTSIDE RECORDS SUMMARY | 2025-04-28 07:20 | XMS_ITS | Clinical Summary ---
Author Organization [facility] , [facility] Address [address] [place] [phone] Phone Care Team Providers Care Clinical Rn Manager Name Role Phone Chantal MONTES, Bulmaro Coughlin Unavailable Unavail able Reason for Visit and Chief Complaint Physician Specified Problems Includes: Problems addressed during this encounter and other active Problems Current Visit Onset Date Resolved Date Provider Jass kathleen Status Joint Pain Shoulder Right 12/16/2023 Bulmaro Cornejo MD Active Last Documented On 4 1:52PM ; [facility], [facility] Plan of Treatment Plan will [...] - Last Documented On 12/22/2023 1:38PM ; [facility] Pending Tests Order Diagnosis Results Due Ordering P rovider Therapy - Physical Therapy Shoulder 12/16/23 Bulmaro Cornejo MD Last Documented On 4 1:38PM ; [facility], [facility] Instructions to patient Lose weight Last Documented On 4 2:24PM ; [facility], [facility] Assessments Includes: Assessments from this encounter Findings - Overweight - Last Documented On 12/22/2023 1:38PM ; [facility], [facility] 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 - Last Documented On 12/22/2023 1:38PM ; [facility], [facility] Instructions Includes: Instructions from this encounter Instructions to patient Lose weight Last Documented On 4 2:24PM ; [facility], [facility] Medical Equipment - Implanted Devices Includes: Current Devices No Medical Equipment Recorded Medications Includes: Medications discussed during this encounter and other current Medications Discontinued / Stopped on this date on 12/06/2023 Cetirizine HCl 10 MG Oral Tablet Provider : Diagnosis: Last Documented On 4 1:53PM By Erin Donnelly ; [facility], [facility] Sertraline HCl 50 MG Oral Tablet Provider : Shayla Peterson APRN Diagnosis: Last Documented On 4 1:53PM By Erin Donnelly ; [facility], [facility] Current Medications (continue as prescribed) Rosuvastatin Calcium 10 MG O ral Tablet 12/13/2023 Provider: Shayla tan APRN Diagnosis: Last Documented On 4 1:53PM By Erin Donnelly ; [facility], [facility] metFORMIN HCl 500 MG Oral Tablet 12/09/2023 Provider : Shayla Peterson APRN Diagnosis: Last Documented On 4 1:53PM By Erin Donnelly ; [facility], [facility] hydrOXYzine HCl 25 MG Oral Tablet 12/01/2023 Provide r: Shayla Peterson APRN Diagnosis: Last Documented On 4 1:53PM By Erin Donnelly ; [facility], [facility] FreeStyle Lite Test In Vitro Strip 11/24/2023 Provid er: Shayla Peterson APRN Diagnosis: Last Documented On 4 1:53PM By Erin Donnelly ; [facility], [facility] Levothyroxine Sodium 175 MCG Oral Tablet 11/17/2023 Provider: LEBRON ESTEVES MD (Louis) Diagnosis: Last Documented On 4 1:53PM By Erin Donnelly ; [facility], [facility] Sertraline HCl 50 MG Oral Tablet 11/10/2023 Provider : Shayla Peterson APRN Diagnosis: Last Documented On 4 1:53PM By Erin Donnelly ; [facility] Cetirizine HCl 10 MG Oral Tablet 11/06/2023 Provider : Diagnosis: Last Documented On 4 1:53PM By Erin Donnelly ; [facility] Medications Administered Includes: Administered Medications from this [...] Documented On 4 1:38PM ; [facility] Not using drugs 12/16/2023 Last Documented On 4 1:38PM ; [facility] Recent change in diet low sugar/carb Last Documented On 4 1:38PM ; [facility] Smoking Status Unknown Procedures and Surgical History Includes: Procedures from this encounter Procedures Code Diagnosis Performing Provider Service L ocation Service Date an X-ray was performed 28099 Last Documented On 4 2:22PM ; [facility] CT scan [address]353 Last Documented On 4 2:22PM ; [facility] Surgical History Last Updated History of hernia repair 12/16/2023 Last Documented On 4 1:38PM ; [facility] Medical History Includes: Medical History addressed during this encounter Description Last Updated History of depression 12/16/2023 Last Documented On 4 1:38PM ; [facility] History of diabetes mellitus 12/16/2023 Last Documented On 4 1:38PM ; [facility] History of Heartburn / Acid Reflux 12/15 Last Documented On 4 1:38PM ; [facility] History of Thyroid Disease 12/16/2023 Last Documented On 4 1:38PM ; [facility] Family History Includes: Family History addressed during this encounter Description Last Updated Diabetes mellitus 12/16/2023 Last Documented On 4 1:38PM ; [facility] Family history of cancer 12/16/2023 Last Documented On 4 1:38PM ; [facility], [facility] Review of Systems Includes: Review [...] Time Diagnosis Physician Specified Bulmaro Cornejo MD [facility] 12/16/19 24 1:50PM 2:00PM Overweight Insurance Includes: Active Insurance Policies Plan Name Member ID Group # Subscriber Relationship Effect anabel Dates 1 - [employer] [facility] [id number] Lai Caballero Self Clinical Notes Includes: Clinical Notes from this encounter * Progress note Date Encounter Last Documented by 12/16/2023 Physician Specified Last grace crawley on 12/22/2023; 1:38 PM, Bulmaro Cornejo MD; [facility], [facility] Active Problems & Conditions - [...]
--- OUTSIDE RECORDS SUMMARY | 2025-04-28 07:21 | XMS_ITS | Clinical Summary ---
Author Organization [facility] Address [address] [place] [id number] Phone Care Team Providers Care Start Up Specialist Name Role Phone Unavailable Unavailable Conditions or Problems No information available. Medications No information available. Medications Administered No information available. Allergies, Adverse Reactions, Alerts No information available. Results No information available. Plan of Care No information available. Procedures No information available. Vital Signs No information available. Immunizations No information available. Advance Directives No information available.
--- NOTE | 2025-04-28 07:22 | CT_ITS ---
FINAL REPORT TECHNIQUE: Thin section axial images were obtained from the lung bases to the pubic symphysis without IV contrast. Oral contrast was given. Coronal reconstruction images were obtained from the axial data. Exam was performed using dose reduction technique. CLINICAL HISTORY: HX OF DIGESTIVE DISEASE, umbilical pain FINDINGS: There is an incidental, 27 mm pericardial cyst adjacent to the right ventricle. There are no renal or ureteral stones. There is no hydronephrosis or perinephric stranding. The gallbladder is present. The remaining unenhanced solid abdominal organs are unremarkable. The stomach is filled with ingested debris. There is no evidence of small bowel obstruction. The appendix is normal. There are mildly prominent portal lymph nodes. No acute osseous abnormality is identified. IMPRESSION: No renal or ureteral stones. No hydronephrosis. No acute intra-abdominal abnormality. Reviewed, Interpreted and Dictated by Susan Shipley MD Transcribed by Mignon Haddad Authenticated and [facility]
--- OUTSIDE RECORDS SUMMARY | 2025-04-28 07:22 | XMS_ITS | Continuity of Care Document ---
Author Organization [facility] Address [address] [place] [address] Care Team Providers Care Construction Contractor Name Role Phone LISE MAKI Referring Provider [phone] ANTOINETTE PIZARRO Primary Care Provider [phone] ANTOINETTE PIZARRO Referring Provider [phone] Assessment Encounter Date Assessment Date Assessment LastModified [...] Orders tadalafil 5 mg tablet [address] [facility] 591, [address] [place], [address], 13:51:39 Patient TargetsNo targets recorded. Patient Instructions Encounter Date Encounter Id Patient Instructions Last Modified By Organization Details Last Modified Time 01/28/2025 [id number] learning about healthy weight [id number] Not available 01/28/2025 13:51:28 - Take prescribe [...] Op Note completed JESSICA PENA MD [address] [place], [address], [facility] 09/20/2022 18:15:23 09/21/19 Laryngoscopy Flex completed JESSICA PENA MD [address] [place], [address], [facility] 09/20/2022 18:13:25 09/08/19 Tracheostomy inner cannula completed Sadie [facility] 09/20/2022 08:31:18 procedure on finger completed Sadie [facility] 09/20/2022 08:31:50 hernia repair completed Sadie Lozano [facility] 09/20/2022 08:31:57 Imaging [...] Updated DateTime 01/28/2025 185.42 cm 31.7 kg/m2 65[facility] 01/28/2025 13:07:24 Social History Question Answer Notes LastModified by Organizat ion Details LastModified Time Tobacco Smoking Status Never Smoker Diandra Corbin [facility] 01/28/2025 13:11:55 What Was The Date Of Your Most Recent Tobacco Screening? 01/28/2025 [email or web address] Information not available 01/28/2025 Sex: Male Functional Status Question Answer Note LastModified by Organization D etails LastModified Time What is your level of alcohol consumption? None [email or web address] Information not available 09/20/2022 Mental Status None recorded. Family History Relationship Description Onset Age of this Age Resolved Age Notes LastModified by Organization Details LastModified Time Sister Diabetes mellitus [email or web address] Not available 09/20 08:30:10 Sister Disorder of thyroid gland [email or web address] Not available 09/20 08:30:18 Medical History Condition Response Coronary Artery Disease N Other N Gout N Kidney Cyst N Kidney Stones N Enlarged Prostate N Heart Arrhythmia N Emphysema N Head Trauma/Injury N Erectile Dysfunction Y Sexually Transmitted Disease N Depression Y Pneumonia N Incontinence N Prostate Problems N Cancer Prostate N Paralysis N Anxiety Disorder Y Hemorrhoids N Obesity Y Arthritis N Infertility N Acid Reflux (GERD) Y Hematuria N Cancer N Stroke N Neck Injury N Neurologic Disorder N Previous Radiation Therapy? N Kidney Disease N Heart Conditions N [...] N Anesthesia Complications N Genitourinary Disease N Radiation Therapy N Chronic Kidney Disease N Bladder or Kidney Problems N Back Injury N High Cholesterol Y High PSA N Nervous System Disorder N Liver Disease N Organ Transplant N Dialysis N Allergies/Hayfever Y False Teeth N Chronic Obstructive Pulmonary Disease N Parkinson's Disease N Chemotherapy N Thyroid Problems Y Anemia N Transplant N Back Pain Y Chest Pain N Multiple Sclerosis N Proteinuria N Heart Attack (LA) N Mental Illness N Ovarian Cancer N Diabetes Y Seizures/Epilepsy N Genitourinary problem(s) N Congestive Heart Failure (CHF) N Kidney Failure N Sleep Apnea N Bronchitis N Heart Disease N Hypertension N Past Encounters Encounter ID Performer Location Encounter Start Date Encounter Closed Date Diagnosis/Indication Diagnosis SNOMED-CT Code Diagnosis ICD10 Code Diagnosis IMO Codes Diagnosis Note [id number] JUVENTINO LEARY MD [facility] [address] [place] [address],[place] [address] 01/28/2025 12:43:08 01/28/2025 18:45:56 Primary erectile dysfunction 923635689 N52.9 [id number] - Consider phosphodie sterase inhibitors for erectile function improvemen t. - Discussed as-needed versus daily medication for spontaneit y and urinary symptom improvemen t. Benign pro static hyperplasia with outflow obstruction 467768436 N13.8 N40.1 [id number] - Consider daily low-dose medication for urinary symptom improvemen t and erectile function benefits. - Monitor urinary symptoms and consider further evaluation if symptoms persist or worsen. Health Concerns Section Related Observation LastModified by Organization Detai ls LastModified Time None Recorded Concern Status LastModified by Organization Details LastModified Time None Recorded Payers Encounter Date Sequence Insurance Name Policy Number Policy Huff Covered Member ID Huff Member ID Guarantor Name 01/28/2025 1 [employer]OH[employer] (MEDICARE REPLACEMENT/ ADVANTAGE - HMO) Lai Caballero [id number] Lai Caballero Notes Date Note Type Note Provider Name and Address Organization Details Recorded Time 01/28/2025 text/html The patient is a 54-year-old [...] note prior to signature. JUVENTINO LEARY MD [address] [place] [address], [phone], [facility] 02/07/2025 15:19:36
--- OUTSIDE RECORDS SUMMARY | 2025-04-28 07:22 | XMS_ITS | Patient Health Record ---
Author Organization [facility] Address [address] [place] [address] Care Team Providers Care Polymerization Helper Name Role Phone Chase Peterson Primary Care Provider CHASE PETERSON Unavailable Unavaila Zach Alegre Unavailable [phone] Migration, Provider Unavailable Unavailable Allergies No Known Allergies Results Component Value Reference Range Notes THYROID PANEL WITH TSH (7444 ) Reviewed date:01/09/2025 11:15:57 AM Interpretation: Performing Lab:[facility]O [facility] [id number] [address] [facility] CenterDfaeWT[address] Lai Daniels Notes/Report: NON-FASTING; NON-FASTING; NON-FASTING; NON-FASTING; NON-FAST T3 UPTAKE 30 22-35 % T4 (THYROXINE), TOTAL 8.3 4.9-10.5 mcg/dL FREE T4 INDEX (T7) 2.5 1.4-3.8 TSH 1.68 0.40-4.50 mIU/L BASIC METABOLIC PANEL (64223 ) Reviewed date:01/09/2025 11:16:48 AM Interpretation: Performing Lab:[facility] [id number] [employer] CenterLiovLH[address] Lai Daniels Notes/Report: NON-FASTING; NON-FASTING; NON-FASTING; NON-FASTING; NON-FAST GLUCOSE 159 65-99 mg/dL For someone without known diabetes, a glucose follow-up test. value >125 mg/dL indicates that they may have diabetes and this should be confirmed with a Fasting reference interval UREA NITROGEN (BUN) 17 7-25 mg/dL CREATININE 1.01 0.70-1.30 mg/dL EGFR 87 > OR = 60 mL/min/1.73m2 BUN/CREATININE RATIO SEE NOTE: 6-22 (calc) Not Reported: BUN and Creatinine are within reference range. SODIUM 137 135-146 mmol/L POTASSIUM 4.6 3.5-5.3 mmol/L CHLORIDE 101 98-110 mmol/L CARBON DIOXIDE 28 20-32 mmol/L CALCIUM 9.8 8.6-10.3 mg/dL MAGNESIUM (622) Reviewed date:01/09/2025 11:16:37 AM Interpretation: Performing Lab:R[facility]ERT[facility] [id number] [employer], [employer]EfolDX[address] Lai Daniels Notes/Report: NON-FASTING; NON-FASTING; NON-FASTING; NON-FASTING; NON-FAST MAGNESIUM 2.3 1.5-2.5 mg/dL HEMOGLOBIN A1c (496) Reviewed date:01/09/2025 11:16:24 AM Interpretation: Performing Lab:[facility] [address], ExabloxHvqrTJ[address] Lai Daniels Notes/Report: NON-FASTING; NON-FASTING; NON-FASTING; NON-FASTING; NON-FAST HEMOGLOBIN A1c 7.9 <5.7 % value of 6.5% or greater indicates that they may have control. A1c targets should be individualized based on duration of diabetes, age, comorbid conditions, and that their diabetes is well controlled and a value greater than or equal to 7% indicates suboptimal For someone with known diabetes, a value <7% indicates diabetes and this should be confirmed with a follow-up Currently, no consensus exists regarding use of test. For someone without known diabetes, a hemoglobin A1c hemoglobin A1c for diagnosis of diabetes for children. other considerations. TESTOSTERONE, TOTAL, MALES ( ADULT), IA (663) Reviewed date:01/09/2025 11:15:46 AM Interpretation: Performing Lab:ROBERTO, [facility] [id number], imageloopKvpcEO[address] Lai Daniesl Notes/Report: NON-FASTING; NON-FASTING; NON-FASTING; NON-FASTING; NON-FAST TESTOSTERONE, TOTAL, MALES (ADULT), IA 591 250-827 ng/dL Microalbumin (In-House) Reviewed date:09/10/2024 09:18:12 AM Interpretation: Performing Lab: Notes/Report: ALB 10mg CRE 50mg A:C <30mg THYROID PANEL WITH TSH (7444 ) Reviewed date:09/10/2024 02:45:59 PM Interpretation: Performing Lab:ROBERTO, [address]Cy[address]re[address], ExabloxMjefIQ[address] Lai Daniels Notes/Report: NON-FASTING; NON-FASTING; NON-FASTING; NON-FASTING; NON-FAST T3 UPTAKE 31 22-35 % T4 (THYROXINE), TOTAL 10.0 4.9-10.5 mcg/dL FREE T4 INDEX (T7) 3.1 1.4-3.8 TSH 0.95 0.40-4.50 mIU/L LIPID PANEL, STANDARD (7600) Reviewed date:09/10/2024 02:45:59 PM Interpretation: Performing Lab:ROBERTO, [address]re[address] [employer], ExabloxWyohSY[address] Lai Daniels Notes/Report: NON-FASTING; NON-FASTING; NON-FASTING; NON-FASTING; NON-FAST CHOLESTEROL, TOTAL 120 <200 mg/dL HDL CHOLESTEROL 26 > OR = 40 mg/dL TRIGLYCERIDES 346 <150 mg/dL If a non-fasting specimen was collected, consider Manpreet et al. J. of Clin. Lipidol. 2015;9:129-169. repeat triglyceride testing on a fasting specimen if clinically indicated. LDL-CHOLESTEROL 58 estimation of LDL-C. Reference range: <100 (http://education.Apervita/faq/SAX264) with > or = 2 CHD risk factors. calculation, which is a validated novel method providing Ryne SS et al. RIVERA. 2013;310(19): 7161-7230 <70 mg/dL for patients with CHD or diabetic patients better accuracy than the Friedewald equation in the LDL-C is now calculated using the [facility] Desirable range <100 mg/dL for primary prevention; CHOL/HDLC RATIO 4.6 <5.0 (calc) NON HDL CHOLESTEROL 94 <130 mg/dL (calc) factor, treating to a non-HDL-C goal of <100 mg/dL (LDL-C of <70 mg/dL) is considered a therapeutic For patients with diabetes plus 1 major ASCVD risk option. COMPREHENSIVE METABOLIC PANLouis Rodrigues (14281) Reviewed date:09/10/2024 02:45:59 PM Interpretation: Performing Lab:ROBERT[facility] Kyca9739 [address] [facility], [facility] CenterHwamVH[address] Lai Daniels Notes/Report: NON-FASTING; NON-FASTING; NON-FASTING; NON-FASTING; NON-FAST GLUCOSE 209 65-99 mg/dL value >125 mg/dL indicates that they may have Fasting reference interval follow-up test. For someone without known diabetes, a glucose diabetes and this should be confirmed with a UREA NITROGEN (BUN) 14 7-25 mg/dL CREATININE 0.98 0.70-1.30 mg/dL EGFR 91 > OR = 60 mL/min/1.73m2 BUN/CREATININE RATIO SEE NOTE: 6-22 (calc) reference range. Not Reported: BUN and Creatinine are within SODIUM 137 135-146 mmol/L POTASSIUM 4.2 3.5-5.3 [...] Reviewed date:09/10/2024 02:45:59 PM Interpretation: Performing Lab:ROBERTO [address]re[address] [facility], [facility] CenterOrntTQ[address] Lai Daniels Notes/Report: NON-FASTING; NON-FASTING; NON-FASTING; NON-FASTING; NON-FAST WHITE BLOOD CELL COUNT 10.0 3.8-10.8 Thousand/ uL RED BLOOD CELL COUNT 5.91 4.20-5.80 Million/uL HEMOGLOBIN 17.8 13.2-17.1 g/dL HEMATOCRIT 52.6 38.5-50.0 % MCV 89.0 80.0-100.0 fL MCH 30.1 27.0-33.0 pg MCHC 33.8 32.0-36.0 g/dL condition. not clinically significant; however, it should be interpreted with caution in correlation with other For adults, a slight decrease in the calculated MCHC value (in the range of 30 to 32 g/dL) is most likely red cell parameters and the patient's clinical RDW 11.8 11.0-15.0 % PLATELET COUNT 318 140-400 Thousand/uL MPV 10.4 7.5-12.5 fL ABSOLUTE NEUTROPHILS 6290 3674-2701 cells/uL ABSOLUTE LYMPHOCYTES 2610 850-3900 cells/uL ABSOLUTE MONOCYTES 710 200-950 cells/uL ABSOLUTE EOSINOPHILS 320 15-500 cells/uL ABSOLUTE BASOPHILS 70 0-200 cells/uL NEUTROPHILS 62.9 LYMPHOCYTES 26.1 MONOCYTES 7.1 EOSINOPHILS 3.2 BASOPHILS 0.7 HEMOGLOBIN A1c (496) Reviewed date:09/10/2024 02:45:59 PM Interpretation: Performing Lab:ROBERTO [facility] [address], imageloopKlxnPL[address] Lai Daniels Notes/Report: NON-FASTING; NON-FASTING; NON-FASTING; NON-FASTING; NON-FAST HEMOGLOBIN A1c 8.3 <5.7 % of total Hgb test. For someone with known diabetes, a value <7% indicates For someone without known diabetes, a hemoglobin A1c that their diabetes is well controlled and a value duration of diabetes, age, comorbid conditions, and other considerations. value of 6.5% or greater indicates that they may have Currently, no consensus exists regarding use of hemoglobin A1c for diagnosis of diabetes for children. diabetes and this should be confirmed with a follow-up control. A1c targets should be individualized based on greater than or equal to 7% indicates suboptimal VITAMIN B12 (927) Reviewed date:09/10/2024 02:45:59 PM Interpretation: Performing Lab:ROBERT[facility] [address], imageloopLycuJU[address] Lai Daniels Notes/Report: NON-FASTING; NON-FASTING; NON-FASTING; NON-FASTING; NON-FAST VITAMIN B12 461 498-2520 pg/mL Ankle/Brachial Index--Cristi daysi BPs Reviewed date:09/24/2024 01:23:31 PM Interpretation: Performing Lab: Notes/Report: Echocardiogram Reviewed date:11/25/2024 12:06:23 PM Interpretation: Performing Lab: Notes/Report: Echocardiogram Reviewed date:11/25/2024 12:06:23 PM Interpretation: Performing Lab: Notes/Report: X ray : Spines, Lumbar Reviewed date:01/26/2025 02:52:03 PM Interpretation: Performing Lab: Notes/Report: X ray : Spines, Thoracic Spi ne Reviewed date:01/22/2025 04:56:01 PM Interpretation: Performing Lab: Notes/Report: Reason For Referral Reason [facility] Speech Eval and Treat Diagnosis 1 Sensorineural hearin g loss, bilateral (H90.3) Referral Organization [facility] Referring Provider First Name Zach Referring Provider Last Name Christianne Referring Provider Speciality Internal M edicine Referred Provider Specialty Audiologists General Notes Vy Barrientos 2024 03:49:19 PM >sent to Hearing and Speech Referral Priority Routine Reason echo Diagnosis 1 SOB (shortness of br eath) (R06.02) Referral Organization [facility] Referring Provider First Name Chase Referring Provider Last Name Kristen Referring Provider Speciality Family Pra ctice Referred Organization [facility] Referred Address [address] [place] [address],[address],[place] Referred Provider Specialty Diagnostic R adiology General Vy Hernandez 2024 10:13:08 AM >sent to [facility] to schedule Referral Priority Routine Reason [facility] in [place] Diagnosis 1 Primary erectile dys function (N52.9) Referral Organization [facility] Referring Provider First Name Zach Referring Provider Last Name Christianne Referring Provider Speciality Internal M edicine Referred Organization [facility] Referred Address [address] [place], [place],[address],[place] Referred Provider Specialty Urology General Notes Vy Barrientos 2024 12:12:17 PM >sent referral through [facility] portal_ They will call patient to schedule appt for [facility] Dr Fraga Referral Priority Routine Reason CT abd/pelvis with o ral contrast, eval for hernia recurrence Diagnosis 1 Periumbilical pain ( R10.33) Referral Organization [facility] ELEAZAR JONES Referring Provider First Name Chase Referring Provider Last Name Kristen Referring Provider Speciality Family Pra ctice Referred Organization [facility] Referred Address [address] [facility] [address], [place],[address],[place] Referred Provider Specialty Diagnostic R adiology General Notes Vy Barrientos 2024 04:50:46 PM >sent to [facility] to schedule Referral Priority Routine Medications Medication SIG (Take, Route, Frequency, Duration) Notes Start Date End Date Status GLUCOMETER 07/20/2022 Active metFORMIN HCl 500 MG 1 tab(s) orally onc e a day; Duration: 90 days Active Vitamin C 1000 MG 1 tab(s) orally once a day Active Vitamin A 10,000 UNITS 1 TAB PO QD Active Multivitamin 1 TAB ONCE A DAY Active Xanax 0.5 MG 1 tab(s) orally twic e a day as needed for anxiety; Duration: 30 days 11/27/2024 Active Ozempic (2 MG/DOSE) 8 MG/3ML inject 2mg Subcutaneous 09/10/2024 Acti ve Famotidine 40 MG 1 tab(s) orally once a day (at bedtime); Duration: 90 days Active rOPINIRole HCl 0.25 MG 1 tab(s) orally a t night as needed for restless legs; Duration: 30 days 02/08/2024 Active Rosuvastatin Calcium 10 MG Take 1 tablet by mouth once daily; Duration: 90 Active Diclofenac Sodium 1 % 2 gram applied top ically 4 times a day; Duration: 30 days 12/12/2023 Active Jardiance 25 MG Take 1 tablet by hailna once daily; Duration: 90 Active Mupirocin 2 % 1 application Door Furring Installer ally Twice a day; Duration: 7 days 04/19/2025 Active TEST STRIPS AND LANCETS NA ONCE A DAY NA ONCE A DAY; Duration: 30 DAYS 07/20/2022 Active hydrOXYzine HCl 25 MG 1 tab orally every morning and once a day as needed for anxiety; Duration: 90 days Active Levothyroxine Sodium 137 MCG 1 tab(s) orally once a day; Duration: 30 days 01/01/2023 Active Pantoprazole Sodium 40 MG Take 1 tablet by mouth once daily; Duration: 90 Active Flonase Allergy Relief 50 MCG/ACT as directed in each nostril once a day; Duration: 30 days 08/16/2022 Active Sertraline HCl 50 MG Take 1 tablet by [facility] once daily; Duration: 90 Active Allergy Relief (Cetirizine) 10 MG 1 tab(s) orally once a day; Duration: 30 days Active Journavx 50 MG 1 tablet Orally twic e a day; Duration: 5 days 01/21/2025 Active Immunizations Vaccine Route Administration Date Status [...] W/U Status Risk Notes Problem Autoimmune thyroiditis (02623211) Autoimmune thyroiditis (E06.3) Active confirmed Problem Mixed hyperlipidemia (330849118) Mixed hyperlipidemia (E78.2) Active confirmed Problem Encephalopathy (93990745) Encephalopathy, unspecified (G93.40) Active confirmed Problem Retinal pigment epithelial dystrophy (disorder) (714386922595283) 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 Problem Sensorineural hearing loss of bilateral ears (disorder) (560484922) Sensorineural hearing loss, bilateral (H90.3) Active confirmed Problem Pemphigus erythematosus (90017634) Pemphigus erythematosus (L10.4) Active confirmed Problem Loose body in joint of shoulder region (318580142) Loose body in right shoulder (M24.011) Active confirmed Problem Seizure (00335968) Seizure (R56.9) Active confi rmed Problem Restless legs (31127897) RLS (restless legs syndrome) (G25.81) Active confirmed Problem Adjustment disorder with mixed emotional features (61513934) Situational mixed anxiety and depressive disorder (F43.23) Active confirmed Problem Obese class I (610126978548947) BMI 33.0-33.9,adult (Z68.33) Active confirmed Problem Hypothyroidism (99789128) Hypothyroidism, unspecified hypothyroidism type (E03.9) Active confirmed Problem Generalized anxiety disorder (24496034) JOCELIN (generalized anxiety disorder) (F41.1) Active confirmed Problem Shoulder joint pain (758825651) Acute pain of right shoulder (M25.511) Active confirmed Problem Ventricular premature complex (disorder) (681750728) PVC (premature ventricular contraction) (I49.3) Active confirmed Problem Hyperglycemia due to type 2 diabetes mellitus (021854136842081) Diabetes mellitus with hyperglycemia (E11.65) Active confirmed Problem Mild recurrent major depression (66627589) Mild episode of recurrent major depressive disorder (F33.0) Active confirmed Problem Tear of right rotator cuff (13443058871946900) Rotator cuff tear, right (M75.101) Active confirmed Problem Gastroesophageal reflux disease (disorder) (045332126) Chronic GERD (K21.9) Active confirmed Problem Type II diabetes mellitus without complication (179917246) Type 2 diabetes mellitus without complication, without long-term current use of insulin (E11.9) Active confirmed Problem Localized, primary osteoarthritis of the shoulder region (320264450) Arthritis of right shoulder region (M19.011) Active confirmed Problem Supraventricular premature beats (86755459) PAC (premature atrial contraction) (I49.1) Active confirmed Problem Laboratory test result abnormal (406146821) Abnormal laboratory test result (R89.9) Active confirmed Problem Retinitis pigmentosa (99123991) 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 Problem Primary erectile dysfunction (288417579) Primary erectile dysfunction (N52.9) Active confirmed Vital Signs Heart Rate 104 /min 04/19/2025 Temperature 97.3 degrees Fahrenheit 04/19/2025 Oximetry 96 11/16/2024 Blood pressure diastolic 78 mm Hg 04/19/2025 Height 6ft 1in in 04/19/2025 Blood pressure systolic 132 mm Hg 04/19/2025 Weight 255.2 lbs 04/19/2025 BMI 33.67 kg/m2 04/19/2025 Encounters Encounter Location Date Provider Diagnosis [facility] [address] [place] [address] 09/05/2024 Provider Migration Chronic GERD K21.9 [facility] [address] [place] [address] 09/09/2024 Zach Warrenrocio Type 2 diabetes mellitus without complication, without [...] disorder F33.0 and Routine medical exam Z00.00 [facility] [address] [facility] [address] [place] [address] 09/28/2024 Chase Peterson Type 2 diabetes mellitus without complication, without long-term current use of insulin E11.9 ; JOCELIN (generalized anxiety disorder) F41.1 ; Hypothyroidism, unspecified hypothyroidism type E03.9 and RLS (restless legs syndrome) G25.81 [facility] [address] [place] [address] 11/16/2024 Chase Peterson SOB (shortness of breath) R06.02 and Intermittent chest pain R07.9 [facility] [address] [place] [address] 01/06/2025 Zach Faust PAC (premature atria l contraction) I49.1 ; PVC (premature ventricular contraction) I49.3 ; Primary erectile dysfunction N52.9 and Diabetes mellitus with hyperglycemia E11.65 [facility] [address] [place] [address] 01/21/2025 Chase Peterson Acute midline thorac ic back pain M54.6 ; Acute midline low back pain without sciatica M54.50 and Acute traumatic pain G89.11 [facility] [address] [place] [address] 04/19/2025 Chase Peterson Abrasion T14.8XXA ; Other specified postprocedural states Z98.890 ; Personal history of other diseases of the digestive system Z87.19 and Periumbilical pain R10.33 [facility] [address] [address] 06/30/2024 Chase Kristen [facility] [address] [facility] [address] [place] [address] 08/10/2024 Chase Crandallence [facility] [address] [facility] [address] [place] [address] 09/10/2024 Chase Kristen [facility] [address] [address] 11/27/2024 Zach Faust JOCELIN (generalized anxiety disorder) F41.1 [facility] [address] [facility] [address] [place] [address] 11/30/2024 Chase Crandallence [facility] [address] [address] 02/02/2025 Chase Peterson Acute midline low ba ck pain without sciatica M54.50 Assessments Encounter Date Diagnosis (ICD Code) Assessment Notes Treatment Notes Treatment Clinical Notes Section Notes 09/05/2024 Chronic GERD (ICD-10 - K21.9) 09/09/2024 [...] back pain without sciatica (ICD-10 - M54.50) 02/02/2025 Acute midline low back pain without sciatica (ICD-10 - M54.50) 04/19/2025 Other specified postprocedural states (ICD-10 - Z98.890) 04/19/2025 Abrasion (ICD-10 - T14.8XXA) 04/19/2025 Personal history of other diseases of the digestive system (ICD-10 - Z87.19) 01/21/2025 Acute traumatic pain (ICD-10 - G89.11) 01/06/2025 Primary erectile dysfunction (ICD-10 - N52.9) Patient doesnt want a pill that he has to take each time to get erection, wants something more permanent -will check Testosterone and offer for urology referal today 09/28/2024 Hypothyroidism, unspecified hypothyroidism type (ICD-10 - E03.9) per endocrine 09/09/2024 Encephalopathy, unspecified (ICD-10 - G93.40) 09/09/2024 Pigmentary retinal dystrophy (ICD-10 - H35.52) Follows with ophthalmology for eye exam 09/28/2024 RLS (restless legs syndrome) (ICD-10 - G25.81) continue requip 04/19/2025 Periumbilical pain (ICD-10 - R10.33) 01/06/2025 Diabetes mellitus with hyperglycemia (ICD-10 - [...] with vaccines except needs Tdap today. Non-smoker. 09/28/2024 Other Plan Of Treatment Pending Test Test Name Order Date CT Scan : Abdomen and Pelvis with oral c ontrast only 04/19/2025 G-Ykgs-Dydzreilexqpl Antibody 12/23/2022 Physical Therapy Eval and Treat 02/03/20 25 Insurance Providers Payer Name Payer Address Payer Phone Subscriber Number Group Number Insured Name Patient Relationship to Insured Coverage Start Date Coverage End Date [employer] MEDIC[employer] DUAL [address] [address] [place] [address] [id number] Lai Caballero Self - patient is the [...]
--- OUTSIDE RECORDS SUMMARY | 2025-04-28 07:22 | XMS_ITS | Clinical Summary ---
[facility] Address [address] [place] [address] Care Team Providers Care Parts Room Assistant Name Role Phone Zach Faust MD Primary Care Provider + [phone] Allergies No known active allergies Medications cetirizine (zyrTEC) 10 MG tabletIndicatio ns:Seasonal Allergic Rhinitis Take 1 tablet by mouth Daily. Indications: Hayfever Active Vitamin A 3 MG (74986 UT) capsule Take 1 capsule by mouth Daily. Active ALPRAZolam (XANAX) 0.25 MG tabletIndicatio ns:Anxiety Take 1 tablet by mouth 3 (Three) Times a Day As Needed for Anxiety. Indications: Feeling Anxious 3 Active famotidine (PEPCID) 40 MG tablet Take 1 tablet by mouth At Night As Needed. 3 Active pantoprazole (PROTONIX) 40 MG EC tablet Take 1 tablet by mouth Daily. Active FREESTYLE LITE test strip 1 each by Other route Daily. 4 Active rosuvastatin (CRESTOR) 10 MG tablet 1 tablet Daily. Acti ve hydrOXYzine (ATARAX) 25 MG tablet 5 Active multivitamin with minerals (MULTIVITAMIN ADULT PO) Daily. Active ascorbic acid (VITAMIN C) 1000 MG tablet Take 1 tablet by mouth Daily. Active Jardiance 25 MG tablet tablet Take 1 tablet by mouth Daily. 5 Active rOPINIRole (REQUIP) 0.25 MG tablet TAKE 1 TABLET BY MOUTH ONCE DAILY AT NIGHT NEEDED FOR RESTLESS LEGS Active sertraline (ZOLOFT) 50 MG tablet Take 1 tablet by mouth Daily. 5 Active Suzetrigine (Journavx) 50 MG tablet Every 12 (Twelve) Hours. 5 Active tadalafil (CIALIS) 5 MG tablet Take by oral route for 30 days. Active ALPRAZolam (XANAX) 0.5 MG tablet Take 1 tablet by mouth 2 (Two) Times a Day As Needed. for anxiety 5 Active Semaglutide, 2 MG/DOSE, (Ozempic, 2 MG/DOSE,) 8 MG/3ML solution pen-injector Inject 2 mg under the skin into the appropriate area as directed 1 (One) Time Per Week. 2 mL 5 5 Active levothyroxine (SYNTHROID, LEVOTHROID) 175 MCG tabletIndicatio ns:Hypothyroidi sm due to Rickie's thyroiditis Take 1 tablet by mouth once daily 30 tablet 3 5 Active metFORMIN (GLUCOPHAGE) 500 MG tabletIndicatio ns:Type 2 Diabetes Mellitus Take 1 tablet by mouth 2 (Two) Times a Day With Meals. Indications: Type 2 Diabetes 180 tablet 3 5 Active metFORMIN (GLUCOPHAGE) 500 MG tabletIndicatio ns:Type 2 Diabetes Mellitus Take 1 tablet by mouth 2 (Two) Times a Day With Meals. Indications: Type 2 Diabetes 180 tablet 3 5 025 Discontin ued(Reord er) Active Problems Problem Noted Date Diagnosed Date Stridor 09/04/2022 Seizure 08/26/2022 Acute respiratory failure with hypoxia 3 Bilateral Pleural Effusions s/p Rt thoracentesis with [...] without long-term current use of insulin 10/17/2019 Assessment & Plan (02/19/2025 2:08 PM EDT): Eye- has exam tomorrow Feet- no issues Kidneys- updated Today A1c worse Plan in metformin Assessment & Plan (08/14/2024 2:20 PM EDT): [...] Encounters Date Type Department Care Team Description 04/20/2025 Telephone [facility] END[facility] [address] [place] [address] Juan J Duke MD 04/12/2025 Telephone [facility] ENDO[facility] [address] [place] [address] Juan J Duke MD 03/16/2025 Refill [facility] [address] [place] [address] Juan J Duke MD 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 02/22/2025 Results Follow-Up [facility] [address] [address] Juan J Duke MD 02/19/2025 1:45 PM EDT Office Visit [facility] END[facility] [address] [address] Juan J Duke MD Type 2 diabetes mellitus with hyperglycemia, without long-term current use of insulin (Primary Dx) 02/19/2025 Travel 02/12/2025 Refill [facility] END[facility] [address] [place] [address] Juan J Duke MD from Last 3 Months Immunizations Immunization Administration Dates Next Due Fluzone >6mos 07/21/2024,03/09/2019 Fluzone (or Fluarix & Flulaval for VFC) >6mos ,05/11/2022 Pneumococcal Conjugate 20-Valent (PCV20) 023 Shingrix 01/27/2023,11/11/2022 Tdap 09/09/2024,01/22/2017 Family History Medical History Relation Name Comments [...] Passive Smoke Exposure: Never Smokeless Tobacco: Never Tobacco Cessation:Counseling Given: Not Answered Alcohol Use Standard Drinks/Week Comments Not Currently [...] GED or equivalent No 09/01/2022 Preferred Language Mongolian 09/01/2022 PHQ-2 Answer Date Recorded Retired PHQ-9: Brief Depression Severity Measure Score 0 09/01/2022 Sex and Gender Information Value Date Recorded Sex Assigned at Male 11/02/2024 11:25 AM EDT Legal Sex Male 6:21 PM EDT Gender Identity Not on file Sexual Orientation Not on file Last Filed Vital Signs Vital Sign Reading Time Taken Comments Blood Pressure 120/78 02/19/2025 1:47 PM EDT Pulse 81 02/19/2025 1:47 PM EDT Temperature 36.6 C (97.8 F) 10/31/2022 12:36 PM EDT Respiratory Rate 18 02/19/2025 1:47 PM EDT Oxygen Saturation 94% 02/19/2025 1:47 PM EDT Inhaled Oxygen Concentration - - Weight 115 kg (254 lb 9.6 oz) 02/19/2025 1:47 PM EDT Height 185.4 cm (6' 0.99 ) 02/19/2025 1:47 PM ED T Body Mass Index 33.6 02/19/2025 1:47 PM EDT Plan of Treatment Upcoming Encounters Date Type Department Care Team (Late st Contact Info) Description 08/20/2025 10:00 AM EDT Office Visit [facility] ENDOCRIN[facility] [address] [phone] Juan J Duke MD [address] [facility] [address] [place] [address] 11/01/2025 1:00 PM EDT Office Visit [facility] NEUR[facility] [address] [facility] [address] [place] [address] Aracely Gil MD [address] [facility] [address] [place] [address] Health Maintenance Due Date Last Done Comments DIABETIC EYE EXAM 1978 DIABETIC FOOT EXAM 1978 Hepatitis B (1 of 3 - 19+ 3- dose series) 09/18/1987 COLON CANCER SCREENING 5 YEA R SIGMOIDOSCOPY [address] COLONOGRAPHY 2013 FECAL OCCULT BLOOD TEST 2013 FIT Testing (1 year) 2013 ANNUAL WELLNESS VISIT 08/31/2022 INFLUENZA VACCINE 01/01/2025 07/21/2024, , 05/11/2022, Additional history exists HEMOGLOBIN A1C 08/19/2025 02/19/2025, 08/01, 02/14/2024, Additional history exists URINE MICROALBUMIN-CREATININ E RATIO (uACR) 02/20/2026 02/20/2025 COLOGUARD 10/01/2026 10/02/2023 COLORECTAL CANCER SCREENING 10/01/2026 TDAP/TD VACCINES (3 - Td or Tdap) 09/09/2034 025, 01/22/2017 HEPATITIS C SCREENING Completed 08/28/2022 Pneumococcal Vaccine 50+ Completed 11/11/2022 ZOSTER VACCINE Completed 01/27/2023, 11/11/2022 Procedures Procedure Name Priority Date/Time Associated Diagnosis Comments MICROALBUMIN / CREATININE URINE RATIO Routine 02/19/2025 2:11 PM EDT Type 2 diabetes mellitus with hyperglycemia, without long-term current use of insulin COMPREHENSIVE METABOLIC PANEL Routine 02/19/2025 2:11 PM EDT Type 2 diabetes mellitus with hyperglycemia, without long-term current use of insulin POCT GLYCOSYLATED HEMOGLOBIN (HGB A1C) Routine 02/19/2025 1:58 PM EDT Type 2 diabetes mellitus with hyperglycemia, without long-term current use of insulin POCT GLUCOSE, BLD (NON STRIP) Routine 02/19/2025 1:57 PM EDT Type 2 diabetes mellitus with hyperglycemia, without long-term current use of insulin HEPATITIS C ANTIBODY Routine 08/28/2022 2:34 PM EDT from Last 3 Months or Most Recently Relevant to Health Maintenance Results * Microalbumin / Creatinine Urine Ratio - Urine, Clean Catch (02/19/2025 2:11 PM EDT) Microalbumin/C reatinine Ratio 02/20/2025 12:39 AM T [facility] Comment:Unable to calculate Creatinine, Urine 59.4 mg/dL 02/20/2025 12:39 AM EDT [facility] Microalbumin, Urine <1.2 mg/dL 02/20/2025 12:39 AM T [facility] Urine Urine specimen obtained by clean catch procedure / Unknown Collection / Unknown 02/19/2025 2:11 PM EDT 02/19/2025 2:12 PM EDT Juan J Duke MD URINE ORDERABLES Final Result [facility]
[address] [place] [address], * (ABNORMAL) Comprehensive Metabolic Panel (02/19/2025 2:11 PM EDT) Pathologist [facility] Glucose 212(H) 65 - 99 mg/dL 02/20/2025 12:47 AM [facility] BUN 12.0 6.0 - 20.0 mg/dL 02/20/2025 12:47 AM [facility] Creatinine 1.25 0.76 - 1.27 mg/dL 02/20/2025 12:47 AM [facility] Sodium 137 136 - 145 mmol/L 02/20/2025 12:47 AM T [facility] Potassium 4.2 3.5 - 5.2 mmol/L 02/20/2025 12:47 AM [facility] Chloride 101 98 - 107 mmol/L 02/20/2025 12:47 AM [facility] CO2 23.4 22.0 - 29.0 mmol/L 02/20/2025 12:47 AM [facility] Calcium 9.1 8.6 - 10.5 mg/dL 02/20/2025 12:47 AM [facility] Total Protein 7.5 6.0 - 8.5 g/dL 02/20/2025 12:47 AM [facility] Albumin 4.2 3.5 - 5.2 g/dL 02/20/2025 12:47 AM [facility] ALT (SGPT) 26 1 - 41 U/L 02/20/2025 12:47 AM [facility] AST (SGOT) 16 1 - 40 U/L 02/20/2025 12:47 AM [facility] Alkaline Phosphatase 131(H) 39 - 117 U/L 02/20/2025 12:47 AM [facility] Total Bilirubin 0.4 0.0 - 1.2 mg/dL 02/20/2025 12:47 AM [facility] Globulin 3.3 gm/dL 02/20/2025 12:47 AM [facility] A/G Ratio 1.3 g/dL 02/20/2025 12:47 AM [facility] BUN/Creatinine Ratio 9.6 7.0 - 25.0 02/20/2025 12:47 AM [facility] Anion Gap 12.6 5.0 - 15.0 mmol/L 02/20/2025 12:47 AM [facility] eGFR 67.6 >60.0 mL/min/1.7 3 02/20/2025 12:47 AM [facility] Blood Structure of left upper limb / Unknown Venipuncture / Unknown 02/19/2025 2:11 PM EDT 02/19/2025 2:12 PM [facility] - 02/20/2025 12:47 AM EDT GFR Categories in Chronic Kidney Disease (CKD) GFR Category GFR (mL/min/1.73) Interpretation G1 90 or greater Normal or high (1) G2 60-89 Mild decrease (1) G3a 45-59 Mild to moderate decrease G3b 30-44 Moderate to severe decrease G4 15-29 Severe decrease G5 14 or less Kidney failure (1)In the absence of evidence of kidney disease, neither GFR category G1 or G2 fulfill the criteria for CKD. eGFR calculation 2020 CKD-EPI creatinine equation, which does not include race as a factor us Juan J Duke MD LAB BLOOD ORDERABLES F inal Result [facility]
[address] [place] [address], [place] [phone] * (ABNORMAL) POC Glycosylated Hemoglobin (Hb A1C) (02/19/2025 1:58 PM EDT) [facility] Hemoglobin A1C 7.9(A) 4.5 - 5.7 % [facility] Lot Number [id number] [facility] Expiration Date 10/05/26 [facility] Blood 02/19/2025 1:58 PM EDT us Juan J Duke MD POINT OF CARE TEST ORD ERABLES Final Result [facility]
[address] [place] [address], [place] [phone] * (ABNORMAL) POC Glucose, Blood (02/19/2025 1:57 PM EDT) [facility] Glucose 224(A) 70 - 130 mg/dL Lot Number [id number] Expiration Date 07/19/25 Blood 02/19/2025 1:57 PM EDT us Juan J Duke MD POINT OF CARE TEST ORD ERABLES Final Result * Hepatitis C Antibody (08/28/2022 2:34 PM EDT) [facility] Hepatitis C Ab Non-Reacti ve Non-Reacti ve 08/28/2022 3:27 PM EDT [facility] Blood Line / Unknown 08/28/2022 2: 34 PM EDT 08/28/2022 2:48 PM EDT Narrative [facility] - 08/28/2022 3:27 PM EDT Results may be falsely decreased if patient taking Biotin. Charles Villa MD LAB BLOOD ORDERABL ES Final Result [facility]
[address] [place] [address], from Last 3 Months or Most Recently Relevant to Health Maintenance Insurance [employer] MED[employer]ARE ADVANTAGE [facility] HMO Advance Directives * CPR (Attempt to [...] or is breathing): Full Support Care Teams Parts Room Assistant Relationship Specialty Start Date End Date Zach Faust MD [address] [place] [id number] PCP - General Adolescent Medicine 08/23/22
[2025-04-28] MEDS: BARIUM SULFATE(READI-CAT2);450ML BOTTLE 450 ML PO (07:31)
== END 2025-04-28 23:59 | disposition home or self-care (01) ==
LOC: RAD 07:18
PROVIDERS: PCP Nurse Practitioner Family; Visit Provider Nurse Practitioner Family
DX: R10.33 Periumbilical pain (principal); Z87.19 Personal history of other diseases of the digestive system; Z98.890 Other specified postprocedural states
CPT/HCPCS: 74176